=== PATIENT | female | born 1955 | race Caucasian/White ===

== ENCOUNTER → 2017-03-24 | Outpatient (CLI) | payer BC ==
[~2017-03-24] MED LIST: ATOR-24 PO; CHOL100010 PO; DVN80 PO; HYDR25TA4 PO; LEVO125T5 PO; METO50TA16 PO
[2017-03-24 10:33] LABS: BASO % 0.7 %; BASO ABS # 0.04 K/uL (0-0.2); COMPLETE YES; EOS % 3.7 %; HEMATOCRIT 42.3 % (37-47); IG% 0.2 %; LYMPH % 21.2 %; LYMPH ABS # 1.15 K/uL (1.2-3.4); MEAN CELL VOLUME 88.5 fL (80-100); MEAN CORPUSCULAR HEMOGLOBIN 29.1 pg (25-34); MEAN CORPUSCULAR HGB CONC 32.9 g/dl (32-36); MONO % 11.3 %; NEUT % 62.9 %; PLATELET COUNT 251 K/uL (130-400); RED BLOOD COUNT 4.78 M/uL (4.2-5.4); WHITE BLOOD COUNT 5.42 K/uL (4.8-10.8)
[2017-03-24 10:40] LABS: ESTIMATED AVERAGE GLUCOSE 123 mg/dl; HA1C FLAG Normal (Normal)
[2017-03-24 10:58] LABS: ALT/SGPT 35 U/L (12-78); AST/SGOT 21 U/L (15-37); BLOOD UREA NITROGEN 16 mg/dl (7-18); BUN/CREATININE RATIO 16.8 (10-20); CALCIUM 8.8 mg/dl (8.5-10.1); CARBON DIOXIDE 32 mmol/L (21-32); CHLORIDE 105 mmol/L (98-107); CREATININE 0.93 mg/dl (0.60-1.20); GLUCOSE 102 mg/dl (70-99); POTASSIUM 3.7 mmol/L (3.5-5.1); SODIUM 143 mmol/L (136-145)
[2017-03-24 11:09] LABS: CHOLESTEROL 145 mg/dl (0-200); CHOLESTEROL/HDL RATIO 2.7; HDL CHOLESTEROL 54 mg/dl; LDL CHOLESTEROL CALCULATED 64 mg/dl; TRIGLYCERIDES 134 mg/dl (0-150); VERY LOW DENSITY LIPOPROT CALC 27 mg/dl
== END | disposition home or self-care (01) ==
LOC: C.LAB 09:25
PROVIDERS: ATTEND Physician Assistant
DX: E03.9 Hypothyroidism, unspecified (principal); E78.00 Pure hypercholesterolemia, unspecified

== ENCOUNTER → 2017-09-28 | Outpatient (CLI) | payer BC ==
[2017-09-28 09:37] LABS: BASO % 0.6 %; BASO ABS # 0.04 K/uL (0-0.2); COMPLETE YES; EOS % 3.3 %; HEMATOCRIT 41.2 % (37-47); IG% 0.5 %; LYMPH % 22.2 %; LYMPH ABS # 1.41 K/uL (1.2-3.4); MEAN CORPUSCULAR HEMOGLOBIN 29.9 pg (25-34); MEAN CORPUSCULAR HGB CONC 33.3 g/dl (32-36); MEAN PLATELET VOLUME 9.8 fL (7.4-10.4); MONO % 8.8 %; NEUT % 64.6 %; PLATELET COUNT 287 K/uL (130-400); RED BLOOD COUNT 4.58 M/uL (4.2-5.4); WHITE BLOOD COUNT 6.35 K/uL (4.8-10.8)
[2017-09-28 09:56] LABS: ESTIMATED AVERAGE GLUCOSE 123 mg/dl; HA1C FLAG Normal (Normal)
[2017-09-28 10:09] LABS: ALT/SGPT 48 U/L (12-78); AST/SGOT 31 U/L (15-37); BLOOD UREA NITROGEN 13 mg/dl (7-18); BUN/CREATININE RATIO 13.5 (10-20); CALCIUM 8.6 mg/dl (8.5-10.1); CARBON DIOXIDE 30 mmol/L (21-32); CHLORIDE 103 mmol/L (98-107); CREATININE 0.93 mg/dl (0.60-1.20); GLUCOSE 106 mg/dl (70-99); POTASSIUM 3.4 mmol/L (3.5-5.1); SODIUM 136 mmol/L (136-145)
[2017-09-28 10:20] LABS: CHOLESTEROL 135 mg/dl (0-200); CHOLESTEROL/HDL RATIO 2.5; HDL CHOLESTEROL 53 mg/dl; LDL CHOLESTEROL CALCULATED 57 mg/dl; TRIGLYCERIDES 125 mg/dl (0-150); VERY LOW DENSITY LIPOPROT CALC 25 mg/dl
== END | disposition home or self-care (01) ==
LOC: C.LAB1850 08:52
PROVIDERS: ATTEND Physician Assistant
DX: E78.00 Pure hypercholesterolemia, unspecified (principal); I10 Essential (primary) hypertension; R73.9 Hyperglycemia, unspecified

== ENCOUNTER → 2017-12-10 | Day surgery (SDC) | payer BC ==
[2017-11-27 10:46] VITALS: Ht 165.1 cm; Wt 130.4 kg
[~2017-12-10] VITALS: Ht 165.1 cm; Wt 130.4 kg
[~2017-12-10] MED LIST changes: -CHOL100010 PO; +LIDOCAINE HCL 2% 2 ML VIAL (20MG/ML) ONE; +PROPOFOL IV EMULSION 10 MG/ML 20 ML VIAL IV ONE; +SODIUM CHLORIDE 0.9% 500ML 500 ML IV ONE
--- NOTE | 2017-12-10 11:21 | Endo History and Physical ---
History & Physical Date of Service: Dec 10, 2017. Chief Complaint: screening Referring Physician: Dr. Pham History of Present Illness 62 yo CF who presents for screening colonoscopy. Past Surgical History Hx Cardiac Surgery: No Hx Internal Defibrillator: No Hx Pacemaker: No Hx Abdominal Surgery: No Hx of Implantable Prosthesis: No Hx Post-Op Nausea and Vomiting: No Hx Cancer Surgery: No Hx Thoracic Surgery: No Hx Orthopedic: No Hx Urinary Tract Surgery: No Family History IBD Social History Smoking Status: Never Smoker Hx Substance Use: No Hx Alcohol Use: No Allergies Coded Allergies: No Known Allergies (Unverified , 12/10/17) Current Medications Reported Home Medications Medications Dose Route/Sig Max Daily Dose Days Date Category Lopressor (Metoprolol Tartrate) 50 Mg Tab 50 Mg PO BID 04/05/16 Reported Diovan (Valsartan) 80 Mg Tab 80 Mg PO QAM 04/05/16 Reported Hctz (Hydrochlorothiazide) 25 Mg Tab 25 Mg PO QAM 04/05/16 Reported Lipitor (Atorvastatin Calcium) 40 Mg Tab 40 Mg PO HS 04/05/16 Reported Levothyroxine Sodium 125 Mcg Tab 125 Mcg PO QAM 04/05/16 Reported Vital Signs Weight (Kilograms): 130.45 Height (Feet): 5 Height (Inches): 5 Date Time Temp Pulse Resp B/P (MAP) Pulse Ox O2 Delivery O2 Flow Rate FiO2 12/10/17 10:31 36.6 85 20 148/99 (115) 95 Room Air Physical Exam General Appearance: WD/WN, no apparent distress Respiratory/Chest: Auscultation: breath sounds normal Cardiovascular: Heart Auscultation: RRR Abdomen: Bowel Sounds: normal Inspection & Palpation: soft, non-distended, no tenderness, guarding & rebound Assessment and Plan Assessment: 62 yo CF who presents for screening colonoscopy. Plan: Proceed with colonoscopy.
--- NOTE | 2017-12-10 12:12 | Discharge Instructions ---
Endoscopy Patient Instructions Date / Procedure(s) Performed Dec 10, 2017. Colonoscopy Allergy Information Coded Allergies: No Known Allergies (Unverified , 12/10/17) Discharge Date / Findings Dec 10, 2017. Diverticulosis Internal hemorrhoids Medication Instructions OK to resume all medications today as prescribed Reported Home Medications Medications Dose Route/Sig Max Daily Dose Days Date Category Lopressor (Metoprolol Tartrate) 50 Mg Tab 50 Mg PO BID 04/05/16 Reported Diovan (Valsartan) 80 Mg Tab 80 Mg PO QAM 04/05/16 Reported Hctz (Hydrochlorothiazide) 25 Mg Tab 25 Mg PO QAM 04/05/16 Reported Lipitor (Atorvastatin Calcium) 40 Mg Tab 40 Mg PO HS 04/05/16 Reported Levothyroxine Sodium 125 Mcg Tab 125 Mcg PO QAM 04/05/16 Reported Provider Instructions Activity Restrictions - No exercising or heavy lifting for 24 hours. - Do not drink alcohol the day of the procedure. - Do not drive a car or operate machinery until the day after the procedure. - Do not make any important decisions or sign important papers in 24 hours after the procedure. Following Day: - Return to full activity which may include returning to work/school. Diet Start your diet with liquids and light foods (jello, soup, juice, toast). Then eat your usual diet if not nauseated. Treatment For Common After Affects For mild abdominal pain, bloating, or excessive gas: - Rest - Eat lightly - Lie on right side Follow-Up Information Follow-up with Dr. Pham as scheduled Anesthesia Information What You Should Know You have had a procedure that required some medicine to reduce anxiety and discomfort. This treatment is called moderate sedation. After receiving the treatment, you may be sleepy, but you will be able to breathe on your own. The effects of the treatment may last for several hours. Follow these instructions along with Activity/Diet recommendations noted above: * Do NOT do anything where dizziness or clumsiness would be dangerous. * Rest quietly at home today, then you can be up and about tomorrow. * Have a responsible person stay with you the rest of today. * You may have had an I.V. today. If so, you may take the dressing off later today. Recommendations Call your doctor if: * Trouble breathing * Continuous vomiting for more than 24 hours * Temperature above 101 degrees * Severe abdominal pain or bloating * Pain not relieved by pain medicine ordered * There is increased drainage or redness from any incision * A large amount of rectal bleeding greater than 2-3 tablespoons. (If you had a polyp/s removed or have hemorrhoids, a small amount of blood - from the rectum is to be expected.) * You have any unanswered questions or concerns. IN THE EVENT OF A SERIOUS EMERGENCY, GO TO THE NEAREST EMERGENCY ROOM Your discharge instructions were prepared by provider Puma Leon. Patient Instructions Signature Page Pattie Ackerman Patient (or Guardian) Signature/Date: I have read and understand the instructions given to me by my caregivers. Caregiver/RN/Doctor Signature/Date: The above-named patient and/or guardian has received patient instructions on this date. + Original Patient Signature Page (only) stays with chart. Please make copy for patient.
--- NOTE | 2017-12-10 12:17 | GI REPORT ---
Procedure Date: 12/10/2017 11:18 AM Procedure: Colonoscopy Indications: Screening for colorectal malignant neoplasm Medicines: Monitored Anesthesia Care Complications: No immediate complications. Estimated Blood Loss: Estimated blood loss: none. Procedure: Pre-Anesthesia Assessment: - Prior to the procedure, a History and Physical was performed, and patient medications and allergies were reviewed. The patient's tolerance of previous anesthesia was also reviewed. The risks and benefits of the procedure and the sedation options and risks were discussed with the patient. All questions were answered, and informed consent was obtained. Prior Anticoagulants: The patient has taken no previous anticoagulant or antiplatelet agents. ASA Grade Assessment: III - A patient with severe systemic disease. After reviewing the risks and benefits, the patient was deemed in satisfactory condition to undergo the procedure. After I obtained informed consent, the scope was passed under direct vision. Throughout the procedure, the patient's blood pressure, pulse, and oxygen saturations were monitored continuously. The scope was introduced through the anus and advanced to the terminal ileum. The colonoscopy was performed without difficulty. The patient tolerated the procedure well. The quality of the bowel preparation was good. The terminal ileum, ileocecal valve, appendiceal orifice, and rectum were photographed. Findings: The perianal and digital rectal examinations were normal. Multiple small-mouthed diverticula were found in the sigmoid colon. Non-bleeding internal hemorrhoids were found during retroflexion. The hemorrhoids were small. Impression: - Diverticulosis in the sigmoid colon. - Non-bleeding internal hemorrhoids. - No specimens collected. Recommendation: - Resume previous diet. - Continue present medications. - Repeat colonoscopy in 10 years for surveillance. - Return to primary care physician as previously scheduled. Puma Leon, 12/10/2017 12:16:54 PM This report has been signed electronically. Note Initiated On: 12/10/2017 11:18 AM I attest to the content of the Intraoperative Record and orders documented therein, exceptions below
[2017-12-10 12:27] VITALS: BP 137/89; PULSE 76; O2SAT 97
--- NOTE | 2017-12-10 12:33 | Anesthesiology Progress Note ---
Anesthesia Post Op Note Date & Time Dec 10, 2017 at 12:33 Vital Signs Pain Intensity: 0 Vital Signs Past 12 Hours Date Time Temp Pulse Resp B/P (MAP) Pulse Ox O2 Delivery O2 Flow Rate FiO2 12/10/17 12:27 76 18 137/89 (105) 97 Room Air 12/10/17 12:12 73 20 117/82 (94) 98 Room Air 12/10/17 11:57 73 16 114/75 (88) 97 Room Air 12/10/17 10:31 36.6 85 20 148/99 (115) 95 Room Air Notes Mental Status: alert / awake / arousable, participated in evaluation Pt Amnestic to Procedure: Yes Nausea / Vomiting: adequately controlled Pain: adequately controlled Airway Patency, RR, SpO2: stable & adequate BP & HR: stable & adequate Hydration State: stable & adequate Anesthetic Complications: no major complications apparent
== END | disposition home or self-care (01) ==
LOC: C.GI 10:13
PROVIDERS: ATTEND Internal Medicine
DX: Z12.11 Encounter for screening for malignant neoplasm of colon (principal); K57.30 Diverticulosis of large intestine without perforation or abscess without bleeding; K64.8 Other hemorrhoids; Z79.899 Other long term (current) drug therapy

== ENCOUNTER 2023-08-05 11:26 | Inpatient (IN) ==
[2023-08-05 12:39] LABS: Basophils % (auto) 1.4 %; Eosinophils # (auto) 0.03 K/uL (0.00-0.50); Eosinophils % (auto) 0.4 %; Hematocrit (blood only) 35.7 % (37.0-47.0); Hemoglobin 11.9 g/dl (12.0-16.0); Immature Granulocytes # (auto) 0.01 K/uL (0.01-0.20); Immature Granulocytes % (auto) 0.1 %; Lymphocytes # (auto) 0.69 K/uL (1.20-3.40); Lymphocytes % (auto) 9.9 %; Mean Corpuscular Hemoglobin 29.3 pg (25.0-34.0); Mean Corpuscular Hgb Conc 33.3 g/dL (32.0-36.0); Mean Corpuscular Volume 87.9 fL (80.0-100.0); Mean Platelet Volume 8.6 fL (9.4-12.4); Monocytes # (auto) 0.61 K/uL (0.11-0.59); Monocytes % (auto) 8.8 %; Neutrophils % (auto) 79.4 %; Platelet Count 383 K/uL (130-400); RDW Coefficient of Variation 17.6 % (11.5-14.5); RDW Standard Deviation 55.8 fL (36.4-46.3); Red Blood Count 4.06 M/uL (4.20-5.40); White Blood Count 6.94 K/ul (4.8-10.8)
--- NOTE | 2023-08-05 12:40 | XRay Report ---
XR chest 1V not portable CLINICAL HISTORY: Chest pain, nonspecific TECHNIQUE: Single frontal radiograph of the chest was obtained. Comparison: Comparison is made to chest radiograph 08/04/2023 FINDINGS: No lines and tubes are seen. Cardiomegaly is noted. The aortic arch is calcified. Bilateral lower levi g predominant airspace opacities are seen. Moderate left and small right pleural effusions are seen. IMPRESSION: 1. Moderate left and small right pleural effusions are increased from prior exam. 2. Bilateral lower lung predominant airspace opacities likely represent atelectasis with or without superimposed aspiration/pneumonia. ACT 112: Negative or not required by law. Electronically signed by: Hector Castro M.D. 08/05/2023 12:38 PM
[2023-08-05 12:43] LABS: Alanine Aminotransferase 15 U/L (7-52); Albumin Globulin Ratio 1.1 (0.9-2); Albumin Level 4.1 gm/dl (3.4-5.0); Alkaline Phosphatase 100 U/L (34-104); Anion Gap 8 (3-11); Aspartate Aminotransferase 20 U/L (13-39); BUN Creatinine Ratio 13.3 (10-20); Blood Urea Nitrogen 13 mg/dl (6-23); Calcium 9.4 mg/dl (8.6-10.3); Carbon Dioxide 26 mmol/L (21-32); Chloride 104 mmol/L (98-107); Est GFR (African American) 68.7 ml/min; Est GFR (Non-African American) 59.3 ml/min; Globulin 3.6 gm/dl (2.5-4.0); Glucose 109 mg/dl (70-99(Fasting)); Potassium 3.6 mmol/L (3.5-5.1); Sodium 138 mmol/L (136-145); Total Protein 7.7 gm/dl (6.0-8.3)
[2023-08-05 12:50] LABS: Troponin I High Sensitivity 21.3 pg/ml (0-14)
[2023-08-05 12:53] LABS: INR 1.1 (0.9-1.1); Partial Thromboplastin Time 28.3 Seconds (21.0-31.0); Prothrombin Time 11.5 Seconds (9.0-12.0)
[2023-08-05 13:03] LABS: Influenza A virus by PCR Negative (Neg); Influenza B virus by PCR Negative (Neg); RSV by PCR Negative (Neg); SARS CoV2 RNA(COVID-19) Ceph NEGATIVE (Negative)
--- NOTE | 2023-08-05 13:53 | Emergency Department Note ---
Impression & Plan Pleural effusion ED Provider Note NAME: KEISHA DUQUE AGE: 68 SEX: F : 1955 ARRIVES VIA: Ambulance INFORMANT: Patient, ED PROVIDER(S): Sari Monzon MD CHIEF COMPLAINT: Shortness of breath HPI: This is a 68-year-old female history of CML, hypercholesterolemia, hypothyroid, hyperglycemia, hypertension presenting for shortness of breath. Patient notes that over the past few weeks she has noticed increasing exertional dyspnea. She also notes shortness of breath when lying flat and requires sitting up or pillows in order to sleep. She does have a history of CML leukemia and is currently undergoing treatment. She started on amlodipine about 1 month ago for hypertension. At home she does not require home oxygen however while here she was requiring 2 L. She notes that her exertional dyspnea is worsening day by day. She has no chest pain. Only notes chronic leg swelling, no new leg swelling. States has had happened before and she was started on Lasix for this. ROS: See above HPI for pertinent positives & negatives. A total of 10 systems reviewed and were otherwise negative. PAST MEDICAL HISTORY: See Below PAST SURGICAL HISTORY: See Below FAMILY HISTORY: See Below SOCIAL HISTORY: See Below HOME MEDICATIONS: See Below ALLERGIES: See Below VITALS: See Below PHYSICAL EXAMINATION: General: resting comfortably in no acute distress Head: Normocephalic and atraumatic Eyes: Normal inspection, extraocular muscles intact, no conjunctival pallor Ear, nose, throat: Normal external exam Neck: Normal range of motion Respiratory: Mild respiratory distress, audible wheezing, crackles at the bases Cardiovascular: RRR without murmur appreciated GI: soft, nontender, no guarding or rebound Extremities: pulses intact with good cap refills, no LE pitting edema or calf tenderness Neuro: The patient awake and alert, appropriately conversive,no focal decifits Skin: Warm, dry, and intact MEDICAL DECISION MAKING: This is a 68-year-old female presenting for shortness of breath. Patient has exertional dyspnea, orthopnea. Patient had a triage work-up that included x-ray which shows worsening pleural effusion bilaterally. She also has a troponin elevation into the 20s. Consider ACS, PE as well however low likelihood. Likely related to patient's CML and now pleural effusions. Could be related to CHF as well Patient D-dimer was elevated on blood work, necessitating CTA to rule out PE. PE is ruled out based on CTA but does show pleural effusions bilaterally. Patient will be given furosemide 40 mg IV at this time. Patient will be admitted for hypoxia, pleural effusions. Triage Nursing notes reviewed. Prior medical records reviewed Vital Signs: reviewed and remarkable for no significant abnormalities Differential diagnosis: ACS, PE, pleural effusion, CHF, pneumonia ER treatment provided: See below Diagnostics interpreted by me: ECG: ECG reviewed by me with normal sinus rhythm, rate of 69, normal axis, normal TN, normal QRS, normal QTc, no ST segment elevations consistent with STEMI criteria Cardiac Monitoring: An order was placed for continuous cardiac monitoring. The monitor shows a rate of with rhythm. Laboratory studies: As stated above and show below. Imaging studies: See below. Radiographic imaging was reviewed by myself Consultation(s): None Past Med/Surg History Medical History (Updated 08/05/23 @ 16:48 by Sari Monzon MD) CML (chronic myelocytic leukemia) HTN (hypertension) Hypercholesterolemia Hyperglycemia Hypothyroidism in adult Surgical History H/O oral surgery History of hysteroscopy Family History Other Prostate cancer Denies family history of Ovarian cancer Breast cancer Lung cancer Colorectal cancer Social History Smoking Status: Never smoker Second Hand Exposure: No; Do You Dip or Chew Tobacco: No; Hx Alcohol Use: No Hx Substance Use: No Preferred Language: Mongolian marital status: Single Current Living Situation: Alone current occupational status: retired Feels Safe at Home: Yes Childhood Exposure to Second-Hand Smoke: No Diet: regular Dental Care, Regularly: Yes Physical Activity Frequency: Does not Exercise Seatbelt Use: always Sunscreen Use: Yes Allergies Allergies Allergy/AdvReac Type Severity Reaction Status Date / Time imatinib Allergy Intermediate horrible Unverified 08/05/23 16:22 rash and itching all over No Known Drug Allergies Allergy Verified 07/26/23 10:08 Home Meds Home Medications Medication Instructions Recorded Confirmed dasatinib 100 mg tablet 100 mg PO DAILY 07/26/23 08/05/23 furosemide 20 mg tablet 20 mg PO DAILY 07/26/23 08/05/23 Previous Rx's Medication Instructions Recorded metoprolol tartrate 50 mg tablet 50 mg PO BID #180 tabs 01/25/23 levothyroxine 150 mcg capsule 150 mcg PO DAILY #90 caps 04/02/23 atorvastatin 40 mg tablet 40 mg PO HS #90 tabs 05/02/23 amlodipine 5 mg-olmesartan 40 mg 1 tab PO DAILY #30 tabs 07/26/23 tablet Results & Data (ED) Vital Signs Vital Signs - 24 hr 08/05/23 11:45 08/05/23 11:52 08/05/23 13:28 Temperature 36.5 C Temperature Source Temporal Artery Scan Pulse Rate 71 75 Respiratory Rate 18 Respiratory Effort / Characteristics Respiratory Depth Respiratory Pattern Blood Pressure 186/90 H Blood Pressure Mean 122 Pulse Oximetry 90 Oxygen Delivery Method Nasal Cannula Nasal Cannula Oxygen Flow Rate 2 Sepsis Recent Fever Within 48 Hours No Sepsis New/Unexplained Change in Mental Status N/A Sepsis Action Taken by Nursing No Action Required 08/05/23 13:20 08/05/23 13:20 Temperature Temperature Source Pulse Rate Respiratory Rate 19 Respiratory Effort / Characteristics Non-Labored Spontaneous Respiratory Depth Normal Respiratory Pattern Regular Blood Pressure Blood Pressure Mean Pulse Oximetry 94 94 Oxygen Delivery Method Nasal Cannula Nasal Cannula Oxygen Flow Rate 2 2 Sepsis Recent Fever Within 48 Hours Sepsis New/Unexplained Change in Mental Status Sepsis Action Taken by Nursing Laboratory Data 08/05/23 12:10 08/05/23 12:10 Lab Results 08/05/23 08/05/23 08/05/23 Range/Units 12:10 12:10 12:10 WBC 6.94 (4.8-10.8) K/ul RBC 4.06 L (4.20-5.40) M/uL Hgb 11.9 L (12.0-16.0) g/dl Hct 35.7 L (37.0-47.0) % MCV 87.9 (80.0-100.0) fL MCH 29.3 (25.0-34.0) pg MCHC 33.3 (32.0-36.0) g/dL RDW Std Deviation 55.8 H (36.4-46.3) fL RDW Coeff of Xuan 17.6 H (11.5-14.5) % Plt Count 383 (130-400) K/uL MPV 8.6 L (9.4-12.4) fL Immature Gran % (Auto) 0.1 % Neut % (Auto) 79.4 % Lymph % (Auto) 9.9 % Cannon % (Auto) 8.8 % Eos % (Auto) 0.4 % Baso % (Auto) 1.4 % Neut # (Auto) 5.50 (1.40-6.50) K/uL Lymph # (Auto) 0.69 L (1.20-3.40) K/uL Cannon # (Auto) 0.61 H (0.11-0.59) K/uL Eos # (Auto) 0.03 (0.00-0.50) K/uL Baso # (Auto) 0.10 (0.00-0.20) K/uL Immature Gran # (Auto) 0.01 (0.01-0.20) K/uL PT 11.5 (9.0-12.0) Seconds INR 1.1 (0.9-1.1) APTT 28.3 (21.0-31.0) Seconds PTT Ratio 1.0 D-Dimer (0-500) ug/L FEU Sodium 138 (136-145) mmol/L Potassium 3.6 (3.5-5.1) mmol/L Chloride 104 (98-107) mmol/L Carbon Dioxide 26 (21-32) mmol/L Anion Gap 8 (3-11) BUN 13 (6-23) mg/dl Creatinine 0.98 (0.6-1.2) mg/dl Est Cr Clr Drug Dosing Not Reportable Est GFR ( Amer) 68.7 ml/min Est GFR (Non-Af Amer) 59.3 ml/min BUN/Creatinine Ratio 13.3 (10-20) Glucose 109 H (70-99(Fasting)) mg/dl Calcium 9.4 (8.6-10.3) mg/dl Total Bilirubin 1.0 (0.2-1.0) mg/dl AST 20 (13-39) U/L ALT 15 (7-52) U/L Alkaline Phosphatase 100 (34-104) U/L Troponin I High Sens 21.3 H (0-14) pg/ml Total Protein 7.7 (6.0-8.3) gm/dl Albumin 4.1 (3.4-5.0) gm/dl Globulin 3.6 (2.5-4.0) gm/dl Albumin/Globulin Ratio 1.1 (0.9-2) SARS-CoV-2 (PCR) (Negative) Influenza Type A (PCR) (Neg) Influenza Type B (PCR) (Neg) RSV (RT-PCR) (Neg) 08/05/23 08/05/23 08/05/23 Range/Units 12:10 12:11 14:21 WBC (4.8-10.8) K/ul RBC (4.20-5.40) M/uL Hgb (12.0-16.0) g/dl Hct (37.0-47.0) % MCV (80.0-100.0) fL MCH (25.0-34.0) pg MCHC (32.0-36.0) g/dL RDW Std Deviation (36.4-46.3) fL RDW Coeff of Xuan (11.5-14.5) % Plt Count (130-400) K/uL MPV (9.4-12.4) fL Immature Gran % (Auto) % Neut % (Auto) % Lymph % (Auto) % Cannon % (Auto) % Eos % (Auto) % Baso % (Auto) % Neut # (Auto) (1.40-6.50) K/uL Lymph # (Auto) (1.20-3.40) K/uL Cannon # (Auto) (0.11-0.59) K/uL Eos # (Auto) (0.00-0.50) K/uL Baso # (Auto) (0.00-0.20) K/uL Immature Gran # (Auto) (0.01-0.20) K/uL PT (9.0-12.0) Seconds INR (0.9-1.1) APTT (21.0-31.0) Seconds PTT Ratio D-Dimer 1750 H* (0-500) ug/L FEU Sodium (136-145) mmol/L Potassium (3.5-5.1) mmol/L Chloride (98-107) mmol/L Carbon Dioxide (21-32) mmol/L Anion Gap (3-11) BUN (6-23) mg/dl Creatinine (0.6-1.2) mg/dl Est Cr Clr Drug Dosing Est GFR ( Amer) ml/min Est GFR (Non-Af Amer) ml/min BUN/Creatinine Ratio (10-20) Glucose (70-99(Fasting)) mg/dl Calcium (8.6-10.3) mg/dl Total Bilirubin (0.2-1.0) mg/dl AST (13-39) U/L ALT (7-52) U/L Alkaline Phosphatase (34-104) U/L Troponin I High Sens 18.8 H (0-14) pg/ml Total Protein (6.0-8.3) gm/dl Albumin (3.4-5.0) gm/dl Globulin (2.5-4.0) gm/dl Albumin/Globulin Ratio (0.9-2) SARS-CoV-2 (PCR) NEGATIVE (Negative) Influenza Type A (PCR) Negative (Neg) Influenza Type B (PCR) Negative (Neg) RSV (RT-PCR) Negative (Neg) Administered Medications Discontinued Medications Furosemide (Furosemide 40 Mg/4 Ml Vial) 40 mg IV ONE ONE Stop: 08/05/23 15:20 Last Admin: 08/05/23 15:28 Dose: 40 mg Documented By: BRONSON Ioversol (Optiray 320 500ml) 112 ml IV ONCE ONE Stop: 08/05/23 14:31 Last Admin: 08/05/23 14:31 Dose: 112 ml Documented By: MANUELITO Imaging Data Radiologist's Impression: Chest X-Ray 08/05/23 11:52 XR chest 1V not portable CLINICAL HISTORY: Chest pain, nonspecific TECHNIQUE: Single frontal radiograph of the chest was obtained. Comparison: Comparison is made to chest radiograph 08/04/2023 FINDINGS: No lines and tubes are seen. Cardiomegaly is noted. The aortic arch is calcified. Bilateral lower lung predominant airspace opacities are seen. Moderate left and small right pleural effusions are seen. IMPRESSION: 1. Moderate left and small right pleural effusions are increased from prior exam. 2. Bilateral lower lung predominant airspace opacities likely represent atelectasis with or without superimposed aspiration/pneumonia. ACT 112: Negative or not required by law. Electronically signed by: Hector Castro M.D. 08/05/2023 12:38 PM Chest CTA 08/05/23 14:04 CT angio chest PE protocol CLINICAL HISTORY: PE TECHNIQUE: Multidetector row helical CT of the chest was performed with angiographic protocol. Coronal and sagittal reformations were obtained. Coronal and sagittal MIPS were obtained from the axial data set and were submitted for review. Automated dose lowering techniques and/or adjustment according to patient size were utilized for this exam. CT DOSE: 802.08 mGy.cm Comparison: Comparison is made to chest radiograph 08/05/2023 FINDINGS: Lungs and pleura: Moderate bilateral pleural effusions are seen. Underlying atelectasis is noted there is a 7 mm nodule in the right lower lobe ( series 4 image 102). Heart and pericardium: Cardiomegaly is seen with biatrial enlargement. Vessels: No evidence of pulmonary embolism. Mediastinum and dionicio: Unremarkable. Chest wall and lower neck: Unremarkable. Abdomen: Unremarkable. Bones: Degenerative changes in the thoracic spine. IMPRESSION: 1. No evidence of pulmonary embolus. 2. Bilateral pleural effusions with underlying atelectasis. 3. 7 mm nodule in the right lower lobe According to Fleischner criteria, CT chest should be performed at 6-12 months. In high-risk patients, a 18-24 month follow-up is recommended, in low-risk patients, this 18-24 month follow-up CT is optional. ACT 112: Negative or not required by law. Electronically signed by: Hector Castro M.D. 08/05/2023 3:26 PM Discharge Plan Visit Data Chief Complaint: Shortness of Breath/Dyspnea Stated Complaint: SOB ED Provider: Sari Monzon Discharge Problem: Pleural effusion Forms Stand Alone Forms: [employer] Prescriptions Prescriptions: No Action metoprolol tartrate 50 mg tablet 50 mg PO BID Qty: 180 3RF levothyroxine 150 mcg capsule 150 mcg PO DAILY Qty: 90 3RF atorvastatin 40 mg tablet 40 mg PO HS Qty: 90 1RF furosemide 20 mg tablet 20 mg PO DAILY dasatinib 100 mg tablet 100 mg PO DAILY amlodipine-olmesartan 5-40 mg tablet 1 tab PO DAILY Qty: 30 2RF Referrals Referrals: Aristides Narayanan MD [Primary Care Provider] -
[2023-08-05 14:02] LABS: D Dimer 1750 ug/L FEU (0-500)
[2023-08-05] MEDS ORDERED: OPTIRAY 320 500ml IV ONE (14:30)
[2023-08-05] MEDS ORDERED: FUROSEMIDE 40 MG/4 ML VIAL IV ONE (15:19)
--- NOTE | 2023-08-05 15:29 | CT Scan Report ---
CT angio chest PE protocol CLINICAL HISTORY: PE TECHNIQUE: Multidetector row helical CT of the chest was performed with angiographic protocol. Cabrales l and sagittal reformations were obtained. Coronal and sagittal MIPS were obtained from the axial julisa a set and were submitted for review. Automated dose lowering techniques and/or adjustment according to patient size were utilized for this exam. CT DOSE: 802.08 mGy.cm Comparison: Comparison is made to chest radiograph 08/05/2023 FINDINGS: Lungs and pleura: Moderate bilateral pleural effusions are seen. Underlying atelectasis is noted ther e is a 7 mm nodule in the right lower lobe ( series 4 image 102). Heart and pericardium: Cardiomegaly is seen with biatrial enlargement. Vessels: No evidence of pulmonary embolism. Mediastinum and dionicio: Unremarkable. Chest wall and lower neck: Unremarkable. Abdomen: Unremarkable. Bones: Degenerative changes in the thoracic spine. IMPRESSION: 1. No evidence of pulmonary embolus. 2. Bilateral pleural effusions with underlying atelectasis. 3. 7 mm nodule in the right lower lobe According to Fleischner criteria, CT chest should be performe d at 6-12 months. In high-risk patients, a 18-24 month follow-up is recommended, in low-risk patients , this 18-24 month follow-up CT is optional. ACT 112: Negative or not required by law. Electronically signed by: Hector Castro M.D. 08/05/2023 3:26 PM
--- NOTE | 2023-08-05 15:58 | History & Physical Report ---
Date of Service August 05, 2023 Assessment & Plan (1) 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): Plan: Dyspnea With bilateral pleural effusions Received 40 mg Lasix in ER with 3 episodes of brisk urine output since CTA shows moderate bilateral effusions, no evidence of PE Clinically volume overloaded with JVD, bilateral moderate pleural effusions, and lower extremity swelling. Lower extremity swelling is multifactorial having recently started amlodipine BNP pending Recent echo showed preserved EF and no evidence of diastolic dysfunction, patient denies high salt load, Patient is also on Dasatinib, is at risk for TKI induced cardiomyopathy and heart failure. Limited echo pending. If this is normal DDx include malignant effusions w/ known leukemia +and pulmonary nodule Continue Lasix, patient is having brisk output. If echo shows no evidence of cardiomyopathy, consult pulmonary for diagnostic and therapeutic tap. Patient is not on blood thinners. We will admit to telemetry for dyspnea with concern for cardiomyopathy/new CHF (2) CML (chronic myelocytic leukemia): Plan: CML Patient on Dasatinib TKI, white count currently normal and stable Dasatinib temporarily held pending cardiomyopathy evaluation (3) Right leg swelling: (4) Hypothyroidism in adult: Plan: - tsh pending, continue synthroid (5) Hypercholesterolemia: Plan: Hyperlipidemia Continue atorvastatin (6) HTN (hypertension): Plan: Hypertension Continue amlodipine/olmesartan. No EMMETT on admission. Mildly hypertensive on admission, did not take her amlodipine or olmesartan. These were ordered at time of hospitalist evaluation Lasix continued Metoprolol continued Plan DVT PPx: SCDs, if no thoracentesis needed then +lovenox Diet: HH CODE: FUll Dispo PCU History of Present Illness Primary Care Provider: Aristides Narayanan MD Pattie is a 68-year-old female with a past medical history of CML, hyperlipidemia, hypothyroidism, hypertension and no prior history of heart failure who presents with worsening shortness of breath and orthopnea. Symptoms have increased over the last week. She does not have a home oxygen requirement. D-dimer is elevated, CTA on admission shows no evidence of PE, moderate bilateral pleural effusions are noted. 7 mm nodule in the right lower lobe is noted which may be reimaged in 6 to 12 months for stability Troponin is mildly elevated, downtrending and suspicious for demand No leukocytosis No EMMETT or electrolyte abnormalities COVID is negative No evidence of superimposed pneumonia Effusions are bilateral and increased from prior exam. Patient was noted to have a preserved EF of 65-70% June 2023 with no significant diastolic dysfunction. Differential for effusions include malignant exudative effusion, has not yet seen pulmonary for tap Shaheen reports she has had wosened breathign for 1 week. MOre dyspneic on exertion, and now notices her breathign is worse when laying flat. No history of similar symptoms. No history of heart failure. R leg is always mroe swollen than the left, but seems a little more than normal and also started amlodipine on 07/27/23. No fevers or chills. Is cold, but no shaking chills. Has had an intermittent new dry cough in the last week or so. Nonproductive cough. No nausea/vomiting. Loose bowels sometimes, but no diarrhea otherwise. No hematochezia or melena. Diagnosed with CML this past October. She attributes this to the covid booster, notes her WBC rapidly increased 6 months after the booster shot. She is taking dasatinib 100mg daily. Follows with Dr. Acevedo. Was switched from her initial therapy due to itching and sweats. Medical History: Reviewed Medications: Reviewed. Surgical History: Reviewed Family history: Reviewed Allergies: Reviewed Social History: No tobacco, etoh, or marijuana use Code Status: Full Code Allergies Allergy/AdvReac Type Severity Reaction Status Date / Time imatinib Allergy Intermediate horrible Unverified 08/05/23 16:22 rash and itching all over No Known Drug Allergies Allergy Verified 07/26/23 10:08 Home Medications Medication Instructions Recorded Confirmed Type metoprolol tartrate 50 mg tablet 50 mg PO BID #180 tabs 01/25/23 08/05/23 Rx levothyroxine 150 mcg capsule 150 mcg PO DAILY #90 caps 04/02/23 08/05/23 Rx atorvastatin 40 mg tablet 40 mg PO HS #90 tabs 05/02/23 08/05/23 Rx amlodipine 5 mg-olmesartan 40 mg 1 tab PO DAILY #30 tabs 07/26/23 08/05/23 Rx tablet dasatinib 100 mg tablet 100 mg PO DAILY 07/26/23 08/05/23 History furosemide 20 mg tablet 20 mg PO DAILY 07/26/23 08/05/23 History Past Med/Surg History Medical History (Updated 08/05/23 @ 16:14 by Aravind Vilchis MD) CML (chronic myelocytic leukemia) HTN (hypertension) Hypercholesterolemia Hyperglycemia Hypothyroidism in adult Surgical History H/O oral surgery History of hysteroscopy Family History Other Prostate cancer Denies family history of Ovarian cancer Breast cancer Lung cancer Colorectal cancer Social History Smoking Status: Never smoker Second Hand Exposure: No; Do You Dip or Chew Tobacco: No; Hx Alcohol Use: No Hx Substance Use: No Preferred Language: Spanish marital status: Single Current Living Situation: Alone current occupational status: retired Feels Safe at Home: Yes Childhood Exposure to Second-Hand Smoke: No Diet: regular Dental Care, Regularly: Yes Physical Activity Frequency: Does not Exercise Seatbelt Use: always Sunscreen Use: Yes Physical Exam Physical Exam: General: A&Ox3. NAD. Cooperative. HEENT: Atraumatic, normocephalic. Vision/hearing intact Pulm: Lungs diminished in the bases bilaterally with light crackles. No wheeze symmetrical chest rise. No increased work of breathing. No respiratory distress. Cardiac: RRR, -mrg. Radial pulses intact and symmetrical. JVD is present with HJR Abdominal: Nontender, nondistended, soft. BS present. Extremities: 1+ ankle edema bilaterally Results & Data Results & Data Vital Signs (Past 12 Hours) Vital Signs Temp Pulse Resp BP Pulse Ox O2 Del Method O2 Flow Rate 08/05/23 13:20 19 94 Nasal Cannula 2 08/05/23 13:20 94 Nasal Cannula 2 08/05/23 13:28 75 08/05/23 11:52 Nasal Cannula 2 08/05/23 11:45 36.5 C 71 18 186/90 H 90 Nasal Cannula PG Care Time/CCT Total # of Minutes Spent Total Time Spent with Patient: Total time spent is greater than 50% in coordination of care (as documented) at patient's floor/unit and/or counseling patient: Coding Level of Care Code 94038 INT INP/OBS CARE 3/75MIN Diagnoses 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) R06.09 CML (chronic myelocytic leukemia) C92.10 Right leg swelling M79.89 Hypothyroidism in adult E03.9 Hypercholesterolemia E78.00 HTN (hypertension) I10
[2023-08-05] MEDS ORDERED: ACETAMINOPHEN 325 MG TAB PO PRN (16:19)
[2023-08-05] MEDS: amLODIPine BESYLATE 5 MG TAB PO SCH (17:16)
[2023-08-05] MEDS: LOSARTAN POTASSIUM 50 MG TAB PO SCH (17:17)
[2023-08-05] MEDS: METOPROLOL TARTRATE 50 MG TAB PO SCH (20:37)
[2023-08-05] MEDS: ATORVASTATIN 40 MG TAB PO SCH (20:37)
[2023-08-06] MEDS: LEVOTHYROXINE SODIUM 150 MCG TABLET PO SCH (06:09)
--- NOTE | 2023-08-06 07:13 | Hospitalist Progress Note ---
Date of Service August 06, 2023 Assessment & Plan (1) 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): (2) CML (chronic myelocytic leukemia): (3) Right leg swelling: (4) Hypothyroidism in adult: (5) Hypercholesterolemia: (6) HTN (hypertension): Plan Patient is a 68-year-old female with a past medical history of CML, hyperlipidemia, hypothyroidism, hypertension and no prior history of heart failure who presents with worsening shortness of breath and orthopnea. # Hypoxia/Moderate Bilateral Pleural effusion: Possible CHF exacerbation vs malignant effusion vs adverse drug reaction Pt exhibits signs of volume overload such as JVD, bilateral pleural effusions, and LE swelling. BNP 325; Echo done last month - Normal EF, No DD, Severe Pul HTN 60mmhg - Started on Dasatinib for tx of CML last month. - will continue to diurese with Lasix 40mgs IV BID - daily standing weight. I and O - monitor renal function. - pending echo results - if no improvement in pleural effusion in am - consider thoracentesis #CML Patient on Dasatinib, white count stable and WNL Dasatinib temporarily held pending cardiomyopathy evaluation #Right lower lung nodule - Noted on CT. - Needs outpatient follow up # HTN/HLD/Hypothyroid Patient on amlodipine/olmesartan at home, - substitute for formulary equivalent amlodipine and losartan Continue Metoprolol - continue statin - continue levothyroxine DVT PPx: SCDs, if no thoracentesis needed then start Lovenox Diet: Admission and Anticipated Discharge Date Admission Date: August 05, 2023 Supervising Physician Co-Signing Physician Notes Resident Physician Supervision Note: I independently interviewed and examined the patient and verified the rai history and physical, reviewed labs and image studies and agree with resident findings and care plan. Ananya Blankenship is a 68-year-old female with a past medical history of CML, hyperlipidemia, hypothyroidism, hypertension and no prior history of heart failure who presents with worsening shortness of breath and orthopnea. Symptoms have increased over the last week. She does not have a home oxygen requirement. Patient evaluated at bedside this morning, found sitting up in bed, she states that she still has difficulty laying completely flat. Overall notes that she is feeling a bit better but is dependent on supplemental O2 to circumvent shortness of breath. Patient has been taking Lasix while in hospital, is unsure how much it is helping her breathing but notes increased urine output. Patient denies prior diagnosis of heart failure, also mentions that she started Dasatinib some time last month, prior to sx onset. When discussing her home blood pressure, patient notes that she chronically runs in the 180-200 systolic range, was recently started on amlodipine-olmesartan combination. Denies chest pain. Review of Systems Review of Systems: All systems reviewed & are unremarkable except as noted in HPI & below Physical Exam Constitutional: WD/WN, vitals as above Respiratory: Normal respiratory effort, mildly diminished lung sounds in lung bases bilaterally, no wheezes or rhonchi appreciated Cardiovascular: RRR, no murmurs appreciated 1+ pitting edema of RLE>LLE to the level of the calf, non-tender and without discoloration Gastrointestinal (Abdomen): bowel sounds intact, abdomen non-distended Skin: no rashes, warm and dry Psychiatric: A+Ox3, euthymic affect Results & Data Results & Data Vital Signs (Past 12 Hours) Vital Signs Temp Pulse Pulse Resp BP Pulse Ox Pulse Ox 08/06/23 06:12 192/85 H 08/06/23 04:17 76 08/06/23 01:51 08/06/23 01:51 36.6 C 72 18 190/81 H 97 08/06/23 00:00 90 21 163/72 H 93 08/06/23 00:00 93 08/05/23 23:39 90 08/05/23 22:37 94 08/05/23 19:53 87 18 194/74 H 92 O2 Del Method O2 Del Method O2 Flow Rate O2 Flow Rate 08/06/23 06:12 08/06/23 04:17 08/06/23 01:51 Nasal Cannula 4 08/06/23 01:51 Nasal Cannula 4 08/06/23 00:00 Nasal Cannula 4 08/06/23 00:00 Nasal Cannula 4 08/05/23 23:39 08/05/23 22:37 Nasal Cannula 2 08/05/23 19:53 Room Air Laboratory Results Abnormal lab results 08/05/23 08/05/23 08/05/23 Range/Units 12:10 12:10 12:10 RBC 4.06 L (4.20-5.40) M/uL Hgb 11.9 L (12.0-16.0) g/dl Hct 35.7 L (37.0-47.0) % RDW Std Deviation 55.8 H (36.4-46.3) fL RDW Coeff of Xuan 17.6 H (11.5-14.5) % MPV 8.6 L (9.4-12.4) fL Lymph # (Auto) 0.69 L (1.20-3.40) K/uL [place] # (Auto) 0.61 H (0.11-0.59) K/uL D-Dimer 1750 H* (0-500) ug/L FEU Glucose 109 H (70-99(Fasting)) mg/dl Troponin I High Sens 21.3 H (0-14) pg/ml B-Natriuretic Peptide (0-100) pg/ml 08/05/23 08/05/23 Range/Units 14:21 16:05 RBC (4.20-5.40) M/uL Hgb (12.0-16.0) g/dl Hct (37.0-47.0) % RDW Std Deviation (36.4-46.3) fL RDW Coeff of Xuan (11.5-14.5) % MPV (9.4-12.4) fL Lymph # (Auto) (1.20-3.40) K/uL [place] # (Auto) (0.11-0.59) K/uL D-Dimer (0-500) ug/L FEU Glucose (70-99(Fasting)) mg/dl Troponin I High Sens 18.8 H (0-14) pg/ml B-Natriuretic Peptide 325 H (0-100) pg/ml Diagnostic Findings Chest X-Ray 08/05/23 11:52 XR chest 1V not portable CLINICAL HISTORY: Chest pain, nonspecific TECHNIQUE: Single frontal radiograph of the chest was obtained. Comparison: Comparison is made to chest radiograph 08/04/2023 FINDINGS: No lines and tubes are seen. Cardiomegaly is noted. The aortic arch is calcified. Bilateral lower lung predominant airspace opacities are seen. Moderate left and small right pleural effusions are seen. IMPRESSION: 1. Moderate left and small right pleural effusions are increased from prior exam. 2. Bilateral lower lung predominant airspace opacities likely represent atelectasis with or without superimposed aspiration/pneumonia. ACT 112: Negative or not required by law. Electronically signed by: Hector Castro M.D. 08/05/2023 12:38 PM Chest CTA 08/05/23 14:04 CT angio chest PE protocol CLINICAL HISTORY: PE TECHNIQUE: Multidetector row helical CT of the chest was performed with angiographic protocol. Coronal and sagittal reformations were obtained. Coronal and sagittal MIPS were obtained from the axial data set and were submitted for review. Automated dose lowering techniques and/or adjustment according to patient size were utilized for this exam. CT DOSE: 802.08 mGy.cm Comparison: Comparison is made to chest radiograph 08/05/2023 FINDINGS: Lungs and pleura: Moderate bilateral pleural effusions are seen. Underlying atelectasis is noted there is a 7 mm nodule in the right lower lobe ( series 4 image 102). Heart and pericardium: Cardiomegaly is seen with biatrial enlargement. Vessels: No evidence of pulmonary embolism. Mediastinum and dionicio: Unremarkable. Chest wall and lower neck: Unremarkable. Abdomen: Unremarkable. Bones: Degenerative changes in the thoracic spine. IMPRESSION: 1. No evidence of pulmonary embolus. 2. Bilateral pleural effusions with underlying atelectasis. 3. 7 mm nodule in the right lower lobe According to Fleischner criteria, CT chest should be performed at 6-12 months. In high-risk patients, a 18-24 month follow-up is recommended, in low-risk patients, this 18-24 month follow-up CT is optional. ACT 112: Negative or not required by law. Electronically signed by: Hector Castro M.D. 08/05/2023 3:26 PM Resident Activity Tracking Resident Involvement: Resident Care Provided Care Provided: [facility]
[2023-08-06] MEDS: FUROSEMIDE 40 MG/4 ML VIAL IV SCH ×2 (08:24→17:02)
[2023-08-06] MEDS: LOSARTAN POTASSIUM 50 MG TAB PO SCH (10:04)
[2023-08-06] MEDS: METOPROLOL TARTRATE 50 MG TAB PO SCH ×2 (10:04→20:06)
[2023-08-06] MEDS: amLODIPine BESYLATE 5 MG TAB PO SCH (10:04)
--- NOTE | 2023-08-06 18:43 | XCELERA ---
[id number]
[2023-08-06] MEDS: ATORVASTATIN 40 MG TAB PO SCH (20:07)
[2023-08-07] MEDS ORDERED: POTASSIUM CHLORIDE CRTAB 20 MEQ TABCR PO ONE (00:30)
[2023-08-07] MEDS ORDERED: Heparin IV Adult Wt-Based Standard WITH Bolus Protocol IV STA (00:34)
--- NOTE | 2023-08-07 00:48 | Communication Note ---
Date of Service: August 07, 2023 12:27 received notification patient in new onset afib confirmed on EKG, HR 130's BP 179/72 on 2L O2 NC. Patient seen seated in bed states she feels slightly SOB after walking from bathroom which is unchanged from admit, denies any palpitations chest pain. Patient denies hstory heart disease or arrythmias. Ordered Metoprolol 5mg IVx3 doses, potassium repletion, checking mag level. Will start on heparin drip. Consider switching patient's metorpolol tartrate to metoprolol succinate for longer acting rate control.
[2023-08-07] MEDS: METOPROLOL TARTRATE 1 MG/ML VIAL IV PRN ×3 (00:57→08:35)
[2023-08-07] MEDS ORDERED: HEPARIN SOD (PORCINE) 1000 UNIT/ML IV ONE (01:00)
[2023-08-07] MEDS: HEPARIN SODIUM/DEXTROSE 25,000 UNITS/500 ML BAG IV SCH ×2 (01:25→20:10)
[2023-08-07 02:09] LABS: Basophils # (auto) 0.07 K/uL (0.00-0.20); Eosinophils # (auto) 0.04 K/uL (0.00-0.50); Eosinophils % (auto) 0.6 %; Hemoglobin 11.4 g/dl (12.0-16.0); Immature Granulocytes # (auto) 0.02 K/uL (0.01-0.20); Immature Granulocytes % (auto) 0.3 %; Lymphocytes % (auto) 6.9 %; Mean Corpuscular Hemoglobin 28.7 pg (25.0-34.0); Mean Corpuscular Hgb Conc 32.6 g/dL (32.0-36.0); Mean Corpuscular Volume 88.2 fL (80.0-100.0); Mean Platelet Volume 8.9 fL (9.4-12.4); Monocytes # (auto) 0.82 K/uL (0.11-0.59); Monocytes % (auto) 11.4 %; Neutrophils # (auto) 5.76 K/uL (1.40-6.50); Neutrophils % (auto) 79.8 %; Platelet Count 313 K/uL (130-400); RDW Coefficient of Variation 17.5 % (11.5-14.5); RDW Standard Deviation 55.3 fL (36.4-46.3); Red Blood Count 3.97 M/uL (4.20-5.40); White Blood Count 7.21 K/ul (4.8-10.8)
[2023-08-07 02:35] LABS: INR 1.1 (0.9-1.1); Partial Thromboplastin Time 29.1 Seconds (21.0-31.0); Prothrombin Time 11.9 Seconds (9.0-12.0)
[2023-08-07] MEDS: LEVOTHYROXINE SODIUM 150 MCG TABLET PO SCH (05:51)
--- NOTE | 2023-08-07 06:51 | Hospitalist Progress Note ---
Date of Service August 07, 2023 Assessment & Plan (1) 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): (2) CML (chronic myelocytic leukemia): (3) Right leg swelling: (4) Hypothyroidism in adult: (5) Hypercholesterolemia: (6) HTN (hypertension): (7) Atrial fibrillation, new onset: Plan Patient is a 68-year-old female with a past medical history of CML, hyperlipidemia, hypothyroidism, hypertension and no prior history of heart failure who presents with worsening shortness of breath and orthopnea. # Hypoxia/Moderate Bilateral Pleural effusion: Possible acute diastolic CHF exacerbation vs malignant effusion vs adverse drug reaction Pt exhibits signs of volume overload such as JVD, bilateral pleural effusions, and LE swelling. BNP 325; Echo shows normal EF with moderate TR - Repeat chest x-ray done today showing minimal change in bilateral pleural effusion, Started on Dasatinib for tx of CML last month - likely etiology since effusion out of proportion - Pulmonology consulted regarding thoracentesis, appreciated recs - will continue to diurese with Lasix 40mgs IV BID - daily standing weight. I and O - monitor renal function. #Atrial Fibrillation, new onset: - Patient went into A-fib overnight per review of telemetry monitoring with HR up to 160 - Continue Metoprolol Tartrate 50mg BID - Cardiology consulted, appreciate recs #CML Patient on Dasatinib, white count stable and WNL Dasatinib temporarily held pending cardiomyopathy evaluation #Right lower lung nodule - Noted on CT. - Needs outpatient follow up # HTN/HLD/Hypothyroid Patient on amlodipine/olmesartan at home, - substitute for formulary equivalent amlodipine and losartan Continue Metoprolol - continue statin - continue levothyroxine DVT PPx: SCDs, if no thoracentesis needed then start Lovenox Diet: Admission and Anticipated Discharge Date Admission Date: August 05, 2023 Supervising Physician Co-Signing Physician Notes Resident Physician Supervision Note: I independently interviewed and examined the patient and verified the rai history and physical, reviewed labs and image studies and agree with resident findings and care plan. Subjective Pattie is a 68-year-old female with a past medical history of CML, hyperlipidemia, hypothyroidism, hypertension and no prior history of heart failure who presents with worsening shortness of breath and orthopnea. Symptoms have increased over the last week. She does not have a home oxygen requirement. Patient evaluated at bedside this morning, found sitting up in bed, she states that she is feeling a bit less short of breath today and was able to sleep mostly flat last night. Pt flipped in A-fib overnight, denies prior diagnosis of A-fib. Denies chest pain, palpitations, or lightheadedness. Review of Systems Review of Systems: All systems reviewed & are unremarkable except as noted in HPI & below Physical Exam Constitutional: WD/WN, vitals as above comfortable Respiratory: good respiratory effort, mildly diminished lung sounds in lung bases bilaterally Cardiovascular: Irregular rhythm, no murmurs appreciated. LE edema R>L Gastrointestinal (Abdomen): bowel sounds intact, abdomen non-distended Skin: no rashes, warm and dry Psychiatric: A+Ox3, euthymic affect Results & Data Results & Data Vital Signs (Past 12 Hours) Vital Signs Temp Pulse Pulse Resp BP BP BP 08/07/23 03:00 37 C 110 H 18 151/88 H 08/07/23 01:43 126 H 153/105 H 08/07/23 01:22 141 H 151/97 H 08/07/23 01:12 130 H 151/97 H 08/07/23 00:57 135 H 08/06/23 22:00 77 08/06/23 22:35 37.0 C 100 H 18 179/72 H 08/06/23 21:57 08/06/23 19:56 37 C 95 H 18 197/82 H Pulse Ox O2 Del Method O2 Flow Rate 08/07/23 03:00 93 Nasal Cannula 2 08/07/23 01:43 08/07/23 01:22 08/07/23 01:12 08/07/23 00:57 08/06/23 22:00 08/06/23 22:35 96 Nasal Cannula 2 08/06/23 21:57 Nasal Cannula 2 08/06/23 19:56 93 Nasal Cannula Laboratory Results Abnormal lab results 08/07/23 08/07/23 08/07/23 Range/Units 01:16 07:37 07:37 RBC 3.97 L 4.17 L (4.20-5.40) M/uL Hgb 11.4 L (12.0-16.0) g/dl Hct 35.0 L 36.7 L (37.0-47.0) % RDW Std Deviation 55.3 H 56.5 H (36.4-46.3) fL RDW Coeff of Xuan 17.5 H 17.5 H (11.5-14.5) % MPV 8.9 L 9.1 L (9.4-12.4) fL Lymph # (Auto) 0.50 L (1.20-3.40) K/uL [place] # (Auto) 0.82 H (0.11-0.59) K/uL APTT (21.0-31.0) Seconds Glucose 101 H (70-99(Fasting)) mg/dl 08/07/23 Range/Units 08:46 RBC (4.20-5.40) M/uL Hgb (12.0-16.0) g/dl Hct (37.0-47.0) % RDW Std Deviation (36.4-46.3) fL RDW Coeff of Xuan (11.5-14.5) % MPV (9.4-12.4) fL Lymph # (Auto) (1.20-3.40) K/uL [place] # (Auto) (0.11-0.59) K/uL APTT 49.3 H* (21.0-31.0) Seconds Glucose (70-99(Fasting)) mg/dl Diagnostic Findings Chest CTA 08/05/23 14:04 CT angio chest PE protocol CLINICAL HISTORY: PE TECHNIQUE: Multidetector row helical CT of the chest was performed with angiographic protocol. Coronal and sagittal reformations were obtained. Coronal and sagittal MIPS were obtained from the axial data set and were submitted for review. Automated dose lowering techniques and/or adjustment according to patient size were utilized for this exam. CT DOSE: 802.08 mGy.cm Comparison: Comparison is made to chest radiograph 08/05/2023 FINDINGS: Lungs and pleura: Moderate bilateral pleural effusions are seen. Underlying atelectasis is noted there is a 7 mm nodule in the right lower lobe ( series 4 image 102). Heart and pericardium: Cardiomegaly is seen with biatrial enlargement. Vessels: No evidence of pulmonary embolism. Mediastinum and dionicio: Unremarkable. Chest wall and lower neck: Unremarkable. Abdomen: Unremarkable. Bones: Degenerative changes in the thoracic spine. IMPRESSION: 1. No evidence of pulmonary embolus. 2. Bilateral pleural effusions with underlying atelectasis. 3. 7 mm nodule in the right lower lobe According to Fleischner criteria, CT chest should be performed at 6-12 months. In high-risk patients, a 18-24 month follow-up is recommended, in low-risk patients, this 18-24 month follow-up CT is optional. ACT 112: Negative or not required by law. Electronically signed by: Hector Castro M.D. 08/05/2023 3:26 PM Chest X-Ray 08/07/23 06:54 XR chest 1V portable HISTORY: 68 years-old Female pleural effusion progression follow-up study in a patient with pleural effusions COMPARISON: CTA chest of same day TECHNIQUE: AP view of the chest FINDINGS: Cardiac silhouette is enlarged.. Pulmonary vascular congestion with interstitial coarsening. Moderate left and [id number] right pleural effusions are again noted and appear generally stable. Persistent bibasilar consolidation with pulmonary vascular congestion. Atherosclerosis of the aorta. No pneumothorax. Degenerative changes of the shoulders and spine. IMPRESSION: 1. Cardiomegaly with pulmonary edema. 2. Unchanged left greater than right pleural effusions with bibasilar consolidation. ACT 112: Negative or not required by law. The above report was generated using voice recognition software. It may contain grammatical, syntax or spelling errors. Electronically signed by: Zeus Walton M.D. 08/07/2023 7:24 AM Resident Activity Tracking Resident Involvement: Resident Care Provided Care Provided: Adult Hospital Medicine
--- NOTE | 2023-08-07 06:54 | Electrocardiogram Report ---
Test Reason : Blood Pressure : / mmHG Vent. Rate : 069 BPM Atrial Rate : 069 BPM P-R Int : 188 ms QRS Dur : 064 ms QT Int : 422 ms P-R-T Axes : 032 027 092 degrees QTc Int : 452 ms Normal sinus rhythm Low voltage QRS Septal infarct , age undetermined Abnormal ECG When compared with ECG of 18-JUL-2023 09:04, Septal infarct is now Present Confirmed by Franklin Velazquez ([id number]) on 08/07/2023 6:54:44 AM Referred By: REFERRED SELF Confirmed By:Franklin Velazquez
--- NOTE | 2023-08-07 07:25 | XRay Report ---
XR chest 1V portable HISTORY: 68 years-old Female pleural effusion progression follow-up study in a patient with pleural effusions COMPARISON: CTA chest of same day TECHNIQUE: AP view of the chest FINDINGS: Cardiac silhouette is enlarged.. Pulmonary vascular congestion with interstitial coarsening. Moderate left and hoyli-[id number] right pleural effusions are again noted and appear generally stable. Pers istent bibasilar consolidation with pulmonary vascular congestion. Atherosclerosis of the aorta. No p neumothorax. Degenerative changes of the shoulders and spine. IMPRESSION: 1. Cardiomegaly with pulmonary edema. 2. Unchanged left greater than right pleural effusions with bibasilar consolidation. ACT 112: Negative or not required by law. The above report was generated using voice recognition software. It may contain grammatical, syntax o r spelling errors. Electronically signed by: Zeus Walton M.D. 08/07/2023 7:24 AM
--- NOTE | 2023-08-07 08:09 | Electrocardiogram Report ---
Test Reason : Blood Pressure : / mmHG Vent. Rate : 133 BPM Atrial Rate : 127 BPM P-R Int : 000 ms QRS Dur : 080 ms QT Int : 322 ms P-R-T Axes : 000 024 168 degrees QTc Int : 479 ms Atrial fibrillation with rapid ventricular response Abnormal ECG When compared with ECG of 05-AUG-2023 12:01, Atrial fibrillation has replaced Sinus rhythm Vent. rate has increased BY 64 BPM T wave inversion now evident in Lateral leads Confirmed by Wesley Kurtz ([id number]) on 08/07/2023 8:09:16 AM Referred By: REFERRED SELF Confirmed By:Wesley Kurtz
[2023-08-07 08:11] LABS: Hematocrit (blood only) 36.7 % (37.0-47.0); Hemoglobin 12.2 g/dl (12.0-16.0); Mean Corpuscular Hemoglobin 29.3 pg (25.0-34.0); Mean Corpuscular Hgb Conc 33.2 g/dL (32.0-36.0); Mean Platelet Volume 9.1 fL (9.4-12.4); Platelet Count 331 K/uL (130-400); RDW Coefficient of Variation 17.5 % (11.5-14.5); RDW Standard Deviation 56.5 fL (36.4-46.3); Red Blood Count 4.17 M/uL (4.20-5.40); White Blood Count 6.31 K/ul (4.8-10.8)
[2023-08-07] MEDS: LOSARTAN POTASSIUM 50 MG TAB PO SCH (08:11)
[2023-08-07] MEDS: amLODIPine BESYLATE 5 MG TAB PO SCH (08:11)
[2023-08-07] MEDS: METOPROLOL TARTRATE 50 MG TAB PO SCH ×2 (08:11→20:10)
[2023-08-07 08:33] LABS: BUN Creatinine Ratio 13.5 (10-20); Creatinine Clr Calc Pharmacy 69.5 ml/min; Est GFR (African American) 77.2 ml/min; Est GFR (Non-African American) 66.6 ml/min; Magnesium 2.1 mg/dl (1.7-2.4); Potassium 3.7 mmol/L (3.5-5.1)
[2023-08-07] MEDS: FUROSEMIDE 40 MG/4 ML VIAL IV SCH ×2 (08:35→17:00)
[2023-08-07 10:04] LABS: Partial Thromboplastin Ratio 1.7
[2023-08-07 10:06] LABS: Partial Thromboplastin Time 49.3 Seconds (21.0-31.0)
[2023-08-07] MEDS ORDERED: POTASSIUM CHLORIDE CRTAB 20 MEQ TABCR PO STA (10:26)
[2023-08-07] MEDS ORDERED: BENZONATATE 100 MG CAPSULE PO PRN (12:23)
--- NOTE | 2023-08-07 13:40 | Pulmonary Consultation ---
Date of Consultation August 07, 2023 Assessment & Plan (1) Pleural effusion on left: (2) Pleural effusion on right: (3) Atrial fibrillation, new onset: (4) CML (chronic myelocytic leukemia): Plan 68-year-old female with a recently diagnosed history of CML who was placed on Dasatinib therapy and shortly after developed shortness of breath with pleural effusions. Pleural ultrasound reveals a small right pleural effusion and a moderate to large left pleural effusion. She notes that her symptoms have improved with Lasix, but she is still requiring oxygen and has not ambulated much today. We discussed a diagnostic and therapeutic thoracentesis. She understands the risk and benefits and is willing to proceed with a left thoracentesis. We will hold her heparin infusion starting at 4 AM and aim to do a diagnostic/therapeutic thoracentesis tomorrow. Atrial fibrillation management per primary team and cardiology. History of Present Illness Reason for Consultation: Pleural effusions Attending Physician: Josie Whitfield MD History of Present Illness 68-year-old female who presented to the hospital 08/05/2023 due to shortness of breath with a past medical history of CML, hyperlipidemia, hypothyroidism and hypertension. Her shortness of breath and orthopnea have worsened over the past 1 to 2 weeks. She underwent a CTA on admission due to concerns of a pulmonary embolism and was found to have bilateral effusions, left greater than right. I personally reviewed the imaging. I agree with the interpretation. She was diagnosed with CML earlier this year and has been on Dasatinib. She notes that she started Dasatinib a few weeks ago prior to when her shortness of breath started. She denies any fevers, chills or night sweats. No chest pain. Echo completed 08/06/2023 revealed a normal EF with moderate TR. Patient was found to have new onset atrial fibrillation overnight and was given metoprolol and started on a heparin infusion. CBC completed today reveals no significant anemia. No leukocytosis. Platelet count of 331,000. PTT at 8:46 AM was 49.3. Allergies Allergy/AdvReac Type Severity Reaction Status Date / Time imatinib Allergy Intermediate horrible Unverified 08/05/23 16:22 rash and itching all over No Known Drug Allergies Allergy Verified 07/26/23 10:08 Home Medications Medication Instructions Recorded Confirmed Type metoprolol tartrate 50 mg tablet 50 mg PO BID #180 tabs 01/25/23 08/05/23 Rx levothyroxine 150 mcg capsule 150 mcg PO DAILY #90 caps 04/02/23 08/05/23 Rx atorvastatin 40 mg tablet 40 mg PO HS #90 tabs 05/02/23 08/05/23 Rx amlodipine 5 mg-olmesartan 40 mg 1 tab PO DAILY #30 tabs 07/26/23 08/05/23 Rx tablet dasatinib 100 mg tablet 100 mg PO DAILY 07/26/23 08/05/23 History furosemide 20 mg tablet 20 mg PO DAILY 07/26/23 08/05/23 History Patient History Medical History (Updated 08/07/23 @ 13:38 by Ken Gutierrez MD) CML (chronic myelocytic leukemia) HTN (hypertension) Hypercholesterolemia Hyperglycemia Hypothyroidism in adult Pleural effusion on left Pleural effusion on right Surgical History H/O oral surgery History of hysteroscopy Family History Other Prostate cancer Denies family history of Ovarian cancer Breast cancer Lung cancer Colorectal cancer Social History Smoking Status: Never smoker Second Hand Exposure: No; Do You Dip or Chew Tobacco: No; Hx Alcohol Use: No Hx Substance Use: No Preferred Language: Albanian Communication Ability: Effective Business Project 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: No Beliefs That Will Affect Care: None marital status: Single Current Living Situation: Alone current occupational status: retired Other Information That Helps Us Care for You: No Feels Safe at Home: Yes Safety Concerns: Feels Safe At This Time Childhood Exposure to Second-Hand Smoke: No Diet: regular Dental Care, Regularly: Yes Physical Activity Frequency: Does not Exercise Seatbelt Use: always Sunscreen Use: Yes Assistive Devices: Glasses Review of Systems Review of Systems: All systems reviewed & are unremarkable except as noted in HPI & below Physical Exam Physical Exam: Constitutional: Patient appears to be of their stated age. Patient is in no apparent distress. Patient is well-developed. Eyes: Pupils are equal round and reactive to light. Conjunctivae are normal. Anicteric sclera. Ears nose, mouth and throat: Mallampati class 2. Normal posterior oropharynx. Uvula is midline. Neck: Trachea is midline. Visual inspection is normal. Respiratory: Bilateral crackles. No wheezes. No increased work of breathing. Cardiovascular: Tachycardic. Irregularly irregular. No murmurs. Gastrointestinal: Normal bowel sounds, soft, nontender and nondistended. No hepatosplenomegaly noted. Musculoskeletal: No cyanosis. Patient is able to move all extremities. Strength is 5 out of 5 in the upper and lower extremities. Skin: No rashes, warm dry and intact. Neurologic: No obvious focal neurological deficits seen. Psychiatric: Alert and oriented x3 with a euthymic affect. Results & Data Results & Data Vital Signs (Past 12 Hours) Vital Signs Temp Pulse Pulse Resp BP BP Pulse Ox 08/07/23 12:16 36.9 C 124 H 18 148/97 H 94 08/07/23 08:00 08/07/23 08:00 114 H 08/07/23 09:01 140 H 08/07/23 08:35 152 H 08/07/23 07:39 36.7 C 134 H 20 142/111 H 97 08/07/23 03:00 37 C 110 H 18 151/88 H 93 08/07/23 01:43 126 H 153/105 H O2 Del Method O2 Flow Rate 08/07/23 12:16 Nasal Cannula 2.0 08/07/23 08:00 Nasal Cannula 2 08/07/23 08:00 08/07/23 09:01 08/07/23 08:35 08/07/23 07:39 Nasal Cannula 2.0 08/07/23 03:00 Nasal Cannula 2 08/07/23 01:43 PG Care Time/CCT Total # of Minutes Spent Total Time Spent with Patient: Total time spent is greater than 50% in coordination of care (as documented) at patient's floor/unit and/or counseling patient: Coding Level of Care Code 22399 INT INP/OBS CARE 3/75MIN Diagnoses Pleural effusion on left J90 Pleural effusion on right J90 Atrial fibrillation, new onset I48.91 CML (chronic myelocytic leukemia) C92.10
--- NOTE | 2023-08-07 16:27 | Cardiology Consultation ---
Date of Consultation August 07, 2023 Assessment & Plan (1) Atrial fibrillation, new onset: (2) Pleural effusion, bilateral: (3) Hypervolemia: (4) CML (chronic myelocytic leukemia): (5) HTN (hypertension): Plan 68-year-old woman with CML treated with Dasatinib subsequently developed pleural effusions and new onset atrial fibrillation. She does appear mildly hypervolemic and will benefit from continued diuresis with IV furosemide, however pleural effusions are out of proportion to the degree of volume overload (neck veins minimally elevated, no peripheral edema, no pulmonary edema on chest CT), suggesting that her pleural effusions are more of a serositis than sequelae to congestive heart failure. As such, need to consider the possibly Dasatinib could be a contributing factor and close monitoring/dose adjustment/alternative agent may need to be considered. Echocardiogram shows normal systolic function and no major valvular disease, unlikely that she suddenly developed severe diastolic dysfunction, again suggesting her volume retention is not predominantly heart failure. No obvious precipitants for her atrial fibrillation other than hyperadrenergic state of volume overload. Recommend increasing metoprolol to tartrate to 50 mg every 8 hours while inpatient, could consolidate to metoprolol succinate upon discharge. She was on heparin but this is being held for thoracentesis planned for tomorrow, no urgency to anticoagulation since she is back in sinus rhythm, but upon discharge would recommend apixaban [address] Elam will be rounding tomorrow and could check on the patient then, I could see her as an outpatient for follow-up. History of Present Illness Reason for Consultation: New onset atrial fibrillation Requesting Physician: Josie Whitfield MD Attending Physician: Josie Whitfield MD History of Present Illness 68-year-old woman with history of chronic myelogenous leukemia, hypertension, no prior history of congestive heart failure who presented with dyspnea on exertion and orthopnea and was found to have bilateral pleural effusions on admission 08/05/2023, subsequently she developed atrial fibrillation with rapid ventricular response. Of note, there is a temporal relationship between beginning Dasatinib and onset of dyspnea over the past month. She was on chronic hydrochlorothiazide for hypertension, this was changed to furosemide when she developed dyspnea and her orthopnea improved. Chest CT on admission showed no pulmonary embolism but did show bilateral pleural effusions with underlying atelectasis but no pulmonary edema. Echocardiogram this admission showed normal LV systolic function with mild LVH and no wall motion abnormalities. Moderate tricuspid regurgitation with no mention of pulmonary artery systolic pressure. She denies chest pain, subjective palpitations, presyncope, or syncope. ECG on admission showed sinus rhythm with poor R wave progression and low voltage, otherwise unremarkable. Rate was 69 bpm. She developed atrial fibrillation overnight with a rate of [address]-T wave abnormalities, shortly before I saw her in consultation this afternoon she converted back to sinus rhythm at 80 bpm. At the time of my evaluation, she was comfortable and had no symptoms at rest. Allergies Allergy/AdvReac Type Severity Reaction Status Date / Time imatinib Allergy Intermediate horrible Unverified 08/05/23 16:22 rash and itching all over No Known Drug Allergies Allergy Verified 07/26/23 10:08 Home Medications Medication Instructions Recorded Confirmed Type metoprolol tartrate 50 mg tablet 50 mg PO BID #180 tabs 01/25/23 08/05/23 Rx levothyroxine 150 mcg capsule 150 mcg PO DAILY #90 caps 04/02/23 08/05/23 Rx atorvastatin 40 mg tablet 40 mg PO HS #90 tabs 05/02/23 08/05/23 Rx amlodipine 5 mg-olmesartan 40 mg 1 tab PO DAILY #30 tabs 07/26/23 08/05/23 Rx tablet dasatinib 100 mg tablet 100 mg PO DAILY 07/26/23 08/05/23 History furosemide 20 mg tablet 20 mg PO DAILY 07/26/23 08/05/23 History Patient History Medical History Carpal tunnel syndrome CML (chronic myelocytic leukemia) Diverticulosis Herpes zoster HTN (hypertension) Hypercholesterolemia Hyperglycemia Hyperprolactinemia Hypothyroidism in adult Pleural effusion on left Pleural effusion on right Superficial thrombophlebitis Surgical History H/O oral surgery History of hysteroscopy Family History Other Prostate cancer Denies family history of Ovarian cancer Breast cancer Lung cancer Colorectal cancer Social History Smoking Status: Never smoker Second Hand Exposure: No; Do You Dip or Chew Tobacco: No; Hx Alcohol Use: No Hx Substance Use: No Preferred Language: Sami Communication Ability: Effective Tape Controlled Machine Stitcher Required: No Beliefs That Will Affect Care: None marital status: Single Current Living Situation: Alone current occupational status: retired Other Information That Helps Us Care for You: No Feels Safe at Home: Yes Safety Concerns: Feels Safe At This Time Childhood Exposure to Second-Hand Smoke: No Diet: regular Dental Care, Regularly: Yes Physical Activity Frequency: Does not Exercise Seatbelt Use: always Sunscreen Use: Yes Assistive Devices: Glasses Physical Exam Physical Exam: No distress. BP mildly hypertensive (148/97 mmHg). Pulse 80 bpm and regular. Skin: no ecchymoses or generalized lesions. HEENT: unremarkable. Neck: JVP one third of the way to the angle of the jaw at 90 degrees, transmitted murmur to carotids. Lungs: Moderately decreased breath sounds, dullness at both bases, few basilar crackles, no wheezing or secondary muscle use. Cardiac: regular rhythm, normal S1-2, 2/6 systolic ejection murmur right upper sternal border rating to the carotids, 3/6 apical holosystolic murmur, no diastolic murmur. Abdomen: benign. Extremities: no edema, pulses intact. Neurologic: normal affect and conversation, nonfocal. Results & Data Laboratory Results Troponin 21.3 and 18.8. BNP 325 (no baseline). Normal CBC. Normal electrolytes, BUN 12, creatinine 0.89. Diagnostic Findings ECGs as noted in HPI. Chest x-ray today showed cardiomegaly with pulmonary edema and left greater than right pleural effusions with bibasilar consolidation. Chest CT and echocardiogram as noted in HPI. PG Care Time/CCT Total # of Minutes Spent Total Time Spent with Patient: Total time spent is greater than 50% in coordination of care (as documented) at patient's floor/unit and/or counseling patient: Coding Level of Care Code 99654 INT INP/OBS CARE 375MIN Diagnoses Atrial fibrillation, new onset I48.91 Pleural effusion, bilateral J90 Hypervolemia E87.70 CML (chronic myelocytic leukemia) C92.10 HTN (hypertension) I10
[2023-08-07] MEDS: ATORVASTATIN 40 MG TAB PO SCH (20:10)
[2023-08-08] MEDS: LEVOTHYROXINE SODIUM 150 MCG TABLET PO SCH (05:51)
[2023-08-08 07:12] LABS: BUN Creatinine Ratio 16.5 (10-20); Calcium 8.5 mg/dl (8.6-10.3); Creatinine Clr Calc Pharmacy 67.6 ml/min; Est GFR (African American) 75.1 ml/min; Est GFR (Non-African American) 64.8 ml/min; Potassium 3.6 mmol/L (3.5-5.1)
--- NOTE | 2023-08-08 07:20 | Hospitalist Progress Note ---
Date of Service August 08, 2023 Assessment & Plan (1) 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): (2) CML (chronic myelocytic leukemia): (3) Right leg swelling: (4) Hypothyroidism in adult: (5) Hypercholesterolemia: (6) HTN (hypertension): (7) Atrial fibrillation, new onset: Plan Patient is a 68-year-old female with a past medical history of CML, hyperlipidemia, hypothyroidism, hypertension and no prior history of heart failure who presents with worsening shortness of breath and orthopnea. # Hypoxia/Moderate Bilateral Pleural effusion: Possible acute diastolic CHF exacerbation vs malignant effusion vs adverse drug reaction Pt with signs of volume overload such as JVD, bilateral pleural effusions, and LE swelling, improved apart from pleural effusions. BNP 325; Echo shows normal EF with moderate TR - Repeat chest x-ray showing minimal change in bilateral pleural effusion, Started on Dasatinib for tx of CML last month - likely etiology since effusion out of proportion - Pulmonology consulted regarding thoracentesis, patient to have thoracentesis done today - will continue to diurese with Lasix 40mgs IV BID - daily standing weight. I and O - monitor renal function. - Begin weaning off of supplemental oxygen #Atrial Fibrillation, new onset: - Patient in NSR overnight with heart rates WNL - Continue Metoprolol Tartrate 50mg BID - Cardiology consulted, appreciate recs #CML Patient on Dasatinib, white count stable and WNL Dasatinib temporarily held pending cardiomyopathy evaluation #Right lower lung nodule - Noted on CT. - Needs outpatient follow up # HTN/HLD/Hypothyroid Patient on amlodipine/olmesartan at home, - substitute for formulary equivalent amlodipine and losartan Continue Metoprolol - continue statin - continue levothyroxine DVT PPx: SCDs, Heparin held in advance of thoracentesis Diet: Admission and Anticipated Discharge Date Admission Date: August 05, 2023 Supervising Physician Co-Signing Physician Notes Resident Physician Supervision Note: I independently interviewed and examined the patient and verified the rai history and physical, reviewed labs and image studies and agree with resident findings and care plan. Subjective Pattie is a 68-year-old female with a past medical history of CML, hyperlipidemia, hypothyroidism, hypertension and no prior history of heart failure who presents with worsening shortness of breath and orthopnea. Symptoms have increased over the last week. She does not have a home oxygen requirement. Patient evaluated at bedside this morning, found sitting up in bed, she states that she is not feeling short of breath at this time, is still using supplemental oxygen but is unsure if she still needs it. Patient in normal sinus rhythm overnight per telemetry. Denies chest pain, palpitations, or lightheadedness. Review of Systems Review of Systems: All systems reviewed & are unremarkable except as noted in HPI & below Physical Exam Constitutional: WD/WN, vitals as above comfortable Respiratory: Good respiratory effort, mildly diminished breath sounds in lung bases bilaterally Cardiovascular: RRR, no murmurs appreciated. LE mild non-pitting edema bilaterally. Skin: no rashes, warm and dry Psychiatric: A+Ox3, euthymic affect Results & Data Results & Data Vital Signs (Past 12 Hours) Vital Signs Temp Pulse Pulse Resp BP Pulse Ox O2 Del Method 08/08/23 02:40 36.9 C 73 20 152/68 H 91 Nasal Cannula 08/07/23 21:58 73 08/07/23 23:10 36.8 C 69 20 147/80 H 96 Nasal Cannula 08/07/23 22:26 Nasal Cannula 08/07/23 19:41 36.7 C 93 H 18 140/64 93 Nasal Cannula O2 Flow Rate 08/08/23 02:40 08/07/23 21:58 08/07/23 23:10 08/07/23 22:26 2 08/07/23 19:41 Laboratory Results Abnormal lab results 08/08/23 Range/Units 06:36 Calcium 8.5 L (8.6-10.3) mg/dl Resident Activity Tracking Resident Involvement: Resident Care Provided Care Provided: Adult Hospital Medicine
[2023-08-08] MEDS: FUROSEMIDE 40 MG/4 ML VIAL IV SCH ×2 (08:56→18:10)
[2023-08-08] MEDS: amLODIPine BESYLATE 5 MG TAB PO SCH (08:56)
[2023-08-08] MEDS: METOPROLOL TARTRATE 50 MG TAB PO SCH ×2 (08:58→19:47)
[2023-08-08] MEDS: LOSARTAN POTASSIUM 50 MG TAB PO SCH (08:58)
--- NOTE | 2023-08-08 14:48 | Procedure Note ---
Procedure Note Date of Service August 08, 2023 Note Procedure: diagnostic and therapeutic ultrasound-guided catheter left thoracentesis Recycling Specialist: Dr. Ken Gutierrez Indication: Pleural effusion Consent: Signed by patient and verified with timeout prior to procedure Anesthesia: 8 mL's of 1% lidocaine without epinephrine given locally Procedure: Consent was verified and timeout performed. Appropriate imaging studies were reviewed prior to the procedure. Patient was placed in a seated and limited thoracic ultrasound was performed of the left chest. See separate imaging. The site appropriate for thoracentesis was selected. The skin was prepped and draped in normal sterile fashion. Lidocaine was used for local analgesia. Fluid was aspirated via the finder needle. A small skin marisela was made with the scalpel and the catheter over the needle apparatus was advanced over the rib into the pleural space. Using the syringe one-way valve system, a total of 800 mL's of serous fluid was removed. Procedure was terminated due to lack of flow. The catheter was removed and observed to be intact. A sterile dressing was applied. Post procedure chest x-ray was ordered. Fluid was sent for LDH, total protein, cell count, glucose, pH, cytology, AFB cultures, gram stain and culture and fungal cultures. The patient tolerated the procedure well without obvious complication. Images were saved to PACS. Coding CPT Codes Pulmonary/Thoracic - Pulmonary and Thoracic: 69161 Thoracentesis w imaging ([id number]) [facility] [place] Procedure Codes (Charges) Pulmonary/Thoracic Procedure 1: Pulmonary and Thoracic: 22269 Thoracentesis w imaging
--- NOTE | 2023-08-08 14:53 | Pulmonology Progress Note ---
Date of Service August 08, 2023 Assessment & Plan (1) Pleural effusion on left: (2) Pleural effusion on right: (3) Atrial fibrillation, new onset: (4) CML (chronic myelocytic leukemia): Plan 68-year-old female with a recently diagnosed history of CML who was placed on Dasatinib therapy and shortly after developed shortness of breath with pleural effusions. Thoracentesis performed by me today. I was able to evacuate 800 mL of serous appearing fluid in the left pleural space. The pleural ultrasound compared to yesterday did demonstrate decreased pleural effusions compared to yesterday suggesting that there is certainly a CHF component to this. The right pleural effusion was minimal. However, Dasatinib related pleural effusion remains very high in the differential and is ultimately a diagnosis of exclusion. A lymphocytic predominant exudate would suggest the possibility that this is more likely Dasatinib related. Cytology from the pleural fluid was also sent to rule out malignancy related effusion. Atrial fibrillation management per primary team and cardiology. Heparin can be restarted in the next 2 to 3 hours as long as there is no clear evidence of bleeding from the incision site and her hemodynamics remained stable. Thank you for allowing me to participate in care of the patient. I will continue to follow along with you. Admission and Anticipated Discharge Date Admission Date: August 05, 2023 Subjective Patient seen and examined. Sister at bedside. Patient denies any significant shortness of breath, but continues to require supplemental oxygen to maintain saturations in the mid 90s. Denies chest pain. No cough. Review of Systems Review of Systems: All systems reviewed & are unremarkable except as noted in HPI & below Physical Exam Physical Exam: Constitutional: Patient appears to be of their stated age. Patient is in no apparent distress. Patient is well-developed. Eyes: Pupils are equal round and reactive to light. Conjunctivae are normal. Anicteric sclera. Ears nose, mouth and throat: Mallampati class 2. Normal posterior oropharynx. Uvula is midline. Neck: Trachea is midline. Visual inspection is normal. Respiratory: Bilateral crackles. No wheezes. No increased work of breathing. Cardiovascular: Tachycardic. Irregularly irregular. No murmurs. Gastrointestinal: Normal bowel sounds, soft, nontender and nondistended. No hepatosplenomegaly noted. Musculoskeletal: No cyanosis. Patient is able to move all extremities. Strength is 5 out of 5 in the upper and lower extremities. Skin: No rashes, warm dry and intact. Neurologic: No obvious focal neurological deficits seen. Psychiatric: Alert and oriented x3 with a euthymic affect. Results & Data Results & Data Vital Signs (Past 12 Hours) Vital Signs Temp Pulse Resp BP BP Pulse Ox O2 Del Method 08/08/23 12:19 37.0 C 76 18 136/59 L 96 Nasal Cannula 08/08/23 09:20 Nasal Cannula 08/08/23 07:33 36.9 C 82 18 165/77 H 93 Nasal Cannula O2 Flow Rate 08/08/23 12:19 2.0 08/08/23 09:20 2 08/08/23 07:33 2.0 PG Care Time/CCT Total # of Minutes Spent Total Time Spent with Patient: Total time spent is greater than 50% in coordination of care (as documented) at patient's floor/unit and/or counseling patient: Coding Level of Care Code 34961 SUB INP/OBS CARE 3/50MIN Diagnoses Pleural effusion on left J90 Pleural effusion on right J90 Atrial fibrillation, new onset I48.91 CML (chronic myelocytic leukemia) C92.10
--- NOTE | 2023-08-08 15:21 | Cardiology Progress Note ---
Date of Service August 08, 2023 Assessment & Plan (1) Atrial fibrillation, new onset: (2) Pleural effusion, bilateral: (3) Hypervolemia: (4) CML (chronic myelocytic leukemia): (5) HTN (hypertension): Plan 1. Paroxysmal atrial fibrillation: Although her arrhythmia could be due to her current presentation it is just is possible that she has paroxysmal atrial fibrillation at other times since it is a common arrhythmia in her age group. She was in it for 14 hours and I think should be on long-term anticoagulation. She was on heparin which was held for her thoracentesis, when safe I would institute Eliquis 5 mg twice a day for long-term therapy. I would continue with beta-blockade which has not caused significant bradycardia either during atrial fibrillation or sinus rhythm. 2. Pleural effusions, status post thoracentesis, awaiting results. 3. Hypervolemia: Clinically she does not seem to be significantly fluid overloaded. 5. Hypertension: Her blood pressure has run somewhat high in general, now on metoprolol 50 mg twice a day which I believe was her outpatient dose. I would recommend increasing this as noted in Dr. Kurtz's consult, this would help blood pressure and heart rate during atrial fibrillation. Admission and Anticipated Discharge Date Admission Date: August 05, 2023 Subjective Chart reviewed, telemetry reviewed. Patient examined with the family in the room. The rhythm remained atrial fibrillation until around 2:00 on the afternoon of August 07, 2023 and she has been in sinus rhythm since. The heart rate is in the 80s but was faster during atrial fibrillation. She was unaware of the rhythm and was unaware of the conversion back to normal rhythm. Currently she feels well and had her thoracentesis today and is awaiting the results. Physical Exam Physical Exam: Constitutional: Alert, cooperative and in no distress. Pulmonary: Clear to auscultation bilaterally with slight basilar crackles. Cardiac: Regular rhythm with no murmur, gallop or rub. Abdomen: Soft, nontender with normal bowel sounds. Extremities: No edema. Skin: No rash, ecchymoses or petechiae. Results & Data Vital Signs (Past 12 Hours) Vital Signs Temp Pulse Pulse Resp BP BP Pulse Ox 08/08/23 15:00 81 18 126/82 93 08/08/23 08:00 78 08/08/23 12:19 37.0 C 76 18 136/59 L 96 08/08/23 09:20 08/08/23 07:33 36.9 C 82 18 165/77 H 93 O2 Del Method O2 Flow Rate 08/08/23 15:00 Nasal Cannula 1 08/08/23 08:00 08/08/23 12:19 Nasal Cannula 2.0 08/08/23 09:20 Nasal Cannula 2 08/08/23 07:33 Nasal Cannula 2.0 Laboratory Results Comprehensive Metabolic Panel 08/08/23 Range/Units 06:36 Sodium 137 (136-145) mmol/L Potassium 3.6 (3.5-5.1) mmol/L Chloride 101 (98-107) mmol/L Carbon Dioxide 29 (21-32) mmol/L BUN 15 (6-23) mg/dl Creatinine 0.91 (0.6-1.2) mg/dl Glucose 88 (70-99(Fasting)) mg/dl Calcium 8.5 L (8.6-10.3) mg/dl Intake and Output 08/08/23 08/08/23 08/08/23 06:59 14:59 22:59 Intake Total 800 / 1967.500 640 / 640 Output Total 250 / 1450 1400 / 1400 Balance 550 / 517.500 -760 / -760 Intake: IV 500 / 987.500 Heparin Sodium/Dextrose 25,000 500 / 987.500 units In 500 ml @ 1,300 UNITS/ HR 26 mls/hr IV .[id number] PENDING SALE TO [facility] Rx #:[id number] Oral 300 / 980 640 / 640 Output: Urine 250 / 1450 1400 / 1400 Other: Weight 95.4 kg Weight Measurement Method Standing Scale Diagnostic Findings Telemetry: Atrial fibrillation until around 1400 on August 07, 2023 then sponta neous conversion to sinus rhythm with a heart rate in the 80s. PG Care Time/CCT Total # of Minutes Spent Total Time Spent with Patient: Total time spent is greater than 50% in coordination of care (as documented) at patient's floor/unit and/or counseling patient: Coding Level of Care Code 45795 SUB INP/OBS CARE 2/35MIN Diagnoses Atrial fibrillation, new onset I48.91 Pleural effusion, bilateral J90 Hypervolemia E87.70 CML (chronic myelocytic leukemia) C92.10 HTN (hypertension) I10
--- NOTE | 2023-08-08 15:29 | XRay Report ---
SINGLE VIEW CHEST CLINICAL HISTORY: Status post left thoracentesis. FINDINGS: An AP, portable, upright chest radiograph is compared to study dated 08/07/2023 and correla katie with chest CT dated 08/05/2023. The heart is enlarged noting atherosclerotic calcification of the thoracic aorta. There is mild pulmonary vascular congestion. There are small right and trace left pl eural effusions. The left pleural effusion is decreased in size from previous. Dependent airspace opa cities likely represent atelectasis. No pneumothorax is seen. The skeletal structures are osteopenic. The bony thorax is grossly intact. IMPRESSION: 1. No pneumothorax is seen post thoracentesis. 2. Small right and trace left pleural effusions with dependent opacities. The left pleural effusion h as decreased from previous. 3. Cardiomegaly with mild pulmonary vascular congestion. ACT 112: Negative or not required by law. Electronically signed by: Markie Maldonado M.D. 08/08/2023 3:26 PM
[2023-08-08 17:51] LABS: Appearance Pleural Fluid Slightly Hazy; Color Pleural Fluid Yellow; Lymphocytes, Fluid 24 %; Mono,Macrophage,Mesothelial 73 %; Neutrophils, Fluid 3 %; RBC Pleural Fluid Auto 11000 /uL; Source Pleural Fluid Left Lung; WBC Pleural Fluid Auto 2173 /uL
[2023-08-08] MEDS ORDERED: Heparin IV Adult Wt-Based Standard *NO* Bolus Protocol IV SCH (17:59)
[2023-08-08] MEDS: HEPARIN SODIUM/DEXTROSE 25,000 UNITS/500 ML BAG IV SCH (18:28)
[2023-08-08 18:47] LABS: Basophils # (auto) 0.03 K/uL (0.00-0.20); Basophils % (auto) 0.3 %; Eosinophils # (auto) 0.06 K/uL (0.00-0.50); Eosinophils % (auto) 0.7 %; Hematocrit (blood only) 37.6 % (37.0-47.0); Hemoglobin 12.2 g/dl (12.0-16.0); Immature Granulocytes # (auto) 0.02 K/uL (0.01-0.20); Immature Granulocytes % (auto) 0.2 %; Lymphocytes # (auto) 0.44 K/uL (1.20-3.40); Mean Corpuscular Hemoglobin 28.6 pg (25.0-34.0); Mean Corpuscular Hgb Conc 32.4 g/dL (32.0-36.0); Mean Corpuscular Volume 88.1 fL (80.0-100.0); Mean Platelet Volume 9.2 fL (9.4-12.4); Monocytes # (auto) 0.66 K/uL (0.11-0.59); Monocytes % (auto) 7.4 %; Neutrophils # (auto) 7.65 K/uL (1.40-6.50); Neutrophils % (auto) 86.4 %; Platelet Count 302 K/uL (130-400); RDW Coefficient of Variation 17.3 % (11.5-14.5); RDW Standard Deviation 55.3 fL (36.4-46.3); Red Blood Count 4.27 M/uL (4.20-5.40); White Blood Count 8.86 K/ul (4.8-10.8)
[2023-08-08 19:34] LABS: INR 1.1 (0.9-1.1); Partial Thromboplastin Time 29.3 Seconds (21.0-31.0); Prothrombin Time 11.7 Seconds (9.0-12.0)
[2023-08-08] MEDS: ATORVASTATIN 40 MG TAB PO SCH (19:47)
[2023-08-09 01:24] LABS: Partial Thromboplastin Ratio 1.8
[2023-08-09 01:27] LABS: Partial Thromboplastin Time 50.3 Seconds (21.0-31.0)
[2023-08-09] MEDS: LEVOTHYROXINE SODIUM 150 MCG TABLET PO SCH (06:02)
--- NOTE | 2023-08-09 06:44 | Hospitalist Progress Note ---
Date of Service August 09, 2023 Assessment & Plan (1) 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): (2) CML (chronic myelocytic leukemia): (3) Right leg swelling: (4) Hypothyroidism in adult: (5) Hypercholesterolemia: (6) HTN (hypertension): (7) Atrial fibrillation, new onset: Plan Patient is a 68-year-old female with a past medical history of CML, hyperlipidemia, hypothyroidism, hypertension and no prior history of heart failure who presents with worsening shortness of breath and orthopnea. # Hypoxia/Moderate Bilateral Pleural effusion: - Started on Dasatinib for tx of CML last month - likely etiology since effusion out of proportion - Pulmonology consulted, patient s/p thoracentesis - pleural fluid LDH 191, pleural fluid protein 4.0 - serum LDH 231, serum total protein 6.9 - Pleural: serum LDH ratio > .6, protein ratio >.5, suggestive of exudative effusion and consistent with documented findings of pleural effusion secondary to dasatinib - Continue weaning off of supplemental oxygen #Acute diastolic heart failure Pt with signs of volume overload such as JVD, bilateral pleural effusions, and LE swelling, significantly improved apart from pleural effusions. BNP 325; Echo shows normal EF with moderate TR - Given improvement in LE edema and minimal JVD, will reduce Lasix 40mg IV daily - daily standing weight. I and O - monitor renal function. #Atrial Fibrillation, new onset: - Patient mostly NSR overnight, several overnight brief episodes of Afib, extended period of A-fib during day - Increase Metoprolol Tartrate to 50mg TID, plan to discharge on Metoprolol Succinate 75mg BID as recommended by cardiology - Cardiology consulted, appreciate recs - On Heparin for anticoagulation, plan to switch to Eliquis at discharge #CML Patient on Dasatinib, white count stable and WNL Dasatinib temporarily held pending cardiomyopathy evaluation #Right lower lung nodule - Noted on CT. - Needs outpatient follow up # HTN/HLD/Hypothyroid Patient on amlodipine/olmesartan at home, - substitute for formulary equivalent amlodipine and losartan Continue Metoprolol - continue statin - continue levothyroxine DVT PPx: Heparin Diet: Admission and Anticipated Discharge Date Admission Date: August 05, 2023 Supervising Physician Co-Signing Physician Notes Resident Physician Supervision Note: I independently interviewed and examined the patient and verified the rai history and physical, reviewed labs and image studies and agree with resident findings and care plan. Subjective Pattie is a 68-year-old female with a past medical history of CML, hyperlipidemia, hypothyroidism, hypertension and no prior history of heart failure who presents with worsening shortness of breath and orthopnea. Symptoms have increased over the last week. She does not have a home oxygen requirement. Patient evaluated at bedside this morning, found sitting up in bed in notable distress. Patient subsequently vomited repeatedly, notes that she began feeling ill shortly after IV potassium administration was started. Review of telemetry shows patient went into A-fib with RVR around the same time. Patient quickly felt better after vomiting and with discontinuation of IV potassium. Denies chest pain, palpitations, or lightheadedness. Review of Systems Review of Systems: All systems reviewed & are unremarkable except as noted in HPI & below Physical Exam Constitutional: WD/WN, vitals as above comfortable Respiratory: Good respiratory effort, mildly diminished breath sounds in lung bases bilate rally Cardiovascular: Irregular rhythm, tachycardic. LE edema largely resolved. Skin: no rashes, warm and dry Psychiatric: A+Ox3, euthymic affect Results & Data Results & Data Vital Signs (Past 12 Hours) Vital Signs Temp Pulse Pulse Resp BP BP Pulse Ox 08/08/23 22:00 72 08/09/23 02:52 36.8 C 71 20 128/61 98 08/08/23 21:00 08/08/23 22:47 36.9 C 71 24 121/58 L 94 08/08/23 19:51 37.7 C H 102 H 24 144/64 H 94 O2 Del Method O2 Flow Rate 08/08/23 22:00 08/09/23 02:52 Nasal Cannula 08/08/23 21:00 Nasal Cannula 1 08/08/23 22:47 Nasal Cannula 08/08/23 19:51 Nasal Cannula Laboratory Results Abnormal lab results 08/08/23 08/08/23 08/09/23 Range/Units 14:41 18:28 00:13 RDW Std Deviation 55.3 H (36.4-46.3) fL RDW Coeff of Xuan 17.3 H (11.5-14.5) % MPV 9.2 L (9.4-12.4) fL Neut # (Auto) 7.65 H (1.40-6.50) K/uL Lymph # (Auto) 0.44 L (1.20-3.40) K/uL [place] # (Auto) 0.66 H (0.11-0.59) K/uL APTT 50.3 H* (21.0-31.0) Seconds Potassium (3.5-5.1) mmol/L Pleural pH 7.56 H (7.3-7.4) 08/09/23 08/09/23 Range/Units 07:08 07:08 RDW Std Deviation (36.4-46.3) fL RDW Coeff of Xuan (11.5-14.5) % MPV (9.4-12.4) fL Neut # (Auto) (1.40-6.50) K/uL Lymph # (Auto) (1.20-3.40) K/uL [place] # (Auto) (0.11-0.59) K/uL APTT 60.5 H* (21.0-31.0) Seconds Potassium 3.2 L (3.5-5.1) mmol/L Pleural pH (7.3-7.4) Resident Activity Tracking Resident Involvement: Resident Care Provided Care Provided: Adult [facility] Medicine
[2023-08-09 08:06] LABS: BUN Creatinine Ratio 19.1 (10-20); Calcium 8.6 mg/dl (8.6-10.3); Creatinine Clr Calc Pharmacy 68.1 ml/min; Est GFR (African American) 77.2 ml/min; Est GFR (Non-African American) 66.6 ml/min; Magnesium 1.9 mg/dl (1.7-2.4); Potassium 3.2 mmol/L (3.5-5.1)
[2023-08-09 08:42] LABS: Partial Thromboplastin Ratio 2.1
[2023-08-09 08:46] LABS: Partial Thromboplastin Time 60.5 Seconds (21.0-31.0)
[2023-08-09] MEDS: LOSARTAN POTASSIUM 50 MG TAB PO SCH (08:46)
[2023-08-09] MEDS: amLODIPine BESYLATE 5 MG TAB PO SCH (08:46)
[2023-08-09] MEDS: METOPROLOL TARTRATE 50 MG TAB PO SCH ×2 (08:46→21:04)
[2023-08-09] MEDS: FUROSEMIDE 40 MG/4 ML VIAL IV SCH (08:52)
[2023-08-09] MEDS: POTASSIUM CHLORIDE / WTR 10 MEQ/100 ML PLCT IV SCH ×2 (09:28→10:51)
[2023-08-09] MEDS: POTASSIUM CHLORIDE CRTAB 20 MEQ TABCR PO SCH ×4 (11:02→17:04)
--- NOTE | 2023-08-09 11:19 | Cardiology Progress Note ---
Date of Service August 09, 2023 Assessment & Plan (1) Atrial fibrillation, new onset: (2) Pleural effusion, bilateral: (3) Hypervolemia: (4) CML (chronic myelocytic leukemia): (5) HTN (hypertension): Plan Increase metoprolol as tolerated/necessary to achieve ventricular rate in the 100 bpm or less range. Even if she returns to sinus, recommend higher beta- mike dose than she was taking at home (metoprolol tartrate 50 mg twice daily) to prevent recurrent/manage tachycardia if recurs. Switch to oral potassium supplementation given her adverse reaction to IV infusion. She is only mildly hypervolemic, decrease rate of diuresis to furosemide 40 mg IV once daily to decrease rate of potassium loss. Pleural effusions most likely secondary to Dasatinib, need to factor this in to decisions regarding future CML management. Could switch from heparin to apixaban 5 mg twice daily. Admission and Anticipated Discharge Date Admission Date: August 05, 2023 Subjective Uneventful night, she was feeling well until just a few minutes ago when she noted burning in the arm she was receiving IV potassium chloride followed by an episode of nausea with vomiting. After vomiting she felt better and had no somatic complaints. She denies any chest pain, dyspnea, or subjective palpitations. Telemetry showed sinus rhythm in the 70-90 bpm range with very infrequent/transient atrial fibrillation (one 5-second episode). However, at the time of my exam this morning (after vomiting) she did again develop atrial fibrillation with rapid ventricular rate (130 bpm). Physical Exam Physical Exam: No distress. BP normotensive. Pulse 130 bpm and irregular. Skin: no ecchymoses or generalized lesions. HEENT: unremarkable. Neck: JVP one quarter of the way to the angle of the jaw at 90 degrees, transmitted murmur to carotids. Lungs: Moderately decreased breath sounds, dullness at both bases, few basilar crackles, no wheezing or secondary muscle use. Cardiac: irregular/tachycardic rhythm, normal S1-2, 2/6 systolic ejection murmur right upper sternal border rating to the carotids, 3/6 apical holosystolic murmur, no diastolic murmur. Abdomen: Nontender, nondistended. Extremities: no edema, pulses intact. Neurologic: normal affect and conversation, nonfocal. Results & Data Vital Signs (Past 12 Hours) Vital Signs Temp Pulse Pulse Resp BP BP Pulse Ox 08/09/23 09:41 08/09/23 08:37 98.6 F 84 18 138/62 96 08/09/23 07:00 75 08/09/23 02:52 98.2 F 71 20 128/61 98 O2 Del Method 08/09/23 09:41 Room Air 08/09/23 08:37 Room Air 08/09/23 07:00 08/09/23 02:52 Nasal Cannula Laboratory Results Sodium 138, potassium 3.2, BUN 17, creatinine 0.89. Diagnostic Findings Chest x-ray yesterday showed small right and trace left pleural effusions, the left pleural effusion decreased postthoracentesis. Mild pulmonary vascular congestion also noted. PG Care Time/CCT Total # of Minutes Spent Total Time Spent with Patient: Total time spent is greater than 50% in coordination of care (as documented) at patient's floor/unit and/or counseling patient: Coding Level of Care Code 51433 SUB INP/OBS CARE 2/35MIN Diagnoses Atrial fibrillation, new onset I48.91 Pleural effusion, bilateral J90 Hypervolemia E87.70 CML (chronic myelocytic leukemia) C92.10 HTN (hypertension) I10
[2023-08-09 11:48] LABS: Total Protein 6.9 gm/dl (6.0-8.3)
[2023-08-09] MEDS ORDERED: METOPROLOL TARTRATE 50 MG TAB PO STA (12:21)
--- NOTE | 2023-08-09 13:33 | Pulmonology Progress Note ---
Date of Service August 09, 2023 Assessment & Plan (1) Pleural effusion on left: (2) Pleural effusion on right: (3) Atrial fibrillation, new onset: (4) CML (chronic myelocytic leukemia): Plan 68-year-old female with a recently diagnosed history of CML who was placed on Dasatinib therapy and shortly after developed shortness of breath with pleural effusions. Thoracentesis performed on the left on 08/08/2023 with approximately 800 mL of serous fluid removed. Lights criteria suggest an exudative pleural effusion. I suspect the effusion is multifactorial related to Dasatinib and CHF. Await cytology from the pleural fluid to evaluate for malignancy. Patient is feeling well and her chest x-ray shows near resolution of the left pleural effusion. Please follow-up on the cytology results from the pleural effusion. Should she have recurrence of pleural fluid, can consider repeat thoracentesis. Recommend discussion with her oncologist regarding the use of Dasatinib for the treatment of CML moving forward given the presence of pleural effusions. No further recommendations at this time. Thank you for allowing me to participate in the care of this pleasant patient. Please call with questions. Admission and Anticipated Discharge Date Admission Date: August 05, 2023 Subjective Patient seen and examined. She is doing well off of supplemental oxygen. She feels her breathing has improved. She still has a mild lingering cough. She denies any chest pain, fevers, chills or night sweats. Review of Systems Review of Systems: All systems reviewed & are unremarkable except as noted in HPI & below Physical Exam Physical Exam: Constitutional: Patient appears to be of their stated age. Patient is in no apparent distress. Patient is well-developed. Eyes: Pupils are equal round and reactive to light. Conjunctivae are normal. Anicteric sclera. Ears nose, mouth and throat: Mallampati class 2. Normal posterior oropharynx. Uvula is midline. Neck: Trachea is midline. Visual inspection is normal. Respiratory: Bilateral crackles. No wheezes. No increased work of breathing. Cardiovascular: Tachycardic. Irregularly irregular. No murmurs. Gastrointestinal: Normal bowel sounds, soft, nontender and nondistended. No hepatosplenomegaly noted. Musculoskeletal: No cyanosis. Patient is able to move all extremities. Strength is 5 out of 5 in the upper and lower extremities. Skin: No rashes, warm dry and intact. Neurologic: No obvious focal neurological deficits seen. Psychiatric: Alert and oriented x3 with a euthymic affect. Results & Data Results & Data Vital Signs (Past 12 Hours) Vital Signs Temp Pulse Pulse Resp BP BP Pulse Ox 08/09/23 12:09 36.9 C 120 H 19 115/81 95 08/09/23 09:41 08/09/23 08:37 37.0 C 84 18 138/62 96 08/09/23 07:00 75 08/09/23 02:52 36.8 C 71 20 128/61 98 O2 Del Method 08/09/23 12:09 Room Air 08/09/23 09:41 Room Air 08/09/23 08:37 Room Air 08/09/23 07:00 08/09/23 02:52 Nasal Cannula PG Care Time/CCT Total # of Minutes Spent Total Time Spent with Patient: Total time spent is greater than 50% in coordination of care (as documented) at patient's floor/unit and/or counseling patient: Coding Level of Care Code 00700 SUB INP/OBS CARE 2/35MIN Diagnoses Pleural effusion on left J90 Pleural effusion on right J90 Atrial fibrillation, new onset I48.91 CML (chronic myelocytic leukemia) C92.10
[2023-08-09] MEDS: HEPARIN SODIUM/DEXTROSE 25,000 UNITS/500 ML BAG IV SCH (13:54)
[2023-08-09] MEDS: ATORVASTATIN 40 MG TAB PO SCH (21:05)
[2023-08-10] MEDS: LEVOTHYROXINE SODIUM 150 MCG TABLET PO SCH (05:50)
--- NOTE | 2023-08-10 06:47 | Hospitalist Progress Note ---
Date of Service August 10, 2023 Assessment & Plan (1) WAKLER (dyspnea on exertion): (2) CML (chronic myelocytic leukemia): (3) Right leg swelling: (4) Hypothyroidism in adult: (5) Hypercholesterolemia: (6) HTN (hypertension): (7) Atrial fibrillation, new onset: Plan Patient is a 68-year-old female with a past medical history of CML, hyperlipidemia, hypothyroidism, hypertension and no prior history of heart failure who presents with worsening shortness of breath and orthopnea. # Hypoxia/Moderate Bilateral Pleural effusion: - Started on Dasatinib for tx of CML last month - likely etiology since effusion out of proportion - Pulmonology consulted, patient s/p thoracentesis - pleural fluid LDH 191, pleural fluid protein 4.0 - serum LDH 231, serum total protein 6.9 - Pleural: serum LDH ratio > .6, protein ratio >.5, suggestive of exudative effusion and consistent with documented findings of pleural effusion secondary to dasatinib - Continue weaning off of supplemental oxygen #Acute diastolic heart failure Pt with signs of volume overload such as JVD, bilateral pleural effusions, and LE swelling, significantly improved apart from pleural effusions. BNP 325; Echo shows normal EF with moderate TR - Given improvement in LE edema and minimal JVD, will reduce Lasix 40mg IV daily - daily standing weight. I and O - monitor renal function. #Atrial Fibrillation, new onset: - Patient mostly NSR overnight, several overnight brief episodes of Afib, extended period of A-fib during day - Increase Metoprolol Tartrate to 50mg TID, plan to discharge on Metoprolol Succinate 75mg BID as recommended by cardiology - Cardiology consulted, appreciate recs - On Heparin for anticoagulation, plan to switch to Eliquis at discharge #CML Patient on Dasatinib, white count stable and WNL Dasatinib temporarily held pending cardiomyopathy evaluation #Right lower lung nodule - Noted on CT. - Needs outpatient follow up # HTN/HLD/Hypothyroid Patient on amlodipine/olmesartan at home, - substitute for formulary equivalent amlodipine and losartan Continue Metoprolol - continue statin - continue levothyroxine DVT PPx: Heparin Diet: Admission and Anticipated Discharge Date Admission Date: August 05, 2023 Ananya Blankenship is a 68-year-old female with a past medical history of CML, hyperlipidemia, hypothyroidism, hypertension and no prior history of heart failure who presents with worsening shortness of breath and orthopnea. Symptoms have increased over the last week. She does not have a home oxygen requirement. Patient evaluated at bedside this morning, found sitting up in bed in notable distress. Patient subsequently vomited repeatedly, notes that she began feeling ill shortly after IV potassium administration was started. Review of telemetry shows patient went into A-fib with RVR around the same time. Patient quickly felt better after vomiting and with discontinuation of IV potassium. Denies chest pain, palpitations, or lightheadedness. Physical Exam Constitutional: WD/WN, vitals as above comfortable Skin: no rashes, warm and dry Psychiatric: A+Ox3, euthymic affect Results & Data Results & Data Vital Signs (Past 12 Hours) Vital Signs Temp Pulse Resp BP Pulse Ox O2 Del Method 08/10/23 03:27 36.7 C 71 20 135/73 93 Room Air 08/09/23 23:24 36.7 C 70 20 130/74 93 Room Air 08/09/23 20:00 36.7 C 78 20 128/60 93 Room Air
[2023-08-10 07:04] LABS: BUN Creatinine Ratio 21.7 (10-20); Calcium 8.7 mg/dl (8.6-10.3); Creatinine Clr Calc Pharmacy 67.8 ml/min; Est GFR (African American) 74.2 ml/min; Magnesium 1.9 mg/dl (1.7-2.4); Potassium 3.7 mmol/L (3.5-5.1)
[2023-08-10 07:21] LABS: Partial Thromboplastin Ratio 2.7
[2023-08-10 07:38] LABS: Partial Thromboplastin Time 77.5 Seconds (21.0-31.0)
[2023-08-10] MEDS ORDERED: FUROSEMIDE 40 MG/4 ML VIAL IV SCH (09:00)
[2023-08-10] MEDS ORDERED: POTASSIUM CHLORIDE CRTAB 20 MEQ TABCR PO SCH (09:00)
[2023-08-10] MEDS ORDERED: APIXABAN 5 MG TABLET PO SCH (09:00)
[2023-08-10] MEDS ORDERED: METOPROLOL SUCC 25MG EXT REL TAB PO SCH (09:15)
[2023-08-10] MEDS: amLODIPine BESYLATE 5 MG TAB PO SCH (09:28)
[2023-08-10] MEDS: LOSARTAN POTASSIUM 50 MG TAB PO SCH (09:29)
[2023-08-10] MEDS: METOPROLOL TARTRATE 50 MG TAB PO SCH (10:47)
[2023-08-10 12:05] VITALS: PULSE 97; RESP 16; TEMP 98.4; O2SAT 96
[2023-08-10 14:20] VITALS: BP 128/61
--- NOTE | 2023-08-10 15:31 | Discharge Summary ---
Date of Service August 10, 2023 Admission HPI Per Admitting Provider Pattie is a 68-year-old female with a past medical history of CML, hyperlipidemia, hypothyroidism, hypertension and no prior history of heart failure who presents with worsening shortness of breath and orthopnea. Symptoms have increased over the last week. She does not have a home oxygen requirement. D-dimer is elevated, CTA on admission shows no evidence of PE, moderate bilateral pleural effusions are noted. 7 mm nodule in the right lower lobe is noted which may be reimaged in 6 to 12 months for stability Troponin is mildly elevated, downtrending and suspicious for demand No leukocytosis No EMMETT or electrolyte abnormalities COVID is negative No evidence of superimposed pneumonia Effusions are bilateral and increased from prior exam. Patient was noted to have a preserved EF of 65-70% June 2023 with no significant diastolic dysfunction. Differential for effusions include malignant exudative effusion, has not yet seen pulmonary for tap Shaheen reports she has had wosened breathign for 1 week. MOre dyspneic on exertion, and now notices her breathign is worse when laying flat. No history of similar symptoms. No history of heart failure. R leg is always mroe swollen than the left, but seems a little more than normal and also started amlodipine on 07/27/23. No fevers or chills. Is cold, but no shaking chills. Has had an intermittent new dry cough in the last week or so. Nonproductive c ough. No nausea/vomiting. Loose bowels sometimes, but no diarrhea otherwise. No hematochezia or melena. Diagnosed with CML this past October. She attributes this to the covid booster, notes her WBC rapidly increased 6 months after the booster shot. She is taking dasatinib 100mg daily. Follows with Dr. Acevedo. Was switched from her initial therapy due to itching and sweats. Medical History: Reviewed Medications: Reviewed. Surgical History: Reviewed Family history: Reviewed Allergies: Reviewed Social History: No tobacco, etoh, or marijuana use Code Status: Full Code Admission Exam Per Admitting Provider General: A&Ox3. NAD. Cooperative. HEENT: Atraumatic, normocephalic. Vision/hearing intact Pulm: Lungs diminished in the bases bilaterally with light crackles. No wheeze symmetrical chest rise. No increased work of breathing. No respiratory distress. Cardiac: RRR, -mrg. Radial pulses intact and symmetrical. JVD is present with HJR Abdominal: Nontender, nondistended, soft. BS present. Extremities: 1+ ankle edema bilaterally Principal Diagnosis Pleural effusion, SOB Discharge Exam Constitutional WD/WN, vitals as above Respiratory normal respiratory effort, lungs clear to auscultation Cardiovascular RRR, no murmur, no edema Skin no rashes, warm and dry Psychiatric A+Ox3, euthymic affect Discharge Data Allergies Allergy/AdvReac Type Severity Reaction Status Date / Time imatinib Allergy Intermediate horrible Unverified 08/05/23 16:22 rash and itching all over No Known Drug Allergies Allergy Verified 07/26/23 10:08 Consultations 08/05/23 15:07 ED Decision to Admit Stat 08/07/23 09:15 Consult Pulmonology Routine 08/07/23 10:58 Consult Cardiology Routine Ordered Studies 08/05/23 14:04 CT for pulmonary embolism PE [CT angio chest PE protocol] Stat 08/07/23 13:34 US point of care ultrasound Urgent 08/08/23 14:03 US point of care ultrasound Urgent Hospital Course (1) 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): (2) CML (chronic myelocytic leukemia): (3) Right leg swelling: (4) Hypothyroidism in adult: (5) Hypercholesterolemia: (6) HTN (hypertension): (7) Atrial fibrillation, new onset: Plan Patient is a 68-year-old female with a past medical history of CML, hyperlipidemia, hypothyroidism, hypertension and no prior history of heart failure who presented with worsening shortness of breath and orthopnea. # Hypoxia/Moderate Bilateral Pleural effusion: - Started on Dasatinib for tx of CML last month - likely etiology since effusion out of proportion - Pulmonology consulted, patient underwent thoracentesis, pleural fluid pathology pending at time of discharge - pleural fluid LDH 191, pleural fluid protein 4.0 - serum LDH 231, serum total protein 6.9 - Pleural: serum LDH ratio > .6, protein ratio >.5, results were suggestive of exudative effusion and consistent with documented findings of pleural effusion secondary to dasatinib -Oncology to address medication treatment for CML. -Weaned off of oxygen at the time of discharge #Acute diastolic heart failure Pt with signs of volume overload such as JVD, bilateral pleural effusions, and LE swelling, significantly improved apart from pleural effusions with increased diuresis during hospital stay. BNP 325; Echo showed normal EF with moderate TR - Given improvement in LE edema and minimal JVD, likely that heart failure was at least a contributing factor in patient presentation - Diuresed well and Discharged with increased Lasix dose of 40 mg PO dialy #Atrial Fibrillation, new onset: - Patient went into A-fib during hospital stay, went in and out of Afib and sometimes had rapid ventricular response - Patient mostly NSR overnight prior to discharge, had a few brief episodes of Afib - Metoprolol Tartrate changed to Metoprolol Succinate 75mg BID as recommended by cardiology - Patient discharged on Eliquis for chronic anticoagulation #CML Patient on Dasatinib, white countwas stable and WNL Dasatinib held during hospital stay due to concern that it may have led to pleural effusion and assoicated SOB - Reevaluate whether to restart in the outpatient setting #Right lower lung nodule - Noted on CT. - Recommend further work up in the outpatient setting # HTN/HLD/Hypothyroid Patient on amlodipine/olmesartan and metoprolol. - consider alternative antihypertensive other than amlodipine if LE swelling remains an issue following discharge. - continue metoprolol at 75mgs bid - continued statin - continued levothyroxine Total Time Total Time Spent Total Time Spent (In Minutes): see attending attestation Discharge Plan Discharge Items Patient Disposition: Home - Self-Care Reason For Visit: DYSPNEA, SUSPECT NEW CHF VS MALIGNANT EFFUSION Discharge Diagnosis: SOB, Pleural effusion Activity: Resume your previous activity Non-emergency contact: Primary Care Provider Call non-emergency contact if: you have any medication questions and your symptoms worsen Follow-up/Referrals: Pro,Aristides Kaplan MD [Primary Care Provider] - 08/15/23 10:45 am (Your appointment is with Tigist Aviles. ) Diet: Heart Healthy Addtl Attending Provider Instructions: You were admitted to the hospital for shortness of breath. You were treated with medication management to help remove excess fluid from your body. You also had a collection of fluid in your lungs. You had a procedure called a thoracentesis, where you had some of this fluid removed. A sample will be analyzed. During your hospital stay, you were also diagnosed with atrial fibrillation, a condition where you sometimes have an abnormal heart rhythm. Because of this, some of your medications were changed, as listed below. A discharge summary will be sent to your primary care physician to ensure continuity of care. Please bring this discharge summary with you to your next office appointment so that your provider can review it at that time. Medications: Your medication list has been reviewed and reconciled upon discharge to ensure accuracy and continuity of care. An updated list of all your medications is included with your hospital discharge paperwork. Please review this list closely and make note of any changes to your medications. New medications have been sent to your pharmacy. - Please STOP your metoprolol tartrate. Instead, please START metoprolol succinate, this is a longer acting formulation. Please take 75mg twice daily. - You were also started on an anticoagulant called Eliquis, this is to reduce the risk of clot formation due to your atrial fibrillation. Please take 1 5mg tablet twice daily. - We are keeping you on Lasix, but increasing your dose to 40mg once daily. - Please DO NOT take Dasatinib until you follow up with your outpatient doctor, who will help decide if/when to resume this medication. Follow up appointments: - Make a follow up appointment with your PCP within the next week. It is very important that you follow up with them shortly after discharge from the hospital. - Keep all of your follow up appointments as already scheduled. If you cannot make an appointment, notify your provider. CONTACT YOUR PRIMARY CARE PROVIDER if you experience any of the following: - Difficulty following your treatment plan - Difficulty taking any of your medications CALL 911 OR GO TO THE EMERGENCY DEPARTMENT if you experience any of the following: - Sudden, severe abdominal pain or nausea/vomiting - Severe chest pain or chest pain that radiates to your jaw or arm - Sudden, severe shortness of breath or difficulty breathing Pending Studies at Discharge: No Stand-Alone Forms: My [facility], Smoking Cessation Medications and DC Order Prescriptions: New Eliquis 5 mg Tablet 5 mg PO BID 30 Days Qty: 60 0RF metoprolol succinate 25 mg Tablet Extended Release 24 Hr 75 mg PO BID 30 Days Qty: 180 0RF furosemide 40 mg tablet 40 mg PO DAILY Qty: 30 0RF Continued levothyroxine 150 mcg capsule 150 mcg PO DAILY Qty: 90 3RF atorvastatin 40 mg tablet 40 mg PO HS Qty: 90 1RF amlodipine-olmesartan 5-40 mg tablet 1 tab PO DAILY Qty: 30 2RF Held dasatinib 100 mg tablet 100 mg PO DAILY Hold Instructions: Resume on 08/31/23. Please hold until you discuss whether to restart with your outpatient doctor. Discontinued metoprolol tartrate 50 mg tablet 50 mg PO BID Qty: 180 3RF furosemide 20 mg tablet 20 mg PO DAILY Discharge Orders: Discharge Order (Routine); Ordered 08/10/23 Ordered By: Pavel Jenkins/Other Patient Handouts: Apixaban Oral Tablet, Function Heart, AFib Admission Data Admit Date/Time: 08/05/23 16:21 Attending Provider: Josie Whitfield Admit Provider: Aravind Vilchis Primary Care Provider: Aristides Narayanan Other Providers: Aravind Vilchis ; Ken Gutierrez ; Wesley Kurtz Other Interventions: Discharge Summary Assessment (RN) Last Done: 08/10/23 14:18 Supervising Physician Co-Signing Physician Notes Resident Physician Supervision Note: I independently interviewed and examined the patient and verified the rai history and physical, reviewed labs and image studies and agree with resident findings and care plan. Resident Activity Tracking Resident Involvement: Resident Care Provided Care Provided: Adult Hospital Medicine
== END 2023-08-10 15:15 | disposition home or self-care (01) | DRG 291 ==
LOC: ED 11:26 → SUATTDRO 16:21 → EDINP 16:21 → 2E 08-06 01:12
DX: C92.10 Chronic myeloid leukemia, BCR/ABL-positive, not having achieved remission; E03.9 Hypothyroidism, unspecified; Z88.8 Allergy status to other drugs, medicaments and biological substances; Z79.890 Hormone replacement therapy; E78.00 Pure hypercholesterolemia, unspecified; Z79.899 Other long term (current) drug therapy; M79.89 Other specified soft tissue disorders; R91.1 Solitary pulmonary nodule; J91.8 Pleural effusion in other conditions classified elsewhere; I50.31 Acute diastolic (congestive) heart failure; I48.0 Paroxysmal atrial fibrillation; I11.0 Hypertensive heart disease with heart failure; Z11.52 Encounter for screening for COVID-19; R09.02 Hypoxemia

== ENCOUNTER 2024-12-28 13:02 | Inpatient (IN) ==
[2024-12-28] MEDS ORDERED: NITROGLYCERIN SL 0.4 MG/TAB TAB SL PRN (13:28)
[2024-12-28] MEDS: ASPIRIN CHEW 324 MG PO STA (13:34)
[2024-12-28 14:00] LABS: Base Excess VBG 0 mEq/L; HCO3 VBG 25 mmol/L; Oxygen Saturation VBG 71.3 %; PCO2 VBG 43 mmHg (38-50); PO2 VBG 39 mmHg; pH VBG 7.38 (7.36-7.41)
--- OUTSIDE RECORDS SUMMARY | 2024-12-28 14:00 | External Medical Summary | Continuity of Care Document ---
Author Name Unknown Organization [facility] Address [address] [place] [address] POLLO WELCH [phone] Care Team Providers Care Administrative Aide Name Role Phone Aristides Narayanan Primary Care Physician [phone] Encounter [facility] [id number] Date(s): 11/24/24 - 11/24/24 [facility] [id number], [place] [id number]- [phone] Encounter Diagnosis CML (chronic myeloid leukemia)(Discharge Diagnosis) - 11/24/24 Hypothyroidism(Discharge Diagnosis) - 11/24/24 Discharge Disposition: Home or Self Care Attending Physician: MD Junior Myles Stanley Referring Physician: MD Narayanan Jeffrey W Allergies, Adverse Reactions, Alerts Substance Criticality Severity Reaction Reaction Severity Status imatinib rash Active dasatinib fluid retention Acti ve Assessment and Plan Extracted from: Title:Oncology Office Visit Note Author:Nelli rios MD, Gelacio Ramirez Date:11/24/24 1.CML (chronic myeloid karon kemia) 2.Hypothyroidism KEISHA DUQUE Kis a69 YearsFemalepresenting forfurther management of CMLin the setting of atrial fibrillation, HTN, HLD, and peripheral edema. # CML, p210 breakpoint Rachelle was first diagnosed with CML in October 2022, She was asymptomatic at the time and she was having blood work [id number] and had an abnormal lab with leukocytosis. She had a leukocytosis around 1 year prior. She was on imatinib for roughly 2 months after developing a rash which was moderately responsive to steroids. Imatinib was started December 21, 2022 but was stopped March 14, 2023. It was restarted on April 30 at 100 mg and the rash and the pruritus returned. She subsequently went to use dasatinib which caused pruritus as well as pleural effusions. She started this on June 27, 2023 at 100 mg and she developed shortness of breath shortly thereafter and then went onto stop this in mid/late June. It was restarted on Jul 25 but she developed dyspnea and was noted to have fluid overload andpleural effusionswith L pleural effusion drained 800ml. In 08/2023 she started bosutinib in an attempt to gain better control over her CML without the side effect profile that she experienced with dasatinib or imatinib. She continues to tolerate thiswell. - Repeat labs in3 months - Will f/u today's BCR-ABL p210 to ensure progress toward remission - F/U in 3 months. sooner PRN TSH is high but FT4 is at goal. We'll maintain the Synthroid atcurrent dosing. Medications amlodipine-olmesartan 5 mg-40 mg oral tablet Start: 08/22/23 2:28:00 PM EDT, 1 tab, PO, Daily Start Date: 08/22/23 Status: Ordered atorvastatin 40 mg oral tablet Start: 09/02/15 2:44:00 PM EST, 1 tab, PO, Daily Start Date: 09/02/15 Status: Ordered bosutinib 400 mg oral tablet Start: 11/10/24 4:27:00 PM EST, 1 tab, PO, Daily, Disp# 30 tab, Refills: 11, Pharmacy: [facility] Start Date: 11/10/24 Stop Date: 11/05/25 Status: Ordered Eliquis 5 mg oral tablet Start: 08/22/23 2:28:00 PM EDT, 1 tab, PO, bid Start Date: 08/22/23 Status: Ordered furosemide 80 mg oral tablet Start: 08/22/23 3:16:00 PM EDT, 1 tab, PO, Daily, Disp# 60 tab, Refills: 6, Pharmacy: [id number] Start Date: 08/22/23 Stop Date: 03/19/24 Status: Ordered levothyroxine Start: 08/22/23 2:27:00 PM EDT, 150 mcg =, PO, Daily Start Date: 08/22/23 Status: Ordered Toprol-XL Start: 08/22/23 2:28:00 PM EDT, 75 mg =, PO, bid Start Date: 08/22/23 Status: Ordered Mental Status 11/24/24 Barriers to Learning one year None evide nt Mandatory Health Literacy Documentation Yes Health Literacy Communication Barriers N ever Primary Language Croatian Problem List Condition Confirmation Course Effective Dates Status H ealth Status Informant CML (chronic myeloid leukemia) Confirmed Active Hypothyroidism Confirmed Active Pes planus Confirmed Active Posterior tibial strain Confirmed Active Diagnosis Diagnosis Type Effective Dates Health Status Clinical Service Informant CML (chronic myeloid leukemia) Discharge Diagnosis 11/24/24 Non-Specified Hypothyroidism Discharge Diagnosis 11/24/24 Non-Specified Procedures Procedure Date Related Diagnosis Body Site Status Carpal tunnel 03/2019 Completed Uterine polyp 04/2016 Completed Results Laboratory List Name Date BCR/ABL p210 Quantitative PCR (BCR/ABL p 210 QUANT) 11/24/24 Complete Blood Count w Differential (CBC ,DIFFH) 11/24/24 Comprehensive Metabolic Panel (COMP META B PANEL) 11/24/24 T4, Free (T4, FREE) 11/24/24 Thyroid Stimulating Hormone (TSH) 11/24/24 Most recent to oldest [Reference Range]: 1 eGFR CKD-EPI [>60 mL/min/1.73 m2] 48 mL/ min/1.73 m2 *LOW* (11/24/24 12:29 PM) Estimated CrCl 50.49 mL/min (11/24/24 1:22 PM) BCR/ABL p210 [NDET] NONE DETECTED 1 (11/24/24 12: PM) MPV [9.0-12.2 fL] 9.2 fL (11/24/24 12:29 PM) Immature Gran% 0.4 % (11/24/24 12:29 PM) Neut% 75.4 % (11/24/24 12:29 PM) Lymph% 7.1 % (11/24/24 12:29 PM) [place]% 12.9 % (11/24/24 12:29 PM) Baso% 0.6 % (11/24/24 12:29 PM) Eos% 3.6 % (11/24/24 12:29 PM) Immat Gran, Abs [0-0.4 K/uL] 0.03 K/uL (11/24/24 12:29 PM) Neut, Abs [2.0-7.7 K/uL] 6.09 K/uL (11/24/24 12:29 PM) Lymph, Abs [1.0-3.4 K/uL] 0.57 K/uL *LOW* (2/3/25 12:29 PM) [place], Abs [0-1.0 K/uL] 1.04 K/uL *HI* (11/24/24 PM) Baso, Abs [0-0.1 K/uL] 0.05 K/uL (11/24/24 PM) Eos, Abs [0-0.5 K/uL] 0.29 K/uL (11/24/24 PM) Type of Diff: AUTO *Unknown* (11/24/24) RDW [11.5-14.2 %] 15.9 % *HI* (11/24/24 PM) Anion Gap [5-14 mmol/L] 11 mmol/L (11/24/24 PM) Alb [3.5-5.2 g/dL] 3.9 g/dL (11/24/24 PM) Alk Phos [35-115 unit/L] 116 unit/L 2 *HI* (11/24/24 PM) ALT [0-33 unit/L] 23 unit/L (11/24/24 PM) AST [0-32 unit/L] 22 unit/L (11/24/24 PM) BUN [6-23 mg/dL] 22 mg/dL (11/24/24 PM) Ca [8.4-10.2 mg/dL] 9.0 mg/dL (11/24/24 PM) Cl- [98-107 mmol/L] 103 mmol/L (11/24/24 PM) HCO3 [22-29 mmol/L] 24 mmol/L (11/24/24 PM) Cret [0.60-1.00 mg/dL] 1.21 mg/dL *HI* (11/24/24 PM) Glu [74-109 mg/dL] 103 mg/dL 3 (11/24/24 PM) Hct [35-44 %] 37.2 % (11/24/24 PM) Hgb [11.7-15.0 g/dL] 11.9 g/dL (11/24/24 PM) K [3.5-5.1 mmol/L] 4.3 mmol/L (11/24/24: PM) MCH [28-33 pg] 26.9 pg *LOW* (11/24/24 PM) MCHC [32-36 g/dL] 32.0 g/dL (11/24/24 PM) MCV [81-96 fL] 84.0 fL (11/24/24 PM) Na [136-145 mmol/L] 138 mmol/L (11/24/24 PM) Plts [150-350 K/uL] 335 K/uL (11/24/24 PM) RBC [3.90-5.00 M/uL] 4.43 M/uL (11/24/24 PM) Free T4 [0.9-1.7 ng/dL] 1.41 ng/dL (11/24/24 PM) T Bili [0.0-1.2 mg/dL] 0.4 mg/dL (11/24/24 PM) Prot [6.4-8.3 g/dL] 6.9 g/dL (11/24/24: PM) TSH [0.30-4.20 uIU/mL] 22.96 uIU/mL *HI* (11/24/24: PM) WBC [4.0-10.4 K/uL] 8.07 K/uL (11/24/24: PM) 1Result Comment: BCR-ABL1 fusion gene products (p210 RNA transcripts) were not detected. This result does not exclude the presence of p210 transcripts below the LOQ or the presence of other BCR-ABL1 fusion gene products that are not detected by this assay (p190 or p230 transcripts). This result has been reviewed and confirmed by Torin Odell M.D. Interpretive Comments: This assay quantifies both the b2/a2 (e13a2) and b3/a2 (e14a2) BCR-ABL1 RNA transcripts arising from the t(9:22) major breakpoint translocations that result in the production of a p210 fusion protein. BCR-ABL-1 translocations are seen in virtually all cases of chronic myelogenous leukemia (CML) and in some cases of acute lymphoblastic leukemia (ALL) and quantification of BCR-ABL1 transcripts have established value in leukemia diagnosis and monitoring response to TKI therapy. To improve test standardization, minimize between-laboratory variability to permit direct comparison of results between institutions and facilitate adoption of universal guidelines for assessment of major molecular response, our BCR-ABL1 assay results are reported using the International Scale (IS, see Leukemia 23:3937-6863, 2009). Methods: Total RNA is isolated, reverse transcribed to cDNA and non-rearranged ABL and rearranged BCR-ABL1 fusion transcripts are quantified by real-time nested PCR amplification using separate combined dual quencher/florescent labeled selective oligonucleotide probes for BCR-ABL1 and ABL amplicons. Fluorescence intensity is converted to normalized copy number (NCN) and the NCN ratio for BCR-ABL1/ABL is converted to a value on the %IS scale, using [employer] BCR-ABL IS Panel C130 calibrators. These calibrators consist of a set of reference materials which contain synthetic RNA transcripts of BCR-ABL1 b3/a2 (e14a2) at six concentrations (0,0.0032,0.01,0.1,1 and 10%IS) each mixed with synthetic ABL1 RNA transcripts at one fixed concentration. Limitations: The assay limit of quantitation (LOQ) is 0.0032% which corresponds to less than 1 positive cell in 100,000 total cells based on cellular mRNA titration studies in mutant and wild-type cells. This assay does not detect transcripts resulting from other BCR-ABL1 gene type cells. This assay does not detect transcripts resulting from other BCR-ABL1 gene rearrangements that give rise to the production of the p230 fusion or p190 fusion proteins. The results from this test must always be interpreted in the context of other relevant diagnostic and clinical data and should not be used as the sole diagnostic criterion for malignancy. Interpretation: <0.0032 %IS but with detectable BCR-ABL1 p210 mRNA = indeterminate value. For a previously treated patient, this corresponds to a Complete Molecular Remission (CMR with >4.5 log reduction in mutant BCR-ABL1 p210 mRNA). Indeterminate values may be seen in ostensibly healthy individuals without clinical or laboratory features of disease. >0.0032 %IS and <0.1 %IS = For a previously treated patient, this corresponds to a Major Molecular Response (MMR with >3 log reduction in mutant BCR-ABL1 p210 mRNA). >0.1 %IS = active disease present for a patient with accompanying clinical and laboratory features of disease (previously treated or untreated). Evaluation of test performance characteristics and assay validation as a lab-developed test were performed in the Molecular Diagnostic Laboratory at [facility]. This BCR-ABL p210 RT-qPCR test is not FDA-approved. The FDA has determined that such clearance or approval is not necessary for clinical use. The results from this test must always be interpreted in the context of other relevant diagnostic and clinical data and should not be used as the sole diagnostic criterion for malignancy. 2Result Comment: Low levels of ALKP may indicate a deficiency in zinc, magnesium, or malnutritionbutcan also be an indicator of a rare genetic disease hypophosphatasia (HPP). 3Result Comment: ADA recommendation for FASTING Serum/Plasma Glucose: Normal: 70-100 mg/dL Prediabetes: 100-125 mg/dL Diabetes: 126 mg/dL or higher Vital Signs Most recent to oldest [Reference Range]: 1 Height 163.5 cm (11/24/24 1:18 PM) Patient Weight 98.9 kg (11/24/24 1:18 PM) Body Mass Index 37 kg/m2 (11/24/24 1:18 PM) Temperature [36.5-37.9 DegC] 36.4 DegC *LOW* (11/24/24 1:18 PM) Heart Rate 66 bpm (11/24/24 1:18 PM) Respiratory Rate 16 br/min (11/24/24 1:18 PM) Blood Pressure 183/55mmHg (11/24/24 1:18 PM) Mean Blood Pressure 91 mmHg (11/24/24 1:18 PM) Cuff Pulse Pressure 128 mmHg (11/24/24 1:18 PM) BP Location # 1 Left Arm (11/24/24 1:18 PM) Social History Social History Type Response Smoking Status Never smoked cigaret raven Sex Female Sex Representation Female (finding) Hematology/Oncology Outpt Note * MD Sandi, Gelacio Ramirez: PERFORM Event Display: Hematology/Oncology Outpt Note Authored Date: [id number] Chief Complaint f/u visit History of Present Illness Preferred patient name: Rachelle Reason for Consult: further management of CML Referring provider: MD MAUREEN, WILVER MCNALLY History of Present Illness: KEISHA DUQUE a69 YearsFemalepresenting forfurther management of CMLin the setting of atrial fibrillation, HTN, HLD, and peripheral edema. Rachelle was first diagnosed with CML in October 2022, She was asymptomatic at the time and she was having blood work [id number] and had an abnormal lab with leukocytosis. She had a leukocytosis around 1 year prior. She was on imatinib for roughly 2 months after developing a rash which was moderately responsive to steroids. Imatinib was started 12/21/22 but was stopped 03/14/23. It was restarted on 04/30 at 100 mg and the rash and the mild intermittent loose stools andpruritus returned. She subsequently went to use dasatinib which caused pruritus as well as pleural effusions. She started this on 06/27/23 at 100 mg and she developed shortness of breath shortly thereafter and then went on to stop this in mid/late June. It was restarted on Jul 25 but she developed dyspnea and was noted to have fluid overload and pleural effusions requiring drained, L effusion drained 800ml. Interval history: She has had dry cracked skin. No changes there. Review of Systems Patient describes dry skin on handsand denies fevers, chills, sweats, or shakes. All other systems are negative. Physical Exam Vital Signs and Measurements This Visit - Last 24 Hours T:36.4C HR:66(Monitored) RR:16 BP:183/55 HT:163.5cm WT:98.9kg WT:98.900kg(Dosing) BMI:37 Karnofsky Performance Status: 100 Normal, no complaints, no evidence of disease. 90 x Able to carry on normal activity, minor signs or symptoms of disease. 80 Normal activity with effort, some signs or symptoms of disease. 70 Cares for self, unable to carry on normal activity or do active work. 60 Requires occasional assistance, but is able to care for most of his/her needs. 50 Requires considerable assistance and frequent medical care. 40 Disabled, requires special care and assistance. 30 Severely disabled, hospitalization indicated. not imminent. 20 Very sick, hospitalization indicated. not imminent. 10 Moribund, fatal processes progressing rapidly. 0 General: Pleasant and conversant, well groomed. Eyes: anicteric. Cardiovascular: Extremities well perfused Resp:talking without difficulty. No increased respiratory effort. MSK/extremities: Regular gait. No swelling, edema. Skin: No rashes. Neuro: No gross focal deficits. Moving all extremities without difficulty. Psych: Appropriate and interactive. Performance Scales and Status No documentation within the last 12 months Pain Score:0 Distress Scores/Interview Data Documented on:11/24/2024 13:16 Distress Practical Problems:1 Distress Family Problems:0 Distress Emotional Problems:1 Distress Spiritual/Hindu Concerns:1 Distress Physical Problems:1 Assessment/Plan 1.CML (chronic myeloid leukemia) 2.Hypothyroidism KEISHA DUQUE a69 YearsFemalepresenting forfurther management of CMLin the setting of atrial fibrillation, HTN, HLD, and peripheral edema. # CML, p210 breakpoint Rachelle was first diagnosed with CML in October 2022, She was asymptomatic at the time and she was having blood work [id number] and had an abnormal lab with leukocytosis. She had a leukocytosis around1 year prior. She was on imatinib for roughly 2 months after developing a rash which was moderately responsive to steroids. Imatinib was started December 21, 2022 but was stopped March 14, 2023. It wasrestarted on April 30 at 100 mg and the rash and the pruritus returned. She subsequently went to use dasatinib which caused pruritus as well as pleural effusions. She started this on June 27, 2023 at 100 mg and she developed shortness of breath shortly thereafter and then went onto stop thisin mid/late June. It was restarted on Jul 25 but she developed dyspnea and was noted to have fluid overload andpleural effusionswith L pleural effusion drained 800ml. In 08/2023 she started bosutinib in an attempt to gain better control over her CML without the sideeffect profile that she experienced with dasatinib or imatinib. She continues to tolerate thiswell. - Repeat labs in3 months - Will f/u today's BCR-ABL p210 to ensure progress toward remission - F/U in 3 months. sooner PRN TSH is high but FT4 is at goal. We'll maintain the Synthroid atcurrent dosing. Staging Information No information available Problem List/Past Medical History Ongoing CML (chronic myeloid leukemia) Hypothyroidism Pes planus Posterior tibial strain Procedure/Surgical History Carpal tunnel| Service Date: 03/2019Uterine polyp| Service Date: 04/2016 Medications amlodipine-olmesartan(amlodipine-olmesartan 5 mg-40 mg oral tablet), 1 tab, PO, Daily apixaban(Eliquis 5 mg oral tablet), 5 mg= 1 tab, PO, bid atorvastatin(atorvastatin 40 mg oral tablet), 40 mg= 1 tab, PO, Daily bosutinib(bosutinib 400 mg oral tablet), 400 mg= 1 tab, PO, Daily, 11 refills furosemide(furosemide 80 mg oral tablet), 80 mg= 1 tab, PO, Daily, 6 refills levothyroxine, 150 mcg, PO, Daily metoprolol(Toprol-XL), 75 mg, PO, bid Allergies dasatinibfluid retention imatinibrash Social History Smoking Status Never smoked cigarettes Labs Na: 138 mmol/L (11/24/24 12:29:00) K: 4.3 mmol/L (11/24/24:29:00) Cl-: 103 mmol/L (11/24/24:29:00) BUN: 22 mg/dL (11/24/24 12:29:00) Cret:1.21 mg/dLHigh (11/24/24:29:00) Glu: 103 mg/dL (11/24/24 12:29:00) Ca: 9 mg/dL (11/24/24 12:29:00) WBC: 8.07 K/uL (11/24/24 12:29:00) Hgb: 11.9 g/dL (11/24/24 12:29:00) Hct: 37.2 % (11/24/24 12:29:00) MCV: 84 fL (11/24/24 12:29:00) Plts: 335 K/uL (11/24/24 12:29:00) Neut%: 75.4 % (11/24/24 12:29:00) Baso%: 0.6 % (11/24/24:29:00) Neut, Abs: 6.09 K/uL (11/24/24:29:00) Lymph, Abs:0.57 K/uLLow (11/24/24 12:29:00) ALT: 23 unit/L (11/24/24 12:29:00) T Bili: 0.4 mg/dL (11/24/24 12:29:00) Alk Phos:116 unit/LHigh (11/24/24 12:29:00) AST: 22 unit/L (11/24/24 12:29:00) Electronic Signature on File CC: Aristides Narayanan MD [facility] [address] [place] [id number] * Electronically Reviewed/Signed by: Gelacio Junior MD Author Signature Dt/Tm:11/24/2024 01:34 PM Division of Hematology Oncology MSN Patient Care team information Care Team Personnel Name: Machelle Ravi RPh, William Position: Pharmacist Member Role: Pharmacy - Lifetime Name: MD Oracio, Aristides Hoang Position: Referring DIRECT Member Role: Primary Care Provider Address: [facility] [address] [place] [address] Name: Ammy Robert Annette Position: Pharmacist Member Role: Pharmacy - Lifetime Care Team Related Persons Name: JAYY SR"
[2024-12-28 14:08] LABS: Basophils # (auto) 0.06 K/uL (0.00-0.20); Basophils % (auto) 0.7 %; Eosinophils # (auto) 0.23 K/uL (0.00-0.50); Eosinophils % (auto) 2.6 %; Hematocrit (blood only) 38.7 % (37.0-47.0); Hemoglobin 12.4 g/dl (12.0-16.0); Immature Granulocytes # (auto) 0.04 K/uL (0.01-0.20); Immature Granulocytes % (auto) 0.5 %; Lymphocytes % (auto) 4.6 %; Mean Corpuscular Hemoglobin 26.6 pg (25.0-34.0); Mean Platelet Volume 9.6 fL (9.4-12.4); Monocytes # (auto) 0.75 K/uL (0.11-0.59); Monocytes % (auto) 8.6 %; Neutrophils # (auto) 7.21 K/uL (1.40-6.50); Platelet Count 334 K/uL (130-400); RDW Coefficient of Variation 16.2 % (11.5-14.5); RDW Standard Deviation 49.4 fL (36.4-46.3); Red Blood Count 4.66 M/uL (4.20-5.40); White Blood Count 8.69 K/ul (4.8-10.8)
--- NOTE | 2024-12-28 14:09 | XRay Report ---
EXAM: Radiograph of the Chest 1 View INDICATION: Chest pain TECHNIQUE: Frontal view of the chest. COMPARISON: 08/07/2023 FINDINGS: Lungs and pleural spaces: There is bilateral basilar airspace consolidation, small pleural effusions and pulmonary vascular congestion. Appearance similar to the prior study. No pneumothorax. Heart: Stable enlarged cardiac shadow. Mediastinum: Normal contour. Bones/joints: No fracture, erosion or dislocation. Soft tissues: No abnormality noted. No radiopaque foreign body noted. Upper abdomen: No abnormality noted. IMPRESSION: CHF. Basilar pneumonia not excluded. ACT 112: N/A Electronically signed by Rowan Reno 12-28-2024 2:08 PM
[2024-12-28 14:21] LABS: BUN Creatinine Ratio 15.5 (10-20); Calcium 9.1 mg/dl (8.6-10.3); Creatinine Clr Calc Pharmacy 46.9 ml/min; Potassium 4.1 mmol/L (3.5-5.1)
[2024-12-28 14:30] LABS: Troponin I High Sensitivity 11.3 pg/ml (0-14)
[2024-12-28 14:32] LABS: INR 1.1 (0.9-1.1); Partial Thromboplastin Ratio 1.2; Partial Thromboplastin Time 31 Seconds (21-31); Prothrombin Time 11.6 Seconds (9.0-12.0)
--- NOTE | 2024-12-28 15:34 | History & Physical Report ---
Date of Service December 28, 2024 Assessment & Plan (1) Acute diastolic CHF (congestive heart failure): Plan: Parenteral Lasix. Monitor intake and output. Serial chest x-ray. Obtain cardiac echo (2) Acute respiratory failure with hypoxia: Plan: Supplemental oxygen per nasal cannula to maintain saturation greater than 90%. Wean off as tolerated (3) Paroxysmal atrial fibrillation: Plan: Currently in normal sinus rhythm. Telemetry. Continue metoprolol and Eliquis (4) CML (chronic myelocytic leukemia): Plan: bosutinib is currently on hold (5) HTN (hypertension): Plan: She currently takes amlodipine, olmesartan, metoprolol. Metoprolol dosage has been down titrated however due to mild bradycardia (6) Hypothyroidism in adult: Plan: Check free T3 and free T4 levels. Continue current thyroid replacement for now Plan Hopeful discharge to home within the next 2 to 3 days History of Present Illness Chief Complaint: Shortness of breath Primary Care Provider: Aristides Narayanan MD 69-year-old female with a history of diastolic congestive heart failure. For the past several days she has noticed dyspnea on exertion and orthopnea. She presents to the ED for evaluation with evidence of congestive heart failure. She has mild acute hypoxic respiratory failure and is currently requiring 2 L oxygen per nasal cannula. She refuses placement of Champagne catheter or pure wick. Intake and output needs to be followed closely nevertheless. She will be given intravenous Lasix. Cardiac echo will be obtained. Previous cardiac echo was done in July 2023. She denies palpitations, chest pain, syncope Allergies Allergy/AdvReac Type Severity Reaction Status Date / Time imatinib Allergy Intermediate horrible Unverified 12/28/24 15:03 rash and itching all over Home Medications Medication Instructions Recorded Confirmed Type bosutinib 400 mg tablet (Bosulif) 400 mg PO QPM 11/05/23 12/28/24 History apixaban 5 mg tablet (Eliquis) 5 mg PO BID #60 tabs 05/06/24 12/28/24 Rx levothyroxine 150 mcg tablet 150 mcg PO DAILY 08/04/24 12/28/24 History amlodipine 5 mg-olmesartan 40 mg 1 tab PO DAILY #30 tabs 10/14/24 12/28/24 Rx tablet furosemide 40 mg tablet 40 mg PO DAILY #30 tabs 10/20/24 12/28/24 Rx atorvastatin 40 mg tablet 40 mg PO HS #90 tabs 10/27/24 12/28/24 Rx metoprolol succinate 25 mg 75 mg (3 x 25 mg) PO BID 30 days 11/03/24 12/28/24 Rx tablet,extended release 24 hr #180 tabs Past Med/Surg History Problem List (Updated 12/28/24 @ 15:33 by Dimitris Cates MD) Acute respiratory failure with hypoxia Acute diastolic CHF (congestive heart failure) Venous insufficiency Hypothyroidism Chronic anticoagulation Tricuspid regurgitation Paroxysmal atrial fibrillation Edema Right lower lobe pulmonary nodule Pleural effusion, bilateral Pleural effusion on right Pleural effusion on left Pleural effusion (Acute) CML (chronic myelocytic leukemia) 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) Elevated WBC count Bilateral foot pain (Chronic) Right leg swelling (Acute) Right leg pain Right foot pain (Acute) Ankle pain, right (Acute) Hypothyroidism in adult (Chronic) Hypercholesterolemia (Chronic) Hyperglycemia (Chronic) HTN (hypertension) (Chronic) Medical History Elevated TSH Atrial fibrillation with controlled ventricular rate Atrial fibrillation, new onset Superficial thrombophlebitis Hyperprolactinemia Herpes zoster Diverticulosis Carpal tunnel syndrome Surgical History History of hysteroscopy H/O oral surgery Family History Other Prostate cancer Denies family history of Ovarian cancer Breast cancer Lung cancer Colorectal cancer Social History Smoking Status: Never smoker Second Hand Exposure: No; Do You Dip or Chew Tobacco: No; Hx Alcohol Use: No Hx Substance Use: No Preferred Language: Kiswahili Communication Ability: Effective Customer Consultant Required: No Beliefs That Will Affect Care: None marital status: Single Current Living Situation: Alone current occupational status: retired Feels Safe at Home: Yes Childhood Exposure to Second-Hand Smoke: No Diet: regular Dental Care, Regularly: Yes Physical Activity Frequency: Does not Exercise Seatbelt Use: always Sunscreen Use: Yes Assistive Devices: Glasses Review of Systems 2 Review of Systems: Constitutionalno fever or chills ENTno blurred vision, no double vision, no epistaxis, no sore throat Respiratoryno cough, no wheezing. She does have dyspnea on exertion and orthopnea Cardiacno palpitations, no chest pain, no syncope Deidra nausea, vomiting, diarrhea, melena, hematochezia GUno urinary retention, no urinary incontinence, no dysuria, no hematuria Musculoskeletalno joint pain, no muscle tenderness. Chronic 2+ peripheral edema below the knees which is unchanged according to the patient Skinno bruising, no rashes, no pruritus Neurono isolated weakness, no paresthesia Psychno depression, no anxiety Physical Exam 2 Physical Exam: General-alert and oriented x3, no fever, no chills HEENT-head atraumatic and normocephalic, pupils equal and reactive to light, extraocular muscles intact Neck-no lymphadenopathy or thyromegaly, trachea midline Chest-bibasilar inspiratory rales. No rhonchi. No wheezing Cardiac-regular rate and rhythm, normal S1 and S2, grade 2/6 pansystolic blowing murmur Abdomen-normal bowel sounds, no hepatosplenomegaly Extremities-no cyanosis, clubbing. Chronic 2+ pitting edema below the knees bilaterally Neuro-cranial nerves II through XII intact, motor and sensory function within normal limits, strength symmetrical, no focal deficits Psych-normal affect, normal mood Results & Data Results & Data Vital Signs (Past 12 Hours) Vital Signs Temp Pulse Pulse Resp BP BP Pulse Ox 12/28/24 14:02 57 L 12/28/24 13:42 94 12/28/24 13:42 60 21 179/85 H 94 12/28/24 13:42 89 L 12/28/24 13:15 36.4 C L 60 24 213/84 H 93 O2 Del Method O2 Flow Rate 12/28/24 14:02 12/28/24 13:42 Nasal Cannula 2 12/28/24 13:42 Nasal Cannula 2 12/28/24 13:42 Room Air, Nasal Cannula 12/28/24 13:15 Room Air Laboratory Results 12/28/24 13:47 12/28/24 13:47 Code Status & VTE Plan Code Status Full code PG Care Time/CCT Total # of Minutes Spent Total Time Spent with Patient: Total time spent is greater than 50% in coordination of care (as documented) at patient's floor/unit and/or counseling patient: Coding Level of Care Code 68420 INT INP/OBS CARE 3/75MIN Diagnoses Acute diastolic CHF (congestive heart failure) I50.31 Acute respiratory failure with hypoxia J96.01 Paroxysmal atrial fibrillation I48.0 CML (chronic myelocytic leukemia) C92.10 HTN (hypertension) I10 Hypothyroidism in adult E03.9
[2024-12-28] MEDS ORDERED: ONDANSETRON INJ 2 MG/ML 2 ML VIAL IV PRN (18:41)
[2024-12-28 19:38] LABS: T4 Free Thyroxine 1.31 ng/dl (0.61-1.60)
--- NOTE | 2024-12-28 20:26 | Emergency Department Note ---
History of Present Illness General Chief Complaint: Shortness of Breath/Dyspnea Stated Complaint: SOB Time Seen by Provider: 12/28/24 13:28 History of Present Illness Provider Complaint: shortness of breath Onset (ago): week(s) (1) Consistency/Duration: + progressively worsening Relieved By: + upright position Exacerbated By: + lying flat Known history of: COPD and congestive heart failure Associated symptoms: + chest congestion; no pain with inspiration, no cough, no wheezing or no hemoptysis Related Data Home oxygen amount: none Home Medications Medication Instructions Recorded Confirmed Type bosutinib 400 mg tablet (Bosulif) 400 mg PO QPM 11/05/23 12/28/24 History apixaban 5 mg tablet (Eliquis) 5 mg PO BID #60 tabs 05/06/24 12/28/24 Rx levothyroxine 150 mcg tablet 150 mcg PO DAILY 08/04/24 12/28/24 History amlodipine 5 mg-olmesartan 40 mg 1 tab PO DAILY #30 tabs 10/14/24 12/28/24 Rx tablet furosemide 40 mg tablet 40 mg PO DAILY #30 tabs 10/20/24 12/28/24 Rx atorvastatin 40 mg tablet 40 mg PO HS #90 tabs 10/27/24 12/28/24 Rx metoprolol succinate 25 mg 75 mg (3 x 25 mg) PO BID 30 days 11/03/24 12/28/24 Rx tablet,extended release 24 hr #180 tabs Allergies Allergy/AdvReac Type Severity Reaction Status Date / Time imatinib Allergy Intermediate horrible Unverified 12/28/24 15:03 rash and itching all over Past Med/Surg History Problem List (Updated 12/28/24 @ 20:26 by Pavel Irby MD) CHF exacerbation (Acute) Acute respiratory failure with hypoxia Acute diastolic CHF (congestive heart failure) Venous insufficiency Hypothyroidism Chronic anticoagulation Tricuspid regurgitation Paroxysmal atrial fibrillation Edema Right lower lobe pulmonary nodule Pleural effusion, bilateral Pleural effusion on right Pleural effusion on left Pleural effusion (Acute) CML (chronic myelocytic leukemia) 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) Elevated WBC count Bilateral foot pain (Chronic) Right leg swelling (Acute) Right leg pain Right foot pain (Acute) Ankle pain, right (Acute) Hypothyroidism in adult (Chronic) Hypercholesterolemia (Chronic) Hyperglycemia (Chronic) HTN (hypertension) (Chronic) Medical History Elevated TSH Atrial fibrillation with controlled ventricular rate Atrial fibrillation, new onset Superficial thrombophlebitis Hyperprolactinemia Herpes zoster Diverticulosis Carpal tunnel syndrome Surgical History History of hysteroscopy H/O oral surgery Family History Other Prostate cancer Denies family history of Ovarian cancer Breast cancer Lung cancer Colorectal cancer Social History Smoking Status: Never smoker Second Hand Exposure: No; Do You Dip or Chew Tobacco: No; Hx Alcohol Use: No Hx Substance Use: No Preferred Language: Northern Irish Communication Ability: Effective 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 Beliefs That Will Affect Care: None marital status: Single Current Living Situation: Alone current occupational status: retired Feels Safe at Home: Yes Childhood Exposure to Second-Hand Smoke: No Diet: regular Dental Care, Regularly: Yes Physical Activity Frequency: Does not Exercise Seatbelt Use: always Sunscreen Use: Yes Assistive Devices: Glasses Physical Exam 2 Vital Signs: Vital Signs - 24 hr 12/28/24 13:15 12/28/24 13:42 12/28/24 13:42 Temperature 36.4 C L Temperature Source Temporal Artery Sc an Pulse Rate 60 Pulse Rate [Apical ] 60 Pulse Rate from Sp O2 Sensor Respiratory Rate 24 21 Respiratory Effort / Characteristics SOB on Exertion Non-Labored Sponta neous Respiratory Depth Normal Blood Pressure 213/84 H Blood Pressure [Ri ght Arm] 179/85 H Blood Pressure Abbie n 127 Blood Pressure Abbie n [Right Arm] 116 Pulse Oximetry 93 89 L 94 Oxygen Delivery Me thod Room Air Room Air Nasal Can nula Nasal Cannula Oxygen Flow Rate 2 Sepsis Recent Feve r Within 48 Hours No Sepsis New/Unexpla ined Change in Men keanu Status No Sepsis Action Take n by Nursing No Action Required Oxygen Flow Rate - Titration 2 Pulse Oximetry Pos t Tiitration 94 12/28/24 13:42 12/28/24 14:02 12/28/24 14:12 Temperature Temperature Source Pulse Rate 57 L 57 L Pulse Rate [Apical ] Pulse Rate from Sp O2 Sensor 57 L Respiratory Rate 26 H Respiratory Effort / Characteristics Respiratory Depth Blood Pressure 161/74 H Blood Pressure [Ri ght Arm] Blood Pressure Abbie n 103 Blood Pressure Abbie n [Right Arm] Pulse Oximetry 94 94 Oxygen Delivery Me thod Nasal Cannula Room Air Oxygen Flow Rate 2 Sepsis Recent Feve r Within 48 Hours Sepsis New/Unexpla ined Change in Men keanu Status Sepsis Action Take n by Nursing Oxygen Flow Rate - Titration Pulse Oximetry Pos t Tiitration 12/28/24 14:12 12/28/24 14:30 12/28/24 15:00 Temperature Temperature Source Pulse Rate 56 L 57 L Pulse Rate [Apical ] Pulse Rate from Sp O2 Sensor 56 L 57 L Respiratory Rate 20 23 Respiratory Effort / Characteristics Respiratory Depth Blood Pressure 161/74 H 163/74 H 177/83 H Blood Pressure [Ri ght Arm] Blood Pressure Abbie n 122 131 114 Blood Pressure Abbie n [Right Arm] Pulse Oximetry 94 95 Oxygen Delivery Me thod Room Air Nasal Cannula Oxygen Flow Rate 2 Sepsis Recent Feve r Within 48 Hours Sepsis New/Unexpla ined Change in Men keanu Status Sepsis Action Take n by Nursing Oxygen Flow Rate - Titration Pulse Oximetry Pos t Tiitration 12/28/24 15:03 12/28/24 15:21 Temperature Temperature Source Pulse Rate 62 56 L Pulse Rate [Apical ] Pulse Rate from Sp O2 Sensor 61 56 L Respiratory Rate 25 H 20 Respiratory Effort / Characteristics Respiratory Depth Blood Pressure 169/73 H 170/75 H Blood Pressure [Ri ght Arm] Blood Pressure Abbie n 105 106 Blood Pressure Abbie n [Right Arm] Pulse Oximetry 94 94 Oxygen Delivery Me thod Nasal Cannula Nasal Cannula Oxygen Flow Rate 2 2 Sepsis Recent Feve r Within 48 Hours Sepsis New/Unexpla ined Change in Men keanu Status Sepsis Action Take n by Nursing Oxygen Flow Rate - Titration Pulse Oximetry Pos t Tiitration Physical Exam: Physical Exam GENERAL: oriented to person, place, and time. appears well-developed and well- nourished. HENT: Exam performed. - Head: Normocephalic and atraumatic. EYES: Conjunctivae and EOM are normal. Right eye exhibits no discharge. Left eye exhibits no discharge. No scleral icterus. NECK: Normal range of motion. Neck supple. No JVD present. CV: Normal rate, regular rhythm, normal heart sounds and intact distal pulses. 3+ pitting edema of the bilateral lower extremity. Palpable radial pulses bue. PULM/CHEST: Inspiratory rales bilaterally ABD: The abdomen is soft. There is no tenderness. NEURO: Motor and sensation grossly intact. SKIN: Skin is warm and dry. He is not diaphoretic. PSYCH: normal mood and affect. Behavior is normal. Judgment and thought content normal. Course Course 1328: The patient was evaluated in room B4. A complete history and physical exam was performed Cardiac monitoring: An order was placed for continuous cardiac monitoring. The monitor shows a rate of 60 with sinus rhythm interpreted by me 1340: Patient became hypoxic on room air. Supplemental oxygen was applied via nasal cannula which improved the patient's oxygen saturation. 1440: Vital signs stable on supplemental oxygen via nasal cannula. Labs are unremarkable with the exception of a elevated proBNP of 329 high-sensitivity troponin is within normal limits. Chest x-ray shows cardiomegaly with cephalization. [facility] be [facility] with IV Las[facility]. Administered Medications Discontinued Medications Aspirin (Aspirin Chew 324 Mg) 324 mg PO NOW STA Stop: 12/28/24 13:29 Last Admin: 12/28/24 13:34 Dose: 324 mg Documented By: SANDRINE Medical Decision Making Laboratory Data Attestation: I reviewed the patient's lab results. 12/28/24 13:47 12/28/24 13:47 Lab Results 12/28/24 Range/Units 13:47 WBC 8.69 (4.8-10.8) K/ul RBC 4.66 (4.20-5.40) M/uL Hgb 12.4 (12.0-16.0) g/dl Hct 38.7 (37.0-47.0) % MCV 83.0 (80.0-100.0) fL MCH 26.6 (25.0-34.0) pg MCHC 32.0 (32.0-36.0) g/dL RDW Std Deviation 49.4 H (36.4-46.3) fL RDW Coeff of Xuan 16.2 H (11.5-14.5) % Plt Count 334 (130-400) K/uL MPV 9.6 (9.4-12.4) fL Immature Gran % (Auto) 0.5 % Neut % (Auto) 83.0 % Lymph % (Auto) 4.6 % [place] % (Auto) 8.6 % Eos % (Auto) 2.6 % Baso % (Auto) 0.7 % Neut # (Auto) 7.21 H (1.40-6.50) K/uL Lymph # (Auto) 0.40 L (1.20-3.40) K/uL [place] # (Auto) 0.75 H (0.11-0.59) K/uL Eos # (Auto) 0.23 (0.00-0.50) K/uL Baso # (Auto) 0.06 (0.00-0.20) K/uL Immature Gran # (Auto) 0.04 (0.01-0.20) K/uL PT 11.6 (9.0-12.0) Seconds INR 1.1 (0.9-1.1) APTT 31 (21-31) Seconds PTT Ratio 1.2 VBG pH 7.38 (7.36-7.41) VBG pCO2 43 (38-50) mmHg VBG pO2 39 mmHg VBG HCO3 25 mmol/L VBG O2 Saturation 71.3 % VBG Base Excess 0 mEq/L Sodium 140 (136-145) mmol/L Potassium 4.1 (3.5-5.1) mmol/L Chloride 106 (98-107) mmol/L Carbon Dioxide 27 (21-32) mmol/L Anion Gap 7 (3-11) BUN 20 (6-23) mg/dl Creatinine 1.29 H (0.6-1.2) mg/dl Est Cr Clr Drug Dosing 46.9 ml/min eGFR 44.93 BUN/Creatinine Ratio 15.5 (10-20) Glucose 115 H (70-99(Fasting)) mg/dl Calcium 9.1 (8.6-10.3) mg/dl Troponin I High Sens 11.3 (0-14) pg/ml B-Natriuretic Peptide 329 H (0-100) pg/ml Lipase 26 (11-82) U/L Free T4 1.31 (0.61-1.60) ng/dl Free T3 2.54 (2.3-4.2) pg/ml Imaging Data Attestation: I personally reviewed and interpreted this imaging study as follows: My Impression: Chest x-ray: Cardiomegaly with cephalization Radiologist's Impression: Chest X-Ray 12/28/24 13:28 EXAM: Radiograph of the Chest 1 View INDICATION: Chest pain TECHNIQUE: Frontal view of the chest. COMPARISON: 08/07/2023 FINDINGS: Lungs and pleural spaces: There is bilateral basilar airspace consolidation, small pleural effusions and pulmonary vascular congestion. Appearance similar to the prior study. No pneumothorax. Heart: Stable enlarged cardiac shadow. Mediastinum: Normal contour. Bones/joints: No fracture, erosion or dislocation. Soft tissues: No abnormality noted. No radiopaque foreign body noted. Upper abdomen: No abnormality noted. IMPRESSION: CHF. Basilar pneumonia not excluded. ACT 112: N/A Electronically signed by Rowan Reno 12-28-2024 2:08 PM ECG Data Attestation: I personally reviewed and interpreted this ECG as follows: Interpretation: Sinus rhythm with a rate of 59. SC QRS and QTc intervals within normal limits. No ST elevation or ST depression. [facility] Narrative 1328: The patient was evaluated in room B4. A complete history and physical exam was performed Cardiac monitoring: An order was placed for continuous cardiac monitoring. The monitor shows a rate of 60 with sinus rhythm interpreted by ut 1340: Patient became hypoxic on room air. Supplemental oxygen was applied via nasal cannula which improved the patient's oxygen saturation. 1440: Vital signs stable on supplemental oxygen via nasal cannula. Labs are unremarkable with the exception of a elevated proBNP of 329 high-sensitivity troponin is within normal limits. Chest x-ray shows cardiomegaly with cephalization. Patient be treated with IV Lasix [facility]. Impression & Plan CHF exacerbation Critical Care Time Critical Care Time: Yes Total Critical Care Time: 36 I have personally spent greater than 36 minutes of critical care time in the direct management of this patient. This includes bedside care, interpretation of diagnostic studies, and testing, discussion with consultants, patient, and family members, and other required patient management activities. This 36 minutes is in excess of all separately billable procedures. Discharge Plan Visit Data Chief Complaint: Shortness of Breath/Dyspnea Stated Complaint: SOB ED Provider: Pavel Irby Discharge Problem: CHF exacerbation Patient Disposition: Admitted As Inpatient Discharge Instructions Interventions: ED Discharge Assessment Last Done: 12/28/24 18:04
[2024-12-28] MEDS: FUROSEMIDE 40 MG/4 ML VIAL IV SCH (20:42)
[2024-12-28] MEDS: ATORVASTATIN 40 MG TAB PO SCH (20:43)
[2024-12-28] MEDS: APIXABAN 5 MG TABLET PO SCH (20:43)
[2024-12-28] MEDS: METOPROLOL TARTRATE 50 MG TAB PO SCH (20:43)
--- NOTE | 2024-12-29 05:41 | Electrocardiogram Report ---
Test Reason : Blood Pressure : */* mmHG Vent. Rate : 59 BPM Atrial Rate : 59 BPM P-R Int : 188 ms QRS Dur : 90 ms QT Int : 432 ms P-R-T Axes : 22 21 44 degrees QTcB Int : 427 ms Sinus bradycardia Otherwise normal ECG When compared with ECG of 26-Jul-2024 15:35, No significant change was found Confirmed by Mainor Olivares ([id number]) on 12/29/2024 5:41:33 AM Referred By: Aristides Narayanan Confirmed By: Mainor Olivares
[2024-12-29] MEDS: LEVOTHYROXINE SODIUM 150 MCG TABLET PO SCH (06:15)
[2024-12-29 06:42] LABS: BUN Creatinine Ratio 16.8 (10-20); Calcium 8.3 mg/dl (8.6-10.3); Creatinine Clr Calc Pharmacy 42.2 ml/min; Potassium 3.9 mmol/L (3.5-5.1)
[2024-12-29] MEDS: LOSARTAN POTASSIUM 50 MG TAB PO SCH (08:18)
[2024-12-29] MEDS: amLODIPine BESYLATE 5 MG TAB PO SCH (08:18)
--- NOTE | 2024-12-29 08:20 | Hospitalist Progress Note ---
Date of Service December 29, 2024 Assessment & Plan (1) Acute diastolic CHF (congestive heart failure): (2) Acute respiratory failure with hypoxia: (3) Paroxysmal atrial fibrillation: (4) CML (chronic myelocytic leukemia): (5) HTN (hypertension): (6) Hypothyroidism in adult: Plan Progression of WALKER to SOB at rest. Continued stay for acute CHF. #Acute diastolic heart failure BNP elevated at 329 on arrival Last echocardiogram on 08/06/2023 revealed LVEF at 60 to 65% Repeat echocardiogram is currently ordered and pending Lasix 40 mg IV BID17 Daily weights #Acute respiratory failure with hypoxia Requiring supplemental oxygen on admission SpO2 92% on 2L NC on 12/29 Titrate supplemental oxygen as needed to maintain SpO2 >94% Continuous pulse oximetry #Paroxysmal atrial fibrillation Rate controlled; NSR Continue metoprolol, Eliquis #CML Continue to hold Bosutinib in the setting of acute CHF exacerbation Plan to restart 01/01 #HTN Continue amlodipine, olmesartan, metoprolol Note: Metoprolol down titrated from 75->50mg BID due to bradycardia #Hypothyroidism Continue thyroid supplement Disposition: Continued stay on [facility] with telemetry; hopeful discharge in 2 to 3 days Heart healthy, low-sodium diet VTE PPx: Eliquis Admission and Anticipated Discharge Date Admission Date: December 28, 2024 Ananya Blankenship reports her breathing is much improved from yesterday. Initially, she presented for progression of WALKER to SOB at rest, however she does not have trouble breathing at rest on the morning of 12/29. She is still requiring 2L NC. She does not use supplemental oxygen at home or CPAP at night. However, she has no new complaints at this time. She denies any recent weight change before coming into the hospital. She denies any change in diet, but does report that she does not watch her salt intake. Additionally, she reports her legs feel less swollen than yesterday. She reports she is still producing urine regularly. She reports good compliance with taking her Lasix 40 mg tablet daily, and reports no missed doses over the past several weeks. ROS: Patient endorses dry cough, LE edema, WALKER, and orthopnea. Patient denies fever, NS, chills, dizziness, lightheadedness when walking, headache, chest pain, chest palpitations, pleuritic CP, SOB at rest, abdominal pain, N/V/D, or changes in urinary bowel habits. Additionally, patient reports that her sister is coming in today to bring her in her chemotherapy medication for her leukemia. She missed her regular dose yesterday, and it is currently non-formulary. Review of Systems Review of Systems: See HPI above Physical Exam Physical Exam: General: no acute distress; pleasant affect; non-toxic appearing; well- nourished; cooperative; SpO2 92% on 2L NC HEENT: normocephalic, atraumatic; no scleral icterus; PERRLA w/ EOMs intact; vision and hearing grossly intact Neck: supple; no lymphadenopathy; trachea midline Skin: warm, dry without signs of tenting; no cyanosis; no rashes, bruising, lesions, or erythema noted CV: chest wall NTP; RRR; S1/S2 normal; no murmurs/rubs/gallops; pulses intact and symmetric at radial, DP, and PT Lungs: no acute respiratory distress; symmetrical chest wall expansion; clear breath sounds across all lung valderrama w/o adventitious sounds; no wheezing ABD: Soft, NTP; BS present; no rebound/guarding; no distention MSK: no tics or fasciculations; +1 pitting edema in the lower extremities bilaterally, nonerythematous Neuro: A&Ox3; normal mood and affect; fluent speech; no focal deficits; sensation grossly intact in the LEs b/l Results & Data Results & Data Vital Signs (Past 12 Hours) Vital Signs Temp Pulse Pulse Pulse Pulse Resp BP 12/29/24 07:32 36.7 C 68 18 197/70 H 12/29/24 06:29 192/79 H 12/29/24 01:59 36.5 C 72 18 187/68 H 12/28/24 23:29 36.5 C 55 L 18 12/28/24 22:00 55 L BP Pulse Ox O2 Del Method O2 Flow Rate 12/29/24 07:32 92 Nasal Cannula 2 12/29/24 06:29 12/29/24 01:59 93 Nasal Cannula 2 12/28/24 23:29 172/68 H 93 Nasal Cannula 2 12/28/24 22:00 Laboratory Results Abnormal lab results 12/28/24 12/29/24 Range/Units 13:47 05:59 RDW Std Deviation 49.4 H (36.4-46.3) fL RDW Coeff of Xuan 16.2 H (11.5-14.5) % Neut # (Auto) 7.21 H (1.40-6.50) K/uL Lymph # (Auto) 0.40 L (1.20-3.40) K/uL Cannon # (Auto) 0.75 H (0.11-0.59) K/uL Chloride 109 H (98-107) mmol/L BUN 24 H (6-23) mg/dl Creatinine 1.29 H 1.43 H (0.6-1.2) mg/dl Glucose 115 H (70-99(Fasting)) mg/dl Calcium 8.3 L (8.6-10.3) mg/dl B-Natriuretic Peptide 329 H (0-100) pg/ml Diagnostic Findings Chest X-Ray 12/28/24 13:28 EXAM: Radiograph of the Chest 1 View INDICATION: Chest pain TECHNIQUE: Frontal view of the chest. COMPARISON: 08/07/2023 FINDINGS: Lungs and pleural spaces: There is bilateral basilar airspace consolidation, small pleural effusions and pulmonary vascular congestion. Appearance similar to the prior study. No pneumothorax. Heart: Stable enlarged cardiac shadow. Mediastinum: Normal contour. Bones/joints: No fracture, erosion or dislocation. Soft tissues: No abnormality noted. No radiopaque foreign body noted. Upper abdomen: No abnormality noted. IMPRESSION: CHF. Basilar pneumonia not excluded. ACT 112: N/A Electronically signed by Rowan Reno 12-28-2024 2:08 PM PG Care Time/CCT Total # of Minutes Spent Total Time Spent with Patient: Total time spent is greater than 50% in coordination of care (as documented) at patient's floor/unit and/or counseling patient: Coding [place] [address] SUB INP/OBS CARE 3/50MIN Patient Type Established History Comprehensive Exam Comprehensive Medical Decision Making High Complexity Diagnoses Acute diastolic CHF (congestive heart failure) I50.31 Acute respiratory failure with hypoxia J96.01 Paroxysmal atrial fibrillation I48.0 CML (chronic myelocytic leukemia) C92.10 HTN (hypertension) I10 Hypothyroidism in adult E03.9
[2024-12-29] MEDS: FUROSEMIDE 40 MG/4 ML VIAL IV SCH (16:33)
--- NOTE | 2024-12-29 18:46 | XCELERA ---
[id number]
[2024-12-30 08:05] LABS: BUN Creatinine Ratio 18.1 (10-20); Calcium 8.4 mg/dl (8.6-10.3); Creatinine Clr Calc Pharmacy 45.9 ml/min; Potassium 3.8 mmol/L (3.5-5.1)
--- NOTE | 2024-12-30 16:52 | Hospitalist Progress Note ---
Date of Service December 30, 2024 Assessment & Plan (1) Acute diastolic CHF (congestive heart failure): (2) Acute respiratory failure with hypoxia: (3) Paroxysmal atrial fibrillation: (4) CML (chronic myelocytic leukemia): (5) HTN (hypertension): (6) Hypothyroidism in adult: Plan Progression of WALKER to SOB at rest. Continued stay for acute CHF. #Acute diastolic heart failure BNP elevated at 329 on arrival Echocardiogram on 12/29/2024 revealed LVEF at 66% and no wall motion abnormalities; however did reveal moderate to severe pulmonary hypertension with estimated RVSP 59 mmHg These findings were reviewed with patient at bedside Continue Lasix 40 mg IV BID17 Daily weights Strict I&O monitoring ARELY stockings #Acute respiratory failure with hypoxia Patient is still requiring supplemental oxygen Titrate supplemental oxygen as needed to maintain SpO2 >94% Continuous pulse oximetry #Paroxysmal atrial fibrillation Rate controlled; NSR Continue metoprolol, Eliquis #CML Continue to hold Bosutinib in the setting of acute CHF exacerbation Plan to restart 01/01 #HTN Continue amlodipine, olmesartan, metoprolol Note: Metoprolol down titrated from 75->50mg BID due to bradycardia #Hypothyroidism Continue thyroid supplement Disposition: Continued stay on [facility] with telemetry; gradual improvement in breathing and lower extremity edema since admission; hopeful discharge in the next couple days Heart healthy, low-sodium diet VTE PPx: Eliquis Admission and Anticipated Discharge Date Admission Date: December 28, 2024 Subjective Pattie reports she is doing much better today. She did not have any trouble breathing last night while she was lying flat on her back. Additionally she has had no recurrence of SOB at rest. She does report she still has mild dyspnea on exertion when she gets up to move to the bathroom. She reports she is still having frequent urine production whenever she takes Lasix. She denies feeling lightheaded when she is up moving around. However, patient is still requiring supplemental oxygen. Echocardiogram results from yesterday were discussed with patient at bedside. ROS: Patient endorses dyspnea on exertion and dry cough. Patient denies orthopnea, fever, NS, chills, dizziness, lightheadedness when walking to the bathroom, headache, chest pain, chest palpitations, pleuritic CP, SOB at rest, abdominal pain, N/V/D, or changes in urinary bowel habits. Review of Systems Review of Systems: See HPI above Physical Exam Physical Exam: General: no acute distress; pleasant affect; non-toxic appearing; well- nourished; cooperative; SpO2 93% on 2L NC HEENT: normocephalic, atraumatic; no scleral icterus; PERRLA w/ EOMs intact; vision and hearing grossly intact Neck: supple; no lymphadenopathy; trachea midline Skin: warm, dry without signs of tenting; no cyanosis; no rashes, bruising, lesions, or erythema noted CV: chest wall NTP; RRR; S1/S2 normal; no murmurs/rubs/gallops; pulses intact and symmetric at radial, DP, and PT Lungs: no acute respiratory distress; symmetrical chest wall expansion; diminished breath sounds across all lung valderrama w/o adventitious sounds; no wheezing ABD: Soft, NTP; BS present; no rebound/guarding; no distention MSK: no tics or fasciculations; +1 pitting edema in the lower extremities bilaterally, nonerythematous Neuro: A&Ox3; normal mood and affect; fluent speech; no focal deficits; sensation grossly intact in the LEs b/l Trialed patient off of supplemental oxygen and her SpO2 dropped to 89% on RA Results & Data Results & Data Vital Signs (Past 12 Hours) Vital Signs Temp Pulse Pulse Resp BP Pulse Ox O2 Del Method 12/30/24 15:28 36.5 C 63 20 191/70 H 93 Nasal Cannula 12/30/24 13:24 60 12/30/24 11:40 36.5 C 55 L 18 191/76 H 94 Nasal Cannula 12/30/24 08:00 Nasal Cannula 12/30/24 07:46 36.3 C L 68 18 194/83 H 90 Nasal Cannula 12/30/24 07:00 62 O2 Flow Rate 12/30/24 15:28 2 12/30/24 13:24 12/30/24 11:40 2 12/30/24 08:00 2 12/30/24 07:46 2 12/30/24 07:00 Laboratory Results Abnormal lab results 12/30/24 Range/Units 07:25 Creatinine 1.27 H (0.6-1.2) mg/dl Calcium 8.4 L (8.6-10.3) mg/dl PG Care Time/CCT Total # of Minutes Spent Total Time Spent with Patient: Total time spent is greater than 50% in coordination of care (as documented) at patient's floor/unit and/or counseling patient: Coding [place] [address] SUB INP/OBS CARE 2/35MIN Patient Type Established History Comprehensive Exam Comprehensive Medical Decision Making Moderate Complexity Diagnoses Acute diastolic CHF (congestive heart failure) I50.31 Acute respiratory failure with hypoxia J96.01 Paroxysmal atrial fibrillation I48.0 CML (chronic myelocytic leukemia) C92.10 HTN (hypertension) I10 Hypothyroidism in adult E03.9
[2024-12-31 07:11] LABS: BUN Creatinine Ratio 19.8 (10-20); Calcium 8.4 mg/dl (8.6-10.3); Creatinine Clr Calc Pharmacy 50.3 ml/min; Potassium 3.4 mmol/L (3.5-5.1)
[2024-12-31] MEDS: POTASSIUM CHLORIDE CRTAB 20 MEQ TABCR PO STA (12:04)
--- NOTE | 2024-12-31 19:02 | Hospitalist Progress Note ---
Date of Service December 31, 2024 Assessment & Plan (1) Acute diastolic CHF (congestive heart failure): (2) Acute respiratory failure with hypoxia: (3) Paroxysmal atrial fibrillation: (4) CML (chronic myelocytic leukemia): (5) HTN (hypertension): (6) Hypothyroidism in adult: Plan Progression of WALKER to SOB at rest. Continued stay for acute CHF. #Acute diastolic heart failure BNP elevated at 329 on arrival Echocardiogram on 12/29/2024 revealed LVEF at 66% and no wall motion abnormalities; however did reveal moderate to severe pulmonary hypertension with estimated RVSP 59 mmHg These findings were reviewed with patient at bedside Continue Lasix 40 mg IV BID17; tolerating tolerating diuretics: holding discharge until weaned off oxygen creatinine stable. Daily weights Strict I&O monitoring ARELY stockings #Acute respiratory failure with hypoxia Patient is still requiring supplemental oxygen Titrate supplemental oxygen as needed to maintain SpO2 >94% Continuous pulse oximetry #Paroxysmal atrial fibrillation Rate controlled; NSR Continue metoprolol, Eliquis #CML Continue to hold Bosutinib in the setting of acute CHF exacerbation Plan to restart 01/01 #HTN Continue amlodipine, olmesartan, metoprolol Note: Metoprolol down titrated from 75->50mg BID due to bradycardia #Hypothyroidism Continue thyroid supplement Disposition: Continued stay on [facility] with telemetry; gradual improvement in breathing and lower extremity edema since admission; hopeful discharge in the next couple days Heart healthy, low-sodium diet VTE PPx: Eliquis Admission and Anticipated Discharge Date Admission Date: December 28, 2024 Subjective Patient reports slight improvement with breathing, Physical Exam Physical Exam: General: no acute distress; pleasant affect; HEENT: normocephalic, atraumatic; Neck: supple; no lymphadenopathy; trachea midline Skin: warm, dry CV: RRR; S1/S2 normal; Lungs: no acute respiratory distress; symmetrical chest wall expansion; clear breath sounds across all lung valderrama w/o adventitious sounds; no wheezing ABD: Soft, NTP; BS present; no rebound/guarding; no distention Neuro: A&Ox3; normal mood and affect; Results & Data Results & Data Vital Signs (Past 12 Hours) Vital Signs Temp Pulse Pulse Pulse Resp BP BP 12/31/24 15:40 36.5 C 79 20 178/69 H 12/31/24 13:02 68 12/31/24 12:00 36.6 C 68 16 167/71 H 12/31/24 09:43 12/31/24 07:30 36.6 C 60 15 173/61 H Pulse Ox O2 Del Method O2 Flow Rate 12/31/24 15:40 94 Nasal Cannula 2 12/31/24 13:02 12/31/24 12:00 97 Nasal Cannula 4 12/31/24 09:43 Nasal Cannula 3 12/31/24 07:30 95 Nasal Cannula 4 PG Care Time/CCT Total # of Minutes Spent Total Time Spent with Patient: Total time spent is greater than 50% in coordination of care (as documented) at patient's floor/unit and/or counseling patient: Coding Level of Care Code 15904 SUB INP/OBS CARE 3/50MIN Diagnoses Acute diastolic CHF (congestive heart failure) I50.31 Acute respiratory failure with hypoxia J96.01 Paroxysmal atrial fibrillation I48.0 CML (chronic myelocytic leukemia) C92.10 HTN (hypertension) I10 Hypothyroidism in adult E03.9
--- NOTE | 2025-01-01 06:47 | Hospitalist Progress Note ---
Date of Service December 31, 2024 Assessment & Plan (1) Acute diastolic CHF (congestive heart failure): (2) Acute respiratory failure with hypoxia: (3) Paroxysmal atrial fibrillation: (4) CML (chronic myelocytic leukemia): (5) HTN (hypertension): (6) Hypothyroidism in adult: Plan Progression of WALKER to SOB at rest. Continued stay for acute CHF. #Acute diastolic heart failure BNP elevated at 329 on arrival Echocardiogram on 12/29/2024 revealed LVEF at 66% and no wall motion abnormalities; however did reveal moderate to severe pulmonary hypertension with estimated RVSP 59 mmHg These findings were reviewed with patient at bedside Continue Lasix 40 mg IV BID17; tolerating tolerating diuretics: holding discharge until weaned off oxygen creatinine stable. Daily weights Strict I&O monitoring ARELY stockings #Acute respiratory failure with hypoxia Patient is still requiring supplemental oxygen Titrate supplemental oxygen as needed to maintain SpO2 >94% Continuous pulse oximetry #Paroxysmal atrial fibrillation Rate controlled; NSR Continue metoprolol, Eliquis *Acute kidney failure Creatinine increased from baseline of 1.20 to 1.49; improved Risk Factor(s): Acute diastolic CHF/Lasix IV Treatment: Serial CMP, I&O #CML Continue to hold Bosutinib in the setting of acute CHF exacerbation Plan to restart 01/01 #HTN Continue amlodipine, olmesartan, metoprolol Note: Metoprolol down titrated from 75->50mg BID due to bradycardia #Hypothyroidism Continue thyroid supplement Disposition: Continued stay on [facility] with telemetry; gradual improvement in breathing and lower extremity edema since admission; hopeful discharge in the next couple days Heart healthy, low-sodium diet VTE PPx: Eliquis Admission and Anticipated Discharge Date Admission Date: December 28, 2024 Results & Data Results & Data Vital Signs (Past 12 Hours) Vital Signs Temp Pulse Pulse Resp BP BP Pulse Ox 01/01/25 04:00 36.7 C 67 20 170/65 H 93 12/31/24 22:23 71 12/31/24 22:09 36.7 C 66 18 167/78 H 93 12/31/24 20:45 12/31/24 19:55 36.6 C 89 20 197/74 H 91 O2 Del Method O2 Flow Rate 01/01/25 04:00 Nasal Cannula 3 12/31/24 22:23 12/31/24 22:09 Nasal Cannula 2 12/31/24 20:45 Nasal Cannula 2 12/31/24 19:55 Nasal Cannula 2 PG Care Time/CCT Total # of Minutes Spent Total Time Spent with Patient: Total time spent is greater than 50% in coordination of care (as documented) at patient's floor/unit and/or counseling patient: Coding Level of Care Code None Diagnoses Acute diastolic CHF (congestive heart failure) I50.31 Acute respiratory failure with hypoxia J96.01 Paroxysmal atrial fibrillation I48.0 CML (chronic myelocytic leukemia) C92.10 HTN (hypertension) I10 Hypothyroidism in adult E03.9
[2025-01-01 08:17] LABS: Hematocrit (blood only) 34.4 % (37.0-47.0); Mean Corpuscular Hemoglobin 26.5 pg (25.0-34.0); Mean Corpuscular Volume 82.9 fL (80.0-100.0); Mean Platelet Volume 9.8 fL (9.4-12.4); Platelet Count 273 K/uL (130-400); RDW Coefficient of Variation 15.5 % (11.5-14.5); Red Blood Count 4.15 M/uL (4.20-5.40)
[2025-01-01 08:34] LABS: BUN Creatinine Ratio 18.6 (10-20); C Reactive Protein 1.2 mg/dl (0-0.5); Calcium 8.3 mg/dl (8.6-10.3); Creatinine Clr Calc Pharmacy 50.3 ml/min; Potassium 3.8 mmol/L (3.5-5.1)
--- NOTE | 2025-01-01 10:30 | XRay Report ---
XR chest 1V portable CLINICAL HISTORY: CHF COMPARISON STUDY: 12/28/2024 FINDINGS: No significant interval change has occurred. Cardiomegaly and pulmonary vascular congestion are present. There are bilateral pleural effusions with adjacent airspace opacities that could be co mpressive atelectasis or pneumonia. IMPRESSION: Stable exam with bilateral pleural effusions and bibasilar airspace opacities. ACT 112: Negative or not required by law. Electronically signed by: Shruthi Rivera M.D. 01/01/2025 10:29 AM
[2025-01-01] MEDS: ACETAMINOPHEN 325 MG TAB PO PRN (12:48)
--- NOTE | 2025-01-01 14:49 | Hospitalist Progress Note ---
Date of Service January 01, 2025 Assessment & Plan (1) Acute diastolic CHF (congestive heart failure): Plan: Continue parenteral Lasix. Monitor intake and output. Serial chest x-ray. Cardiac echo reveals mild LVH with normal ejection fraction, moderate left atrial enlargement, moderately severe elevations of right ventricular systolic pressures, and mild mitral regurgitation (2) Acute respiratory failure with hypoxia: Plan: Supplemental oxygen per nasal cannula to maintain saturation greater than 90%. Wean off as tolerated. Incentive spirometry ordered to offset suspected basilar pulmonary atelectasis associated with the effusions (3) Paroxysmal atrial fibrillation: Plan: Currently in normal sinus rhythm. Telemetry. Continue metoprolol and Eliquis (4) CML (chronic myelocytic leukemia): Plan: bosutinib is currently on hold (5) HTN (hypertension): Plan: She currently takes amlodipine, olmesartan, metoprolol. Metoprolol dosage was down titrated however due to mild bradycardia (6) Hypothyroidism in adult: Plan: Stable. Continue current thyroid replacement for now Plan Hopeful discharge to home within the next 2 to 3 days Admission and Anticipated Discharge Date Admission Date: December 28, 2024 Subjective Alert and oriented. No distress. Continued good diuretic effect from IV Lasix. Repeat chest x-ray done today, January 01, continues to show CHF and bilateral effusions. Oxygen requirement is at 3 L. Incentive spirometry ordered to offset suspected basilar pulmonary atelectasis associated with the pleural effusions. Review of Systems 2 Review of Systems: Constitutionalno fever or chills ENTno blurred vision, no double vision, no epistaxis, no sore throat Respiratoryno cough, no wheezing. She does have dyspnea on exertion Cardiacno palpitations, no chest pain, no syncope Deidra nausea, vomiting, diarrhea, melena, hematochezia GUno urinary retention, no urinary incontinence, no dysuria, no hematuria Musculoskeletalno joint pain, no muscle tenderness Skinno bruising, no rashes, no pruritus Neurono isolated weakness, no paresthesia, no weakness Psychno depression, no anxiety Physical Exam 2 Physical Exam: General-alert and oriented x3, no fever, no chills HEENT-head atraumatic and normocephalic, pupils equal and reactive to light, extraocular muscles intact Neck-no lymphadenopathy or thyromegaly, trachea midline Chest-faint bibasilar inspiratory rales. No rhonchi. No wheezing Cardiac-regular rate and rhythm, normal S1 and S2, grade 2/6 pansystolic blowing murmur Abdomen-normal bowel sounds, no hepatosplenomegaly Extremities-no cyanosis, clubbing. Chronic 2+ pitting edema below the knees bilaterally Neuro-cranial nerves II through XII intact, motor and sensory function within normal limits, strength symmetrical, no focal deficits Psych-normal affect, normal mood Results & Data Results & Data Vital Signs (Past 12 Hours) Vital Signs Temp Pulse Resp BP BP Pulse Ox O2 Del Method 01/01/25 11:27 36.4 C L 62 20 152/70 H 98 Nasal Cannula 01/01/25 08:17 36.6 C 68 20 137/56 L 92 Nasal Cannula 01/01/25 07:25 Nasal Cannula 01/01/25 04:00 36.7 C 67 20 170/65 H 93 Nasal Cannula O2 Flow Rate 01/01/25 11:27 3 01/01/25 08:17 3 01/01/25 07:25 2 01/01/25 04:00 3 Laboratory Results 01/01/25 07:09 01/01/25 07:09 PG Care Time/CCT Total # of Minutes Spent Total Time Spent with Patient: Total time spent is greater than 50% in coordination of care (as documented) at patient's floor/unit and/or counseling patient: Coding Level of Care Code 82849 SUB INP/OBS CARE 3/50MIN Diagnoses Acute diastolic CHF (congestive heart failure) I50.31 Acute respiratory failure with hypoxia J96.01 Paroxysmal atrial fibrillation I48.0 CML (chronic myelocytic leukemia) C92.10 HTN (hypertension) I10 Hypothyroidism in adult E03.9
[2025-01-01] MEDS: BOSUTINIB PO SCH ×2 (17:21→18:41)
[2025-01-01] MEDS ORDERED: BOSUTINIB PO SCH (18:30)
[2025-01-02 06:32] LABS: BUN Creatinine Ratio 17.7 (10-20); Calcium 8.6 mg/dl (8.6-10.3); Creatinine Clr Calc Pharmacy 40.5 ml/min; Potassium 3.7 mmol/L (3.5-5.1)
--- NOTE | 2025-01-02 08:24 | XRay Report ---
EXAM: XR chest 1V portable CLINICAL HISTORY: CHF TECHNIQUE: An X-ray image of the chest is obtained in 1 AP projection. COMPARISON: 12/28/2024. FINDINGS: Pulmonary Parenchyma: Bilateral homogeneous opacification mid and lower zones obscuring the costophrenic recesses. Thickening of mild effusion. Heart and Mediastinum: Cardiomegaly with bilateral hilar congestion. No mediastinal widening or masses. No hilar or mediastinal lymphadenopathy. Bony Thorax: Bony thorax appears intact without fractures or deformities. Soft Tissues: Soft tissues overlying the chest wall are unremarkable. IMPRESSION: 1. Bilateral homogeneous opacification of mid and lower zones obscuring the costophrenic recesses. Bilateral mild to moderate pleural effusion. 2. Cardiomegaly with hilar congestion. 3. Comparing the previous x-ray dated 12/28/2024 the findings show interval mild deterioration. Electronically signed by Juan Jose Chavez 01-02-2025 08:24 AM
--- NOTE | 2025-01-02 11:02 | CT Scan Report ---
CT OF THE CHEST WITHOUT IV CONTRAST CLINICAL HISTORY: CHF, bilateral pleural effusions. COMPARISON STUDY: Chest CT August 05, 2023. Chest radiograph performed earlier today. CT DOSE: 348.82 mGy.cm TECHNIQUE: Axial images of the chest were obtained without IV contrast. Images were reviewed in the axial, sagittal, and coronal planes. IV contrast was not administered for this examination. Automat ed exposure control was utilized for the study. A dose lowering technique was utilized adhering to t he principles of ALARA. FINDINGS: No enlarged axillary, mediastinal or hilar lymph nodes are present. There is a trace peric ardial effusion. The heart is mildly enlarged. There is moderate coronary artery calcification. There is no pneumothorax. Moderate left and small right pleural effusions are noted. Subpleural opacity fa vors atelectasis. There is significant left lower lobe volume loss. There is subtle interlobular sept al thickening. A 7 mm right lower lobe nodule on image [id number] of August 05 023. This is likely benign. Central airways are patent. Visualized portions of the upper abdomen are unremarkable on unenhanced exam. IMPRESSION: 1. Moderate left and small right pleural effusions. Associated subpleural opacities favor atelectasi s. 2. Cardiomegaly with a trace pericardial effusion. Moderate coronary artery calcification. 3. Suspected mild pulmonary edema. 4. No change in a 7 mm right lower lobe pulmonary nodule since CT of August 05, 2023. This is likely benign. ACT 112: Negative or not required by law. Electronically signed by: Azeem Hayward M.D. 01/02/2025 11:00 AM
--- NOTE | 2025-01-02 12:59 | Hospitalist Progress Note ---
Date of Service January 02, 2025 Assessment & Plan (1) Acute diastolic CHF (congestive heart failure): Plan: Parenteral Lasix has been decreased to once daily dosing. Continue to monitor intake and output. Serial chest x-ray. Cardiac echo reveals mild LVH with normal ejection fraction, moderate left atrial enlargement, moderately severe elevations of right ventricular systolic pressures, and mild mitral regurgitation. She has bilateral pleural effusions seen on chest x-ray and CT scan. Left thoracentesis has been ordered and will probably be done on January 05. Eliquis has been placed on hold (2) Acute respiratory failure with hypoxia: Plan: Supplemental oxygen per nasal cannula to maintain saturation greater than 90%. Wean off as tolerated. Incentive spirometry ordered to offset suspected basilar pulmonary atelectasis associated with the effusions (3) Paroxysmal atrial fibrillation: Plan: Currently in normal sinus rhythm. Telemetry. Continue metoprolol. Eliquis has been placed on hold for upcoming thoracentesis (4) CML (chronic myelocytic leukemia): Plan: bosutinib therapy. Stable (5) HTN (hypertension): Plan: She currently takes amlodipine, olmesartan, metoprolol. Metoprolol dosage was down titrated however due to mild bradycardia (6) Hypothyroidism in adult: Plan: Stable. Continue current thyroid replacement for now Plan Hopeful discharge to home after thoracentesis has been completed. Admission and Anticipated Discharge Date Admission Date: December 28, 2024 Subjective Alert and pleasant. No distress. She continues to diurese well with parenteral Lasix. Creatinine starting to rise however. Lasix has been decreased to once daily dosing. Chest CT scan reveals bilateral pleural effusions greater on the left. Left thoracentesis has been ordered. Eliquis has been placed on hold. Review of Systems 2 Review of Systems: Constitutionalno fever or chills ENTno blurred vision, no double vision, no epistaxis, no sore throat Respiratoryno cough, no wheezing. She does have dyspnea on exertion Cardiacno palpitations, no chest pain, no syncope Deidra nausea, vomiting, diarrhea, melena, hematochezia GUno urinary retention, no urinary incontinence, no dysuria, no hematuria Musculoskeletalno joint pain, no muscle tenderness Skinno bruising, no rashes, no pruritus Neurono isolated weakness, no paresthesia, no weakness Psychno depression, no anxiety Physical Exam 2 Physical Exam: General-alert and oriented x3, no fever, no chills HEENT-head atraumatic and normocephalic, pupils equal and reactive to light, extraocular muscles intact Neck-no lymphadenopathy or thyromegaly, trachea midline Chest-faint bibasilar inspiratory rales. No rhonchi. No wheezing Cardiac-regular rate and rhythm, normal S1 and S2, grade 2/6 pansystolic blowing murmur Abdomen-normal bowel sounds, no hepatosplenomegaly Extremities-no cyanosis, clubbing. Chronic 2+ pitting edema below the knees bilaterally Neuro-cranial nerves II through XII intact, motor and sensory function within normal limits, strength symmetrical, no focal deficits Psych-normal affect, normal mood Results & Data Results & Data Vital Signs (Past 12 Hours) Vital Signs Temp Pulse Resp BP Pulse Ox O2 Del Method O2 Flow Rate 01/02/25 11:03 36.6 C 69 20 127/71 91 Room Air 01/02/25 08:23 36.7 C 81 20 160/71 H 94 Nasal Cannula 2 01/02/25 08:15 Nasal Cannula 2 01/02/25 04:40 37.1 C 67 18 143/68 H 92 Nasal Cannula 1 Laboratory Results 01/01/25 07:09 01/02/25 05:43 PG Care Time/CCT Total # of Minutes Spent Total Time Spent with Patient: Total time spent is greater than 50% in coordination of care (as documented) at patient's floor/unit and/or counseling patient: Coding Level of Care Code 82290 SUB INP/OBS CARE 3/50MIN Diagnoses Acute diastolic CHF (congestive heart failure) I50.31 Acute respiratory failure with hypoxia J96.01 Paroxysmal atrial fibrillation I48.0 CML (chronic myelocytic leukemia) C92.10 HTN (hypertension) I10 Hypothyroidism in adult E03.9
[2025-01-03 07:03] LABS: BUN Creatinine Ratio 20.8 (10-20); Calcium 8.7 mg/dl (8.6-10.3); Creatinine Clr Calc Pharmacy 39.9 ml/min; Potassium 3.7 mmol/L (3.5-5.1)
--- NOTE | 2025-01-03 07:52 | Hospitalist Progress Note ---
Date of Service January 03, 2025 Assessment & Plan (1) Acute diastolic CHF (congestive heart failure): Plan: Parenteral Lasix has been decreased to once daily dosing. Continue to monitor intake and output. Serial chest x-ray. Cardiac echo reveals mild LVH with normal ejection fraction, moderate left atrial enlargement, moderately severe elevations of right ventricular systolic pressures, and mild mitral regurgitation. She has bilateral pleural effusions seen on chest x-ray and CT scan. Left thoracentesis has been ordered and will probably be done on January 05. Eliquis has been placed on hold Patient with considerable improvement clinically. Will check a repeat chest x- ray tomorrow to evaluate the pleural effusions. Continue to encourage the patient to ambulate as tolerated in the hallways Patient educated on use of incentive spirometer and encouraged to use it regularly throughout the day while awake (2) Acute respiratory failure with hypoxia: Plan: Supplemental oxygen per nasal cannula to maintain saturation greater than 90%. Wean off as tolerated. Incentive spirometry ordered to offset suspected basilar pulmonary atelectasis associated with the effusions Currently weaned down to 2 L/min via nasal cannula. (3) Paroxysmal atrial fibrillation: Plan: Continuous in normal sinus rhythm on telemetry. Continue metoprolol. Eliquis has been placed on hold for possible thoracentesis (4) CML (chronic myelocytic leukemia): Plan: Diagnosed in October 2022 and follows at [facility]. Last seen 11/24/[address] Junior Continues with Bosutinib therapy. Previously failed therapy with dasatinib and imatinib secondary to fluid retention. Patient did have diarrhea today. Will watch this as this is a side effect of tyrosine kinase inhibitors Will also watch routine labs per protocol. Bosutinib may also be contributing to fluid retention (5) HTN (hypertension): Plan: Continue amlodipine, olmesartan, metoprolol. Metoprolol dosage was down titrated however due to mild bradycardia (6) Hypothyroidism in adult: Plan: Continue current thyroid replacement for now at home dose (7) Pulmonary nodule: Plan: RLL 7 mm pulmonary nodule. Unchanged from prior CT. F/U per oncology at [facility] Plan Hopeful discharge to home after thoracentesis has been completed. Admission and Anticipated Discharge Date Admission Date: December 28, 2024 Supervising Physician Co-Signing Physician Notes Attending Attestation - Chart reviewed, care plan d/w POLLO Baldwinr. I agree w/ the rai components of his documentation. Brandon Qureshi MD Subjective Attending: Dr. Qureshi This is a 69-year-old female that was admitted 12/28/2024 for diastolic congestive heart failure and hypoxia. Furosemide dose is decreased secondary to increasing creatinine. Chest CT revealed bilateral pleural effusions left greater than right. Pulmonary has been asked to perform left thoracentesis. Anticoagulation is currently held. Last dose administered 01/03/2020 5 PM. Patient is doing much better. She is now down to 2 L/min by nasal cannula. She reports that she is not on home oxygen. She has been ambulating in the hallways. She is currently 8.5L negative with diuresis. She has no acute complaints Review of Systems 2 Review of Systems: A total of 10 systems was reviewed and is negative other than as listed in the HPI Physical Exam 2 Physical Exam: GENERAL : No acute distress EYES: No icterus, gaze conjugate NOSE: No evidence of epistaxis MOUTH: No lesions or candidiasis NECK: Supple LUNGS: Minimally decreased lung sounds bilaterally. CTA B/L, no wheezes, rales or rhonchi inspirational effort HEART: Regular, rate controlled. Telemetry reviewed. Patient is in normal sinus rhythm. ABDOMEN: Soft, NT, ND, BS Present EXTREMITIES: No LE edema, pedal pulses intact and equal bilaterally tibial region is sensitive to palpation bilaterally. NEURO: A&OX3 Results & Data Results & Data Vital Signs (Past 12 Hours) Vital Signs Temp Pulse Pulse Resp BP Pulse Ox O2 Del Method 01/03/25 07:00 81 01/03/25 04:00 36.7 C 75 18 148/70 H 94 Room Air 01/02/25 23:00 36.8 C 68 18 127/65 95 Nasal Cannula 01/02/25 21:57 69 01/02/25 21:57 Nasal Cannula O2 Flow Rate 01/03/25 07:00 01/03/25 04:00 01/02/25 23:00 2 01/02/25 21:57 01/02/25 21:57 1.5 Laboratory Results 01/01/25 07:09 01/03/25 06:05 Diagnostic Findings Chest X-Ray 01/02/25 07:28 EXAM: XR chest 1V portable CLINICAL HISTORY: CHF TECHNIQUE: An X-ray image of the chest is obtained in 1 AP projection. COMPARISON: 12/28/2024. FINDINGS: Pulmonary Parenchyma: Bilateral homogeneous opacification mid and lower zones obscuring the costophrenic recesses. Thickening of mild effusion. Heart and Mediastinum: Cardiomegaly with bilateral hilar congestion. No mediastinal widening or masses. No hilar or mediastinal lymphadenopathy. Bony Thorax: Bony thorax appears intact without fractures or deformities. Soft Tissues: Soft tissues overlying the chest wall are unremarkable. IMPRESSION: 1. Bilateral homogeneous opacification of mid and lower zones obscuring the costophrenic recesses. Bilateral mild to moderate pleural effusion. 2. Cardiomegaly with hilar congestion. 3. Comparing the previous x-ray dated 12/28/2024 the findings show interval mild deterioration. Electronically signed by Juan Jose Chavez 01-02-2025 08:[address] 01/02/25 09:47 CT OF THE CHEST WITHOUT IV CONTRAST CLINICAL HISTORY: CHF, bilateral pleural effusions. COMPARISON STUDY: Chest CT August 05, 2023. Chest radiograph performed earlier today. CT DOSE: 348.82 mGy.cm TECHNIQUE: Axial images of the chest were obtained without IV contrast. Images were reviewed in the axial, sagittal, and coronal planes. IV contrast was not administered for this examination. Automated exposure control was utilized for the study. A dose lowering technique was utilized adhering to the principles of ALARA. FINDINGS: No enlarged axillary, mediastinal or hilar lymph nodes are present. There is a trace pericardial effusion. The heart is mildly enlarged. There is moderate coronary artery calcification. There is no pneumothorax. Moderate left and small right pleural effusions are noted. Subpleural opacity favors atelectasis. There is significant left lower lobe volume loss. There is subtle interlobular septal thickening. A 7 mm right lower lobe nodule on image [address] of August 05, 2023. This is likely benign. Central airways are patent. Visualized portions of the upper abdomen are unremarkable on unenhanced exam. IMPRESSION: 1. Moderate left and small right pleural effusions. Associated subpleural opacities favor atelectasis. 2. Cardiomegaly with a trace pericardial effusion. Moderate coronary artery calcification. 3. Suspected mild pulmonary edema. 4. No change in a 7 mm right lower lobe pulmonary nodule since CT of August 05, 2023. This is likely benign. ACT 112: Negative or not required by law. Electronically signed by: Azeem Hayward M.D. 01/02/2025 11:00 AM PG Care Time/CCT Total # of Minutes Spent Total Time Spent with Patient: Total time spent is greater than 50% in coordination of care (as documented) at patient's floor/unit and/or counseling patient: Coding Level of Care Code 40574 SUB INP/OBS CARE 2/35MIN Diagnoses Acute diastolic CHF (congestive heart failure) I50.31 Acute respiratory failure with hypoxia J96.01 Paroxysmal atrial fibrillation I48.0 CML (chronic myelocytic leukemia) C92.10 HTN (hypertension) I10 Hypothyroidism in adult E03.9 Pulmonary nodule R91.1
[2025-01-03] MEDS: FUROSEMIDE 40 MG/4 ML VIAL IV SCH (08:18)
--- NOTE | 2025-01-04 07:39 | Hospitalist Progress Note ---
Date of Service January 04, 2025 Assessment & Plan (1) Acute diastolic CHF (congestive heart failure): Plan: Parenteral Lasix had been decreased to once daily dosing and was held this morning due to slight bump in creatinine. Continue to monitor intake and output. Chest x-ray this morning with mild decrease in bilateral pleural effusions Echocardiogram reveals mild LVH with normal ejection fraction, moderate left atrial enlargement, moderately severe elevations of right ventricular systolic pressures, and mild mitral regurgitation. Left thoracentesis has been ordered and requested for January 05. Eliquis has been placed on hold. Last dose administered 01/03/2020 5 PM. (2) Acute respiratory failure with hypoxia: Plan: Supplemental oxygen per nasal cannula to maintain saturation greater than 90%. Patient has been weaned off supplemental oxygen at rest. She is desaturated to 83% with ambulation. Will most likely need a two-step prior to discharge Continue Incentive spirometry Etiology appears to be strictly fluid overload with resultant pleural effusions (3) Paroxysmal atrial fibrillation: Plan: Continuous in normal sinus rhythm on telemetry. Continue metoprolol. Eliquis has been placed on hold for possible thoracentesis Patient has been in normal sinus rhythm with no tachyarrhythmias (4) CML (chronic myelocytic leukemia): Plan: Diagnosed in October 2022 and follows at [facility]. Last seen 11/24/[address] Junior Continues with Bosutinib therapy. Previously failed therapy with dasatinib and imatinib secondary to fluid retention. Patient did have diarrhea. Monitor as this is a side effect of tyrosine kinase inhibitors Will also watch routine labs per protocol. Bosutinib may also be contributing to fluid retention (5) HTN (hypertension): Plan: Continue amlodipine, olmesartan, metoprolol. Metoprolol dosage was down titrated however due to mild bradycardia (6) Hypothyroidism in adult: Plan: Continue current thyroid replacement for now at home dose (7) Pulmonary nodule: Plan: RLL 7 mm pulmonary nodule. Unchanged from prior CT. F/U per oncology at [facility] Plan Hopeful discharge to home after thoracentesis has been completed. Continue with hypoxia with ambulation. Recommend 2-step prior to discharge Admission and Anticipated Discharge Date Admission Date: December 28, 2024 Supervising Physician Co-Signing Physician Notes Attending Attestation - Chart reviewed, care plan d/w POLLO Lopez. I agree w/ the rai components of his documentation. Brandon Qureshi MD Subjective Attending: Dr. Qureshi This is a 69-year-old female that was admitted 12/28/2024 for diastolic congestive heart failure and hypoxia. Furosemide dose is decreased secondary to increasing creatinine. Chest CT revealed bilateral pleural effusions left greater than right. Pulmonary has been asked to perform left thoracentesis. Anticoagulation is currently held. Last dose administered 01/02/2025 PM. Patient has been weaned to room air at rest but desaturated to 83% with ambulation. She denies SOB. No chest pain or tightness. Furosemide held today Review of Systems 2 Review of Systems: A total of 10 systems was reviewed and is negative other than as listed in the HPI Physical Exam 2 Physical Exam: GENERAL : No acute distress EYES: No icterus, gaze conjugate NOSE: No evidence of epistaxis MOUTH: No lesions or candidiasis NECK: Supple LUNGS: Decreased breath sounds at the bilateral bases. Otherwise, CTA B/L, no wheezes, rales or rhonchi HEART: Regular, rate controlled ABDOMEN: Soft, NT, ND, BS Present EXTREMITIES: No LE edema, pedal pulses intact NEURO: A&OX3 Results & Data Results & Data Vital Signs (Past 12 Hours) Vital Signs Temp Pulse Pulse Resp BP BP Pulse Ox 01/04/25 07:00 66 01/04/25 03:53 36.7 C 68 18 134/63 94 01/03/25 23:30 36.7 C 71 18 117/62 94 01/03/25 23:14 18 95 01/03/25 22:01 95 H O2 Del Method O2 Flow Rate 01/04/25 07:00 01/04/25 03:53 Nasal Cannula 1 01/03/25 23:30 Nasal Cannula 1 01/03/25 23:14 Nasal Cannula 0.5 01/03/25 22:01 Laboratory Results 01/01/25 07:09 Diagnostic Findings Chest X-Ray 01/04/25 07:38 HISTORY: Bilateral pleural effusions. TECHNIQUE: Portable AP radiograph of the chest COMPARISON: Chest radiograph dated 01/02/2025. FINDINGS: Moderate pleural effusions appear mildly decreased in size since the prior study. There is vascular congestion. Bilateral lower lung opacities. Cardiomegaly. Left-sided aortic arch. Midline trachea. No acute osseous abnormality. environmental monitoring technician leads overlie the chest. Included upper abdomen is unremarkable. IMPRESSION: * Moderate pleural effusions appear mildly decreased in size since the prior study. Adjacent bilateral lower lung opacities may represent associated compressive atelectasis or pneumonia. * Cardiomegaly with vascular congestion suggesting CHF. Electronically signed by Dagoberto Lemons 01-04-2025 08:55 AM PG Care Time/CCT Total # of Minutes Spent Total Time Spent with Patient: Total time spent is greater than 50% in coordination of care (as documented) at patient's floor/unit and/or counseling patient: Coding Level of Care Code 88271 SUB INP/OBS CARE 2/35MIN Diagnoses Acute diastolic CHF (congestive heart failure) I50.31 Acute respiratory failure with hypoxia J96.01 Paroxysmal atrial fibrillation I48.0 CML (chronic myelocytic leukemia) C92.10 HTN (hypertension) I10 Hypothyroidism in adult E03.9 Pulmonary nodule R91.1
[2025-01-04 07:47] LABS: BUN Creatinine Ratio 22.3 (10-20); Calcium 8.6 mg/dl (8.6-10.3); Creatinine Clr Calc Pharmacy 38.1 ml/min; Magnesium 2.1 mg/dl (1.7-2.4); Potassium 3.5 mmol/L (3.5-5.1)
--- NOTE | 2025-01-04 08:55 | XRay Report ---
HISTORY: Bilateral pleural effusions. TECHNIQUE: Portable AP radiograph of the chest COMPARISON: Chest radiograph dated 01/02/2025. FINDINGS: Moderate pleural effusions appear mildly decreased in size since the prior study. There is vascular congestion. Bilateral lower lung opacities. Cardiomegaly. Left-sided aortic arch. Midline trachea. No acute osseous abnormality. color television console monitor leads overlie the chest. Included upper abdomen is unremarkable. IMPRESSION: * Moderate pleural effusions appear mildly decreased in size since the prior study. Adjacent bilateral lower lung opacities may represent associated compressive atelectasis or pneumonia. * Cardiomegaly with vascular congestion suggesting CHF. Electronically signed by Dagoberto Lemons 01-04-2025 08:55 AM
[2025-01-05 04:51] VITALS: O2SAT 95
[2025-01-05 09:51] LABS: Basophils # (auto) 0.08 K/uL (0.00-0.20); Basophils % (auto) 1.1 %; Eosinophils % (auto) 4.3 %; Hematocrit (blood only) 40.2 % (37.0-47.0); Hemoglobin 12.9 g/dl (12.0-16.0); Immature Granulocytes # (auto) 0.02 K/uL (0.01-0.20); Immature Granulocytes % (auto) 0.3 %; Lymphocytes # (auto) 0.59 K/uL (1.20-3.40); Lymphocytes % (auto) 8.4 %; Mean Corpuscular Hemoglobin 26.8 pg (25.0-34.0); Mean Corpuscular Hgb Conc 32.1 g/dL (32.0-36.0); Mean Corpuscular Volume 83.4 fL (80.0-100.0); Monocytes # (auto) 0.61 K/uL (0.11-0.59); Monocytes % (auto) 8.7 %; Neutrophils # (auto) 5.45 K/uL (1.40-6.50); Neutrophils % (auto) 77.2 %; Platelet Count 351 K/uL (130-400); RDW Coefficient of Variation 15.4 % (11.5-14.5); RDW Standard Deviation 47.1 fL (36.4-46.3); Red Blood Count 4.82 M/uL (4.20-5.40); White Blood Count 7.05 K/ul (4.8-10.8)
[2025-01-05 10:01] LABS: BUN Creatinine Ratio 21.5 (10-20); Calcium 9.1 mg/dl (8.6-10.3); Creatinine Clr Calc Pharmacy 34.6 ml/min; Potassium 3.7 mmol/L (3.5-5.1)
[2025-01-05 11:30] VITALS: RESP 16; TEMP 97.2
--- NOTE | 2025-01-05 11:34 | XRay Report ---
XR chest 1V not portable CLINICAL HISTORY: s/p left thora COMPARISON STUDY: 08/05/2023 FINDINGS: Stable prominent cardiomegaly with mild pulmonary vascular congestion. There is a small res idual right pleural effusion. No pleural effusion seen on the left. No pneumothorax. IMPRESSION: No pneumothorax. ACT 112: Negative or not required by law. Electronically signed by: Leonidas Lopez M.D. 01/05/2025 11:33 AM
--- NOTE | 2025-01-05 12:52 | Discharge Summary ---
Discharge Summary Date of Service January 05, 2025 Principal Dx & Hospital Course #1 = Principal Diagnosis (1) Acute diastolic CHF (congestive heart failure): Treated while hospitalized with parenteral Lasix therapy. At discharge Lasix will be increased to 40 mg twice a day. Metoprolol succinate has been switched over to metoprolol tartrate 50 mg twice daily. She underwent left sided thoracentesis earlier today, January 05, without complication. She is now on room air. Cardiac echo reveals mild LVH with normal ejection fraction, moderate left atrial enlargement, moderately severe elevations of right ventricular systolic pressures, and mild mitral regurgitation. Eliquis was placed on hold several days ago and will be restarted this evening. (2) Acute respiratory failure with hypoxia: Resolved. She is now on room air. Incentive spirometry was ordered to offset suspected basilar pulmonary atelectasis associated with the effusions (3) Paroxysmal atrial fibrillation: Currently in normal sinus rhythm. Telemetry. Continue metoprolol which has been switched from the succinate formulation to tartrate formulation. Eliquis was placed on hold for the thoracentesis and will be restarted this evening, January 05. (4) CML (chronic myelocytic leukemia): bosutinib therapy. Stable (5) HTN (hypertension): She currently takes amlodipine, olmesartan, metoprolol. Metoprolol dosage was down titrated however due to mild bradycardia and switch from the succinate formulation to tartrate. (6) Hypothyroidism in adult: Stable. Continue current thyroid replacement for now Plan Home today, January 05. Admission HPI Per Admitting Provider 69-year-old female with a history of diastolic congestive heart failure. For the past several days she has noticed dyspnea on exertion and orthopnea. She presents to the ED for evaluation with evidence of congestive heart failure. She has mild acute hypoxic respiratory failure and is currently requiring 2 L oxygen per nasal cannula. She refuses placement of Champagne catheter or pure wick. Intake and output needs to be followed closely nevertheless. She will be given intravenous Lasix. Cardiac echo will be obtained. Previous cardiac echo was done in July 2023. She denies palpitations, chest pain, syncope Discharge Exam General-alert and oriented x3, no fever, no chills HEENT-head atraumatic and normocephalic, pupils equal and reactive to light, extraocular muscles intact Neck-no lymphadenopathy or thyromegaly, trachea midline Chest-clear to auscultation and percussion. No inspiratory rales. No rhonchi. No wheezing Cardiac-regular rate and rhythm, normal S1 and S2, grade 2/6 pansystolic blowing murmur Abdomen-normal bowel sounds, no hepatosplenomegaly Extremities-no cyanosis, clubbing. Chronic pitting edema below the knees bilaterally has lessened with Lasix diuresis Neuro-cranial nerves II through XII intact, motor and sensory function within normal limits, strength symmetrical, no focal deficits Psych-normal affect, normal mood Discharge Plan Discharge Items Patient Disposition: Home - Self-Care Reason For Visit: CHF Discharge Diagnosis: Acute diastolic congestive heart failure with bilateral pleural effusions, acute hypoxic respiratory failure Activity: Resume your previous activity Non-emergency contact: Primary Care Provider Call non-emergency contact if: your symptoms worsen Follow-up/Referrals: Aristides Narayanan MD [Primary Care Provider] - Diet: Regular and Heart Healthy Addtl Attending Provider Instructions: Take Lasix 40 mg twice daily. Metoprolol succinate has been switched to metoprolol tartrate 50 mg twice daily. The dosage has been lowered slightly to alleviate low heart rate. New prescriptions have been sent to your pharmacy. All other medications remain the same. Resume taking Eliquis this evening. Pending Studies at Discharge: No Stand-Alone Forms: My [facility], Smoking Cessation Medications and DC Order Prescriptions: New metoprolol tartrate 50 mg Tablet 50 mg PO BID Qty: 60 0RF furosemide 40 mg tablet 40 mg PO BID Qty: 60 0RF Continued amlodipine-olmesartan 5-40 mg tablet 1 tab PO DAILY Qty: 30 2RF atorvastatin 40 mg tablet 40 mg PO HS Qty: 90 1RF Bosulif 400 mg tablet 400 mg PO QPM Rx Instructions: must administer with a meal/food. Taken at 6:30PM Eliquis 5 mg tablet 5 mg PO BID Qty: 60 11RF levothyroxine 150 mcg tablet 150 mcg PO DAILY Patient Comments: 150mcg 6 days 1 1/2 tabs once a week Discontinued furosemide 40 mg tablet 40 mg PO DAILY Qty: 30 5RF metoprolol succinate 25 mg tablet extended release 24 hr 75 mg PO BID 30 Days Qty: 180 6RF Discharge Orders: Discharge Order- CHF (Routine); Ordered 01/05/25 Ordered By: Dimitris Cates Admission Data Admit Date/Time: 12/28/24 15:24 Attending Provider: Dimitris Cates Admit Provider: Dimitris Cates Primary Care Provider: Aristides Narayanan Other Providers: Dimitris Cates Hospital Stay Data Consultations 12/28/24 14:41 ED Decision to Admit Stat Diagnostic Imagining Performed 01/02/25 09:47 CT chest diagnostic wo con Urgent 01/05/25 07:00 IR thoracentesis wo tube US Routine Pending Results Patient Have Any Pending Studies at Discharge: No Discharge Instructions Given to Patient (Per Discharging Provider) Take Lasix 40 mg twice daily. Metoprolol succinate has been switched to metoprolol tartrate 50 mg twice daily. The dosage has been lowered slightly to alleviate low heart rate. New prescriptions have been sent to your pharmacy. All other medications remain the same. Resume taking Eliquis this evening. Total Time Total Time Spent Total Time Spent (In Minutes): 45 minutes Coding Level of Care Code 21726 INP/OBS DISCH >30 MIN Diagnoses Acute diastolic CHF (congestive heart failure) I50.31 Acute respiratory failure with hypoxia J96.01 Paroxysmal atrial fibrillation I48.0 CML (chronic myelocytic leukemia) C92.10 HTN (hypertension) I10 Hypothyroidism in adult E03.9
[2025-01-05 13:31] VITALS: BP 139/63; PULSE 64
--- NOTE | 2025-01-05 15:00 | Ultrasound Report ---
ULTRASOUND-GUIDED LEFT THORACENTESIS CLINICAL HISTORY: Left pleural effusion PROCEDURE: Procedure and risks were explained. Informed consent was obtained. A final timeout was com pleted. The left posterior thorax was prepped and draped in sterile fashion. 1% lidocaine was utilize d for skin anesthesia. Utilizing ultrasound guidance, a 5 Telugu safety centesis catheter was advanced into the left pleural effusion. Ultrasound images were obtained. A total of 500 mL of yellow pleural fluid was removed and discarded. The catheter was removed and Band-Aid applied. The patient tolerated the procedure well. A chest x-ray will be obtained following the right thoracentesis. IMPRESSION: Ultrasound-guided left thoracentesis as above. Performed, dictated, and signed by Nehemias Moreira PA-C; to be co-signed by Dr. Leonidas Lopez. Electronically signed by: Leonidas Lopez M.D. 01/05/2025 4:10 PM
== END 2025-01-05 14:45 | disposition home or self-care (01) | DRG 291 ==
LOC: SUATTDRO → ED 13:02 → 2N 15:24 → SUATTDRO 15:24 → 2N 18:04

== ENCOUNTER 2025-06-24 12:08 | Inpatient (IN) ==
[2025-06-24 13:02] LABS: Hematocrit (blood only) 37.0 % (37.0-47.0); Hemoglobin 12.0 g/dl (12.0-16.0); Immature Granulocytes # (auto) 0.03 K/uL (0.01-0.20); Immature Granulocytes % (auto) 0.3 %; Mean Corpuscular Hemoglobin 26.5 pg (25.0-34.0); Mean Corpuscular Volume 81.7 fL (80.0-100.0); Platelet Count 328 K/uL (130-400); RDW Standard Deviation 47.8 fL (36.4-46.3); Red Blood Count 4.53 M/uL (4.20-5.40); White Blood Count 8.61 K/ul (4.8-10.8)
[2025-06-24 13:22] LABS: Alanine Aminotransferase 14.0 U/L (7-52); Albumin Globulin Ratio 1.1 (0.9-2); Alkaline Phosphatase 120.0 U/L (34-104); Anion Gap 10.0 (3-11); Bilirubin,Total 0.7 mg/dl (0.2-1.0); Blood Urea Nitrogen 39.0 mg/dl (6-23); Calcium 9.6 mg/dl (8.6-10.3); Carbon Dioxide 19.0 mmol/L (21-32); Chloride 112.0 mmol/L (98-107); Creatinine Clr Calc Pharmacy 28.9 ml/min; Globulin 3.8 gm/dl (2.5-4.0); Glucose 104.0 mg/dl (70-99(Fasting)); Potassium 4.1 mmol/L (3.5-5.1); Sodium 141.0 mmol/L (136-145); Total Protein 7.9 gm/dl (6.0-8.3)
[2025-06-24 13:31] LABS: INR 1.2 (0.9-1.1); Partial Thromboplastin Time 36 Seconds (21-31); Prothrombin Time 12.6 Seconds (9.0-12.0)
--- NOTE | 2025-06-24 13:51 | XRay Report ---
XR chest 1V portable CLINICAL HISTORY: Chest pain, nonspecific COMPARISON STUDY: 06/15/2025 FINDINGS: The heart is enlarged. There is persistent pulmonary vascular congestion with bilateral ple ural effusions and associated bibasilar atelectasis/consolidation. IMPRESSION: 1. Cardiomegaly and mild pulmonary vascular congestion 2. Slight interval increase in the bilateral pleural effusions with associated bibasilar atelectasis/ consolidation ACT 112: Negative or not required by law. Electronically signed by: Brett Dash M.D. 06/24/2025 1:50 PM
[2025-06-24 14:16] LABS: Influenza A virus by PCR Negative (Neg); Influenza B virus by PCR Negative (Neg); SARS CoV2 RNA(COVID-19) Ceph NEGATIVE (Negative)
[2025-06-24] MEDS: FUROSEMIDE 40 MG/4 ML VIAL IV ONE (14:23)
--- NOTE | 2025-06-24 15:00 | History & Physical Report ---
Date of Service June 24, 2025 Assessment & Plan (1) Acute on chronic heart failure with preserved ejection fraction: (2) Pleural effusion: (3) Hypoxia: Plan 70 year old female with HFpEF and CML presents with worsening shortness of breath Acute on chronic HFpEF / bilateral pleural effusions / hypoxia / moderate to severe pulmonary hypertension On room air at baseline, currently on 4LPm O2 Urine sodium > 70 2 hours after Lasix however given significant edema and possible vascular congestion causing worsening renal function will increase Lasix to 40mg IV BID with second dose today (she received this dose in December therefore if nothing has changed on her TTE if she cannot tolerate this it fits with bosutinib being the underlying issue) and monitor renal function closely. If renal function getting worse with diuretics which was the heart failure clinics suspicion then suspect her underlying cause may be the bosutinib and will have to consult oncology for their recommendations if Cr rising despite diuretics. Will hold Eliquis in case need for thoracentesis similar to December TTE December 2024 - LVEF 60-65%, mod-severe pulm HTN 59 mmHg, no change from 06/2023 (she had b/l pleural effusions in 06/2023 although they were much better at that time). She is due to repeat TTE per cardiology notes therefore will get this done as an inpatient EMMETT She really didn't have renal issues until after her December hospitalization and th e increased Lasix dosing since that time, if not renal vascular congestion my main concern would be her bosutinib but I'd like to prove it doesn't improve with diuretics first before having to change her CML medication again as her renal function initially improved with diuretics in December (although we were also holding her CML medication so possibly it was that and the same thing hopefully will occur again). Urine Protein/Cr ratio ordered Baseline Cr 1.13 in December. Hypertension Olmesartan switched to losartan per hospital formulary Continue amlodipine and metoprolol tartrate Lasix as above CML Holding bosutinib for now as possible cause of her pleural effusions Hypothyroidism TSH WNL in May 2025, continue levothyroxine 175 mcg PO daily VTE Prophylaxis - holding Eliquis due to possible need for thoracentesis pending clinically course, encourage ambulation Disposition - admit to med/tele Admission and Anticipated Discharge Date Admission Date: June 24, 2025 History of Present Illness Chief Complaint: Shortness of breath Primary Care Provider: MD Pattie Montelongo Barlett is a 70 year old female with heart failure with preserved ejection fraction and CML who presents to the ER with shortness of breath. She reports this has been ongoing for a couple of months but much worse since her diuretics were reduced due to concern for worsening azotemia. No chest pain. Having orthopnea but no PND. She feels her leg swelling is at baseline. She had a similar episode in December 2024 and bosutinib was placed on hold during the majority of that admission and her Cr was improving. She was receiving Lasix 40mg IV BID initially however on the last few days of admission was discontinued entirely due to rising Cr which does not really have appeared to have recovered since then. She was discharged on Lasix 40mg PO BID up from daily. Per oncology notes (02/2025) she was first diagnosed with CML 2022. Initially treated with imatinib for 2 months after developing a rash. Restarting caused pruritic and intermittent diarrhea. Dasatinib caused pleural effusions and prur itus. In August 2023 she was started on her current medication bosutinib. Allergies Allergy/AdvReac Type Severity Reaction Status Date / Time imatinib Allergy Intermediate horrible Unverified 06/24/25 15:07 rash and itching all over Home Medications Medication Instructions Recorded Confirmed Type bosutinib 400 mg tablet (Bosulif) 400 mg PO QPM 11/05/23 06/24/25 History metoprolol tartrate 50 mg tablet 50 mg PO BID #60 tabs 01/30/25 06/24/25 Rx atorvastatin 40 mg tablet 40 mg PO HS #90 tabs 04/22/25 06/24/25 Rx apixaban 5 mg tablet (Eliquis) 5 mg PO BID #60 tabs 06/11/25 06/24/25 Rx amlodipine 5 mg-olmesartan 40 mg 1 tab PO QAM 06/24/25 06/24/25 History tablet cholecalciferol (vitamin D3) 1,250 1,250 mcg PO WK 06/24/25 06/24/25 History mcg (50,000 unit) capsule furosemide 40 mg tablet 40 mg PO QAM 06/24/25 06/24/25 History levothyroxine 175 mcg capsule 175 mcg PO DAILYBB 06/24/25 06/24/25 History Past Med/Surg History Problem List (Updated 06/24/25 @ 18:50 by Brandon Espana MD) Acute on chronic heart failure with preserved ejection fraction Hypoxia (Acute) Pleural effusion (Acute) CHF (congestive heart failure) (Acute) Vitamin D deficiency Pulmonary hypertension Mitral regurgitation (HFpEF) heart failure with preserved ejection fraction Pulmonary nodule CHF exacerbation (Acute) Acute respiratory failure with hypoxia Acute diastolic CHF (congestive heart failure) Venous insufficiency Hypothyroidism Chronic anticoagulation Tricuspid regurgitation Edema Right lower lobe pulmonary nodule Pleural effusion, bilateral Pleural effusion on right Pleural effusion on left Pleural effusion (Acute) 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) Elevated WBC count Bilateral foot pain (Chronic) Right leg swelling (Acute) Right leg pain Right foot pain (Acute) Ankle pain, right (Acute) Hypercholesterolemia (Chronic) Hyperglycemia (Chronic) Medical History Paroxysmal atrial fibrillation CML (chronic myelocytic leukemia) Hypothyroidism in adult HTN (hypertension) Elevated TSH Atrial fibrillation with controlled ventricular rate Atrial fibrillation, new onset Superficial thrombophlebitis Hyperprolactinemia Herpes zoster Diverticulosis Carpal tunnel syndrome Surgical History History of hysteroscopy H/O oral surgery Family History Other Prostate cancer Denies family history of Ovarian cancer Breast cancer Lung cancer Colorectal cancer Social History Smoking Status: Never smoker Second Hand Exposure: No; Do You Dip or Chew Tobacco: No; Hx Alcohol Use: No Hx Substance Use: No Preferred Language: Occitan Communication Ability: Effective Pressing Machine Tender Required: No Beliefs That Will Affect Care: None marital status: Single Current Living Situation: Alone current occupational status: retired Feels Safe at Home: Yes Safety Concerns: Feels Safe At This Time Childhood Exposure to Second-Hand Smoke: No Diet: regular Dental Care, Regularly: Yes Physical Activity Frequency: Does not Exercise Seatbelt Use: always Sunscreen Use: Yes Assistive Devices: None Review of Systems Review of Systems: All systems reviewed & are unremarkable except as noted in HPI & below Physical Exam Constitutional: WD/WN, vitals as above ENMT: external ear and nose normal, oropharynx normal Respiratory: normal respiratory effort; no respiratory distress Auscultation: + diminished lung sounds (bibasal); no crackles Cardiovascular: Rate/Rhythm: regular rate and regular rhythm Heart Sounds: no murmur Extremities: + pedal edema (2+ b/l pitting equal) Gastrointestinal (Abdomen): normal bowel sounds, soft, nontender, no hepatosplenomegaly Musculoskeletal: no cyanosis or clubbing, extremities motor strength 5/5 Skin: no rashes, warm and dry (skin depigmentation over face and hands) Neurologic: moves all extremities and awake; not confused Psychiatric: A+Ox3, euthymic affect Results & Data Results & Data Vital Signs (Past 12 Hours) Vital Signs Temp Pulse Pulse Resp BP BP Pulse Ox 06/24/25 14:24 171/77 H 06/24/25 13:26 96 06/24/25 13:26 59 L 20 174/78 H 96 06/24/25 13:26 06/24/25 13:13 82 06/24/25 12:37 82 L 06/24/25 12:25 36.5 C 65 18 207/79 H 90 O2 Del Method O2 Flow Rate 06/24/25 14:24 06/24/25 13:26 06/24/25 13:26 06/24/25 13:26 Room Air 06/24/25 13:13 06/24/25 12:37 Room Air 0 06/24/25 12:25 Room Air Laboratory Results Abnormal lab results 06/24/25 Range/Units 12:48 RDW Std Deviation 47.8 H (36.4-46.3) fL RDW Coeff of Xuan 16.1 H (11.5-14.5) % Neut # (Auto) 7.00 H (1.40-6.50) K/uL Lymph # (Auto) 0.49 L (1.20-3.40) K/uL Dubois # (Auto) 0.85 H (0.11-0.59) K/uL PT 12.6 H (9.0-12.0) Seconds INR 1.2 H (0.9-1.1) APTT 36 H (21-31) Seconds Chloride 112 H (98-107) mmol/L Carbon Dioxide 19 L (21-32) mmol/L BUN 39 H (6-23) mg/dl Creatinine 1.98 H (0.6-1.2) mg/dl Glucose 104 H (70-99(Fasting)) mg/dl Alkaline Phosphatase 120 H (34-104) U/L Troponin I High Sens 23.5 H (0-14) pg/ml B-Natriuretic Peptide 305 H (0-100) pg/ml Diagnostic Findings XR chest 1V portable CLINICAL HISTORY: Chest pain, nonspecific COMPARISON STUDY: 06/15/2025 FINDINGS: The heart is enlarged. There is persistent pulmonary vascular congestion with bilateral pleural effusions and associated bibasilar atelectasis/consolidation. IMPRESSION: 1. Cardiomegaly and mild pulmonary vascular congestion 2. Slight interval increase in the bilateral pleural effusions with associated bibasilar atelectasis/consolidation Medications Administered ER Medications Given: Lasix 40mg IV ECG Rate (beats per minute): 61 Rhythm: sinus with SA Findings: no acute ischemic change Comparison ECG Date: from (December 28, 2024) Change: no significant change Code Status & VTE Plan Code Status Full VTE Prophylaxis Plan VTE Prophylaxis will be ordered: Yes PG Care Time/CCT Total # of Minutes Spent Total Time Spent with Patient: Total time spent is greater than 50% in coordination of care (as documented) at patient's floor/unit and/or counseling patient: Coding Level of Care Code 84551 INT INP/OBS CARE 3/75MIN Diagnoses Acute on chronic heart failure with preserved ejection fraction I50.33 Pleural effusion J90 Hypoxia R09.02
--- NOTE | 2025-06-24 15:38 | Emergency Department Note ---
Impression & Plan CHF (congestive heart failure), Pleural effusion, Hypoxia ED Provider Note Diagnosis: CHF exacerbation, pleural effusions, hypoxia Disposition: Admission CHIEF COMPLAINT: Shortness of breath HPI: Patient is a 70-year-old female presenting with complaint of worsening shortness of breath. Patient states symptoms have been worse over the past 1 weeks time but significantly more so in the past 24 hours. Patient states she feels like she cannot walk more than 10 steps without becoming dyspneic. Patient states increased lower extremity edema. Patient states she saw her primary care physician at the end of last week and her diuretic was moved from twice a day to once a day due to her kidney function. Patient denies any active chest pain today. Patient does not use oxygen at baseline and was found to be hypoxic upon triage today in the emergency room. PAST MEDICAL HISTORY: See Below PAST SURGICAL HISTORY: See Below SOCIAL HISTORY: See Below HOME MEDICATIONS: See Below ALLERGIES: See Below VITALS: See Below PHYSICAL EXAMINATION: GENERAL: Moderate distress EYE EXAM: Normal conjunctiva. OROPHARYNX: Moist mucus membranes. Grossly normal dentition. NECK: Supple, LUNGS: Clear to auscultation. Normal chest wall mechanics. HEART: NSR lower extremity edema, ABDOMEN: Abdomen soft, non-tender, normo-active bowel sounds, no masses, no rebound or guarding BACK: No CVA TTP. SKIN: No rashes and no bruising. UPPER EXTREMITIES: Upper extremities are grossly normal LOWER EXTREMITIES: Grossly normal, no edema. NEURO EXAM: A&O x3,, normal speech, moves all 4 extremities PSYCH: Cooperative MEDICAL DECISION MAKING: History obtained from: Patient ER Course: Patient is a 70-year-old female presenting with worsening shortness of breath. Patient found to be hypoxic today requiring nasal cannula oxygen support as high as 4 L nasal cannula. Patient has lower extremity edema. Patient's BNP is elevated. Patient on chest x-ray has significant bilateral pleural effusions. Patient given IV Lasix. Patient's EKG without signs of ischemia. Patient will be admitted to the hospitalist service for further treatment and evaluation. Labs (independently interpreted) are significant for: Elevated BNP, elevated troponin Imaging results (independently interpreted): Chest x-ray bilateral pleural effusions EKG interpretation (independently interpreted): Normal sinus rhythm no ST segment elevation or depression Medications given: IV Lasix Consultants: Hospitalist Chronic conditions affecting care: Congestive heart failure Triage Nursing notes reviewed and agree them. Vital Signs: reviewed and remarkable for: Hypoxia Shortness of breath Past Med/Surg History Problem List (Updated 06/24/25 @ 15:37 by Chandler Storey DO) Hypoxia (Acute) Pleural effusion (Acute) CHF (congestive heart failure) (Acute) Vitamin D deficiency Pulmonary hypertension Mitral regurgitation (HFpEF) heart failure with preserved ejection fraction Pulmonary nodule CHF exacerbation (Acute) Acute respiratory failure with hypoxia Acute diastolic CHF (congestive heart failure) Venous insufficiency Hypothyroidism Chronic anticoagulation Tricuspid regurgitation Edema Right lower lobe pulmonary nodule Pleural effusion, bilateral Pleural effusion on right Pleural effusion on left Pleural effusion (Acute) 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) Elevated WBC count Bilateral foot pain (Chronic) Right leg swelling (Acute) Right leg pain Right foot pain (Acute) Ankle pain, right (Acute) Hypercholesterolemia (Chronic) Hyperglycemia (Chronic) Medical History Paroxysmal atrial fibrillation CML (chronic myelocytic leukemia) Hypothyroidism in adult HTN (hypertension) Elevated TSH Atrial fibrillation with controlled ventricular rate Atrial fibrillation, new onset Superficial thrombophlebitis Hyperprolactinemia Herpes zoster Diverticulosis Carpal tunnel syndrome Surgical History History of hysteroscopy H/O oral surgery Family History Other Prostate cancer Denies family history of Ovarian cancer Breast cancer Lung cancer Colorectal cancer Social History Smoking Status: Never smoker Second Hand Exposure: No; Do You Dip or Chew Tobacco: No; Hx Alcohol Use: No Hx Substance Use: No Preferred Language: Maldivian Communication Ability: Effective Glass Carrier Required: No Beliefs That Will Affect Care: None marital status: Single Current Living Situation: Alone current occupational status: retired Feels Safe at Home: Yes Childhood Exposure to Second-Hand Smoke: No Diet: regular Dental Care, Regularly: Yes Physical Activity Frequency: Does not Exercise Seatbelt Use: always Sunscreen Use: Yes Assistive Devices: Glasses Allergies Allergies Allergy/AdvReac Type Severity Reaction Status Date / Time imatinib Allergy Intermediate horrible Unverified 06/24/25 15:07 rash and itching all over Home Meds Home Medications Medication Instructions Recorded Confirmed bosutinib 400 mg tablet (Bosulif) 400 mg PO QPM 11/05/23 06/24/25 amlodipine 5 mg-olmesartan 40 mg 1 tab PO QAM 06/24/25 06/24/25 tablet cholecalciferol (vitamin D3) 1,250 1,250 mcg PO WK 06/24/25 06/24/25 mcg (50,000 unit) capsule furosemide 40 mg tablet 40 mg PO QAM 06/24/25 06/24/25 levothyroxine 175 mcg capsule 175 mcg PO DAILYBB 06/24/25 06/24/25 Previous Rx's Medication Instructions Recorded metoprolol tartrate 50 mg tablet 50 mg PO BID #60 tabs 01/30/25 atorvastatin 40 mg tablet 40 mg PO HS #90 tabs 04/22/25 apixaban 5 mg tablet (Eliquis) 5 mg PO BID #60 tabs 06/11/25 Results & Data (ED) Vital Signs Vital Signs - 24 hr 06/24/25 12:25 06/24/25 12:37 06/24/25 13:06 Temperature 36.5 C Temperature Source Temporal Artery Scan Pulse Rate 65 59 L Pulse Rate [Apical] Pulse Rate from SpO2 Sensor 62 Respiratory Rate 18 27 H Respiratory Effort / Characteristics Non-Labored Respiratory Depth Normal Respiratory Pattern Regular Blood Pressure 207/79 H Blood Pressure [Left Arm] Blood Pressure Mean 121 Blood Pressure Mean [Left Arm] Pulse Oximetry 90 82 L 96 Oxygen Delivery Method Room Air Room Air Oxygen Flow Rate 0 Sepsis Recent Fever Within 48 Hours No Sepsis New/Unexplained Change in Mental Status N/A Sepsis Action Taken by Nursing No Action Required Oxygen Flow Rate - Titration 4 Pulse Oximetry Post Tiitration 96 06/24/25 13:13 06/24/25 13:26 06/24/25 13:26 Temperature Temperature Source Pulse Rate 82 Pulse Rate [Apical] 59 L Pulse Rate from SpO2 Sensor Respiratory Rate 20 Respiratory Effort / Characteristics Respiratory Depth Respiratory Pattern Blood Pressure Blood Pressure [Left Arm] 174/78 H Blood Pressure Mean Blood Pressure Mean [Left Arm] 110 Pulse Oximetry 96 Oxygen Delivery Method Room Air Nasal Cannula Oxygen Flow Rate 4 Sepsis Recent Fever Within 48 Hours Sepsis New/Unexplained Change in Mental Status Sepsis Action Taken by Nursing Oxygen Flow Rate - Titration Pulse Oximetry Post Tiitration 06/24/25 13:26 06/24/25 13:27 06/24/25 13:39 Temperature Temperature Source Pulse Rate 57 L 65 Pulse Rate [Apical] Pulse Rate from SpO2 Sensor 60 66 Respiratory Rate 19 25 H Respiratory Effort / Characteristics Respiratory Depth Respiratory Pattern Blood Pressure Blood Pressure [Left Arm] Blood Pressure Mean Blood Pressure Mean [Left Arm] Pulse Oximetry 96 96 96 Oxygen Delivery Method Oxygen Flow Rate Sepsis Recent Fever Within 48 Hours Sepsis New/Unexplained Change in Mental Status Sepsis Action Taken by Nursing Oxygen Flow Rate - Titration Pulse Oximetry Post Tiitration 06/24/25 13:48 06/24/25 13:51 06/24/25 14:06 Temperature Temperature Source Pulse Rate 65 64 63 Pulse Rate [Apical] Pulse Rate from SpO2 Sensor 67 61 62 Respiratory Rate 23 22 23 Respiratory Effort / Characteristics Respiratory Depth Respiratory Pattern Blood Pressure Blood Pressure [Left Arm] Blood Pressure Mean Blood Pressure Mean [Left Arm] Pulse Oximetry 95 95 96 Oxygen Delivery Method Oxygen Flow Rate Sepsis Recent Fever Within 48 Hours Sepsis New/Unexplained Change in Mental Status Sepsis Action Taken by Nursing Oxygen Flow Rate - Titration Pulse Oximetry Post Tiitration 06/24/25 14:15 06/24/25 14:21 06/24/25 14:24 Temperature Temperature Source Pulse Rate 67 76 Pulse Rate [Apical] Pulse Rate from SpO2 Sensor 66 73 Respiratory Rate 23 27 H Respiratory Effort / Characteristics Respiratory Depth Respiratory Pattern Blood Pressure Blood Pressure [Left Arm] 171/77 H Blood Pressure Mean Blood Pressure Mean [Left Arm] 108 Pulse Oximetry 95 94 Oxygen Delivery Method Oxygen Flow Rate Sepsis Recent Fever Within 48 Hours Sepsis New/Unexplained Change in Mental Status Sepsis Action Taken by Nursing Oxygen Flow Rate - Titration Pulse Oximetry Post Tiitration 06/24/25 14:36 06/24/25 14:39 06/24/25 14:48 Temperature Temperature Source Pulse Rate 66 61 Pulse Rate [Apical] Pulse Rate from SpO2 Sensor 66 63 Respiratory Rate 24 21 Respiratory Effort / Characteristics Respiratory Depth Respiratory Pattern Blood Pressure 200/72 H Blood Pressure [Left Arm] Blood Pressure Mean 139 Blood Pressure Mean [Left Arm] Pulse Oximetry 94 94 Oxygen Delivery Method Oxygen Flow Rate Sepsis Recent Fever Within 48 Hours Sepsis New/Unexplained Change in Mental Status Sepsis Action Taken by Nursing Oxygen Flow Rate - Titration Pulse Oximetry Post Tiitration Laboratory Data 06/24/25 12:48 06/24/25 12:48 Lab Results 06/24/25 06/24/25 06/24/25 Range/Units 12:48 13:32 14:28 WBC 8.61 (4.8-10.8) K/ul RBC 4.53 (4.20-5.40) M/uL Hgb 12.0 (12.0-16.0) g/dl Hct 37.0 (37.0-47.0) % MCV 81.7 (80.0-100.0) fL MCH 26.5 (25.0-34.0) pg MCHC 32.4 (32.0-36.0) g/dL RDW Std Deviation 47.8 H (36.4-46.3) fL RDW Coeff of Xuan 16.1 H (11.5-14.5) % Plt Count 328 (130-400) K/uL MPV 9.8 (9.4-12.4) fL Immature Gran % (Auto) 0.3 % Neut % (Auto) 81.3 % Lymph % (Auto) 5.7 % Monona % (Auto) 9.9 % Eos % (Auto) 2.1 % Baso % (Auto) 0.7 % Neut # (Auto) 7.00 H (1.40-6.50) K/uL Lymph # (Auto) 0.49 L (1.20-3.40) K/uL Monona # (Auto) 0.85 H (0.11-0.59) K/uL Eos # (Auto) 0.18 (0.00-0.50) K/uL Baso # (Auto) 0.06 (0.00-0.20) K/uL Immature Gran # (Auto) 0.03 (0.01-0.20) K/uL PT 12.6 H (9.0-12.0) Seconds INR 1.2 H (0.9-1.1) APTT 36 H (21-31) Seconds PTT Ratio 1.3 Sodium 141 (136-145) mmol/L Potassium 4.1 (3.5-5.1) mmol/L Chloride 112 H (98-107) mmol/L Carbon Dioxide 19 L (21-32) mmol/L Anion Gap 10 (3-11) BUN 39 H (6-23) mg/dl Creatinine 1.98 H (0.6-1.2) mg/dl Est Cr Clr Drug Dosing 28.9 ml/min eGFR 26.70 BUN/Creatinine Ratio 19.7 (10-20) Glucose 104 H (70-99(Fasting)) mg/dl Calcium 9.6 (8.6-10.3) mg/dl Total Bilirubin 0.7 (0.2-1.0) mg/dl AST 16 (13-39) U/L ALT 14 (7-52) U/L Alkaline Phosphatase 120 H (34-104) U/L Troponin I High Sens 23.5 H 22.9 H (0-14) pg/ml B-Natriuretic Peptide 305 H (0-100) pg/ml Total Protein 7.9 (6.0-8.3) gm/dl Albumin 4.1 (3.4-5.0) gm/dl Globulin 3.8 (2.5-4.0) gm/dl Albumin/Globulin Ratio 1.1 (0.9-2) SARS-CoV-2 (PCR) NEGATIVE (Negative) Influenza Type A (PCR) Negative (Neg) Influenza Type B (PCR) Negative (Neg) RSV (RT-PCR) Negative (Neg) Administered Medications Discontinued Medications Furosemide (Furosemide 40 Mg/4 Ml Vial) 40 mg IV ONE ONE Stop: 06/24/25 14:15 Last Admin: 06/24/25 14:23 Dose: 40 mg Documented By: CAP Imaging Data Radiologist's Impression: Chest X-Ray 06/24/25 12:29 XR chest 1V portable CLINICAL HISTORY: Chest pain, nonspecific COMPARISON STUDY: 06/15/2025 FINDINGS: The heart is enlarged. There is persistent pulmonary vascular congestion with bilateral pleural effusions and associated bibasilar atelectasis/consolidation. IMPRESSION: 1. Cardiomegaly and mild pulmonary vascular congestion 2. Slight interval increase in the bilateral pleural effusions with associated bibasilar atelectasis/consolidation ACT 112: Negative or not required by law. Electronically signed by: Brett Dash M.D. 06/24/2025 1:50 PM Discharge Plan Visit Data Chief Complaint: Shortness of Breath/Dyspnea Stated Complaint: SHORTNESS OF BREATH ED Provider: Chandler Storey Discharge Problem: CHF (congestive heart failure), Pleural effusion, Hypoxia Condition: Serious
--- NOTE | 2025-06-24 16:15 | Electrocardiogram Report ---
Test Reason : Blood Pressure : */* mmHG Vent. Rate : 61 BPM Atrial Rate : 61 BPM P-R Int : 196 ms QRS Dur : 92 ms QT Int : 416 ms P-R-T Axes : 47 40 53 degrees QTcB Int : 418 ms Normal sinus rhythm with sinus arrhythmia When compared with ECG of 28-Dec-2024 13:38, No significant change was found Confirmed by Prashanth Roberts ([id number] on 06/24/2025 4:15:08 PM Referred By: REFERRED SELF Confirmed By: Prashanth Roberts
[2025-06-24 16:24] LABS: Total Protein Urine Random 22.0 mg/dl (0-11.9)
[2025-06-24 16:29] LABS: Protein Creatinine Ratio Urine 0.6 (0-0.2)
--- NOTE | 2025-06-24 16:51 | Ultrasound Report ---
Clinical history: Acute renal injury Technique: Renal sonography was performed Findings: The kidneys are of normal size and echogenicity. The right kidney measures 9.3 cm in length and the left kidney measures 8 cm in length. There is no hydronephrosis or visualized hydroureter. There is a suspected 4 mm left renal calculus The urinary bladder appears unremarkable. Bilateral ureteral jets were seen. There appear to be bilateral pleural effusions. There is a small amount of ascites Impression: 1. Small nonobstructing left renal calculus 2. Bilateral pleural effusions 3. Small amount of ascites Electronically signed by Tomas Kruse 06-24-2025 4:50 PM
[2025-06-24] MEDS: FUROSEMIDE 40 MG/4 ML VIAL IV SCH (19:29)
[2025-06-24] MEDS ORDERED: APIXABAN 5 MG TABLET PO SCH (21:00)
[2025-06-24] MEDS: ATORVASTATIN 40 MG TAB PO SCH (22:32)
[2025-06-24] MEDS: METOPROLOL TARTRATE 50 MG TAB PO SCH (22:32)
[2025-06-25] MEDS: LEVOTHYROXINE SODIUM 175 MCG TABLET PO SCH (05:33)
[2025-06-25 07:22] LABS: Anion Gap 8.0 (3-11); Blood Urea Nitrogen 39.0 mg/dl (6-23); Calcium 8.8 mg/dl (8.6-10.3); Carbon Dioxide 21.0 mmol/L (21-32); Chloride 114.0 mmol/L (98-107); Creatinine Clr Calc Pharmacy 27.9 ml/min; Glucose 89.0 mg/dl (70-99(Fasting)); Potassium 3.9 mmol/L (3.5-5.1); Sodium 143.0 mmol/L (136-145)
[2025-06-25] MEDS: LOSARTAN POTASSIUM 50 MG TAB PO SCH (08:25)
[2025-06-25] MEDS ORDERED: NON-FORMULARY MEDICATION (Amlodipine-Olmesartan 5-40 mg tablet) PO SCH (09:00)
--- NOTE | 2025-06-25 11:24 | XCELERA ---
[id number]
--- NOTE | 2025-06-25 18:11 | Hospitalist Progress Note ---
Date of Service June 25, 2025 Assessment & Plan (1) Acute on chronic heart failure with preserved ejection fraction: (2) Pleural effusion: (3) Hypoxia: Plan 70 year old female with HFpEF and CML presents with worsening shortness of breath Acute on chronic HFpEF / bilateral pleural effusions / hypoxia / moderate to severe pulmonary hypertension I suspect her fluid retention and worsening renal function is primarily due to bosutinib, on discussion with the patient she has oncology follow up on so will hold for now and she can discuss this further at her follow up appointment. On room air at baseline, currently on 4LPM O2 Lasix 40mg IV BID Strict I&Os Daily weights Will continue hold Eliquis in case need for thoracentesis similar to December TTE - no significant change from December, ongoing high right ventricular systolic pressure, may need right heart cath if not previously performed EMMETT Suspect renal venous congestion +/- direct effect of bosutinib Urine Protein/Cr ratio 0.6 Baseline Cr 1.13 in December. Hypertension Olmesartan switched to losartan per hospital formulary Continue amlodipine and metoprolol tartrate Lasix as above CML Holding bosutinib for now as possible cause of her pleural effusions Hypothyroidism TSH WNL in May 2025, continue levothyroxine 175 mcg PO daily VTE Prophylaxis - holding Eliquis due to possible need for thoracentesis pending clinically course, encourage ambulation, last Eliquis dose 9/3 AM Disposition - admit to med/tele Admission and Anticipated Discharge Date Admission Date: June 24, 2025 Subjective No significant change in admission. Ongoing shortness of breath. Ongoing oxygen requirement. Orthopnea and leg swelling. Physical Exam Constitutional: WD/WN, vitals as above ENMT: external ear and nose normal, oropharynx normal Respiratory: normal respiratory effort; no respiratory distress Auscultation: + diminished lung sounds (bibasal); no crackles Cardiovascular: Rate/Rhythm: regular rate and regular rhythm Heart Sounds: no murmur Extremities: + pedal edema (2+ b/l pitting equal) Gastrointestinal (Abdomen): normal bowel sounds, soft, nontender, no hepatosplenomegaly Musculoskeletal: no cyanosis or clubbing, extremities motor strength 5/5 Skin: no rashes, warm and dry (skin depigmentation over face and hands) Neurologic: moves all extremities and awake; not confused Psychiatric: A+Ox3, euthymic affect Results & Data Results & Data Vital Signs (Past 12 Hours) Vital Signs Temp Pulse Pulse Resp BP BP Pulse Ox 06/25/25 16:36 36.6 C 63 18 166/73 H 91 06/25/25 14:40 95 06/25/25 14:19 60 06/25/25 12:54 06/25/25 12:05 36.4 C L 73 18 174/76 H 95 06/25/25 10:09 06/25/25 08:22 36.7 C 61 18 161/70 H 93 06/25/25 07:08 63 Pulse Ox Pulse Ox Pulse Ox O2 Del Method O2 Flow Rate O2 Flow Rate O2 Flow Rate 06/25/25 16:36 Nasal Cannula 4 06/25/25 14:40 06/25/25 14:19 06/25/25 12:54 94 92 89 L 4 4 06/25/25 12:05 Nasal Cannula 4 06/25/25 10:09 Nasal Cannula 4 06/25/25 08:22 Nasal Cannula 4 06/25/25 07:08 O2 Flow Rate 06/25/25 16:36 06/25/25 14:40 06/25/25 14:19 06/25/25 12:54 4 06/25/25 12:05 06/25/25 10:09 06/25/25 08:22 06/25/25 07:08 PG Care Time/CCT Total # of Minutes Spent Total Time Spent: 65 Total Time Spent with Patient: Total time spent is greater than 50% in coordination of care (as documented) at patient's floor/unit and/or counseling patient: Coding Level of Care Code 16889 SUB INP/OBS CARE 3/50MIN Diagnoses Acute on chronic heart failure with preserved ejection fraction I50.33 Pleural effusion J90 Hypoxia R09.02
[2025-06-26 06:35] LABS: Anion Gap 6.0 (3-11); Blood Urea Nitrogen 37.0 mg/dl (6-23); Calcium 8.6 mg/dl (8.6-10.3); Carbon Dioxide 24.0 mmol/L (21-32); Chloride 114.0 mmol/L (98-107); Creatinine Clr Calc Pharmacy 28.9 ml/min; Glucose 98.0 mg/dl (70-99(Fasting)); Potassium 4.0 mmol/L (3.5-5.1); Sodium 144.0 mmol/L (136-145)
[2025-06-26] MEDS ORDERED: ACETAMINOPHEN 325 MG TAB PO PRN (08:08)
[2025-06-26] MEDS ORDERED: ENOXAPARIN INJ 40 MG/0.4 ML SYR SQ SCH (09:00)
[2025-06-26] MEDS: ENOXAPARIN INJ 30 MG/0.3 ML SYR SQ SCH (09:08)
--- NOTE | 2025-06-26 09:15 | Hospitalist Progress Note ---
Date of Service June 26, 2025 Assessment & Plan (1) Acute on chronic heart failure with preserved ejection fraction: (2) Pleural effusion: (3) Hypoxia: Plan 70 year old female with HFpEF and CML presents with worsening shortness of breath Acute on chronic HFpEF / bilateral pleural effusions / hypoxia / severe pulmonary hypertension I suspect her fluid retention and worsening renal function is primarily due to bosutinib, on discussion with the patient she has oncology follow up on so will hold for now and she can discuss this further at her follow up appointment. On room air at baseline, currently on 4LPM O2 Strict I&Os - negative 770 for 8 hours yesterday, therefore approx 2310ml in 24 hours - Increase Lasix 40 -> 80mg IV BID Daily weights Will continue hold Eliquis (last dose 06/24) in case need for thoracentesis on Sunday similar to December as not significant improvement in O2 sats to date TTE - no significant change from December, ongoing high right ventricular systolic pressure, may need right heart cath if not previously performed Consider right heart cath as outpatient EMMETT Improving Suspect renal venous congestion +/- direct effect of bosutinib Urine Protein/Cr ratio 0.6 Baseline Cr 1.13 in December. Hypertension Olmesartan switched to losartan per hospital formulary Continue amlodipine and metoprolol tartrate Lasix as above CML Holding bosutinib for now as possible cause of fluid retention Hypothyroidism TSH WNL in May 2025, continue levothyroxine 175 mcg PO daily VTE Prophylaxis - holding Eliquis due to possible need for thoracentesis pending clinically course, encourage ambulation, last Eliquis dose 06/24 AM, start Lovenox 40mg SQ daily Disposition - continue on med/tele Admission and Anticipated Discharge Date Admission Date: June 24, 2025 Anticipated date of discharge: 06/29/25 Subjective Ongoing orthopnea, not significantly better but urinating a reasonable amount after Lasix. I&Os not more accurately recorded but not yet 24 hours of data. Physical Exam Constitutional: WD/WN, vitals as above ENMT: external ear and nose normal, oropharynx normal Respiratory: normal respiratory effort; no respiratory distress Auscultation: + diminished lung sounds (bibasal) and + crackles (bibasal) Cardiovascular: Rate/Rhythm: regular rate and regular rhythm Heart Sounds: + murmur (RUSB systolic) Extremities: + pedal edema (1+ b/l pitting equal) Gastrointestinal (Abdomen): normal bowel sounds, soft, nontender, no hepatosplenomegaly Skin: no rashes, warm and dry (skin depigmentation over face and hands) Neurologic: moves all extremities and awake; not confused Psychiatric: A+Ox3, euthymic affect Results & Data Results & Data Vital Signs (Past 12 Hours) Vital Signs Temp Pulse Pulse Resp BP BP Pulse Ox 06/26/25 07:43 36.8 C 64 20 149/51 H 93 06/26/25 04:00 36.5 C 72 18 151/71 H 93 06/25/25 23:53 36.7 C 84 18 120/65 92 06/25/25 21:49 61 O2 Del Method O2 Flow Rate 06/26/25 07:43 Nasal Cannula 4 06/26/25 04:00 Nasal Cannula 4 06/25/25 23:53 Nasal Cannula 4 06/25/25 21:49 PG Care Time/CCT Total # of Minutes Spent Total Time Spent with Patient: Total time spent is greater than 50% in coordination of care (as documented) at patient's floor/unit and/or counseling patient: Coding Level of Care Code 41292 SUB INP/OBS CARE 2/35MIN Diagnoses Acute on chronic heart failure with preserved ejection fraction I50.33 Pleural effusion J90 Hypoxia R09.02
[2025-06-26] MEDS: FUROSEMIDE 40 MG/4 ML VIAL IV SCH (16:56)
[2025-06-27 06:31] LABS: Anion Gap 8.0 (3-11); Blood Urea Nitrogen 34.0 mg/dl (6-23); Calcium 9.0 mg/dl (8.6-10.3); Carbon Dioxide 23.0 mmol/L (21-32); Chloride 114.0 mmol/L (98-107); Creatinine Clr Calc Pharmacy 31.7 ml/min; Glucose 99.0 mg/dl (70-99(Fasting)); Potassium 3.8 mmol/L (3.5-5.1); Sodium 145.0 mmol/L (136-145)
--- NOTE | 2025-06-27 13:02 | Hospitalist Progress Note ---
Date of Service June 27, 2025 Assessment & Plan (1) Acute on chronic heart failure with preserved ejection fraction: (2) Pleural effusion: (3) Hypoxia: Plan 70 year old female with HFpEF and CML presents with worsening shortness of breath Acute on chronic HFpEF / bilateral pleural effusions / hypoxia / severe pulmonary hypertension I suspect her fluid retention and worsening renal function is primarily due to bosutinib, on discussion with the patient she has oncology follow up on so will hold for now and she can discuss this further at her follow up appointment. On room air at baseline, currently on 4LPM O2 Strict I&Os - net 0ml 7am to 3pm and -ve 300ml 3pm-11pm, this was despite the increase Lasix dosing; possibly we are reaching most of the pulmonary edema coming off and left with mainly her pleural effusion which may need thoracentes is, will perform POCUS tomorrow Daily weights Will continue hold Eliquis (last dose 06/24) in case need for thoracentesis on Sunday similar to December as not significant improvement in O2 sats to date TTE - no significant change from December, ongoing high right ventricular systolic pressure, may need right heart cath if not previously performed Consider right heart cath as outpatient EMMETT Improving with diuresis + holding bosutinib Suspect renal venous congestion +/- direct effect of bosutinib Urine Protein/Cr ratio 0.6 Baseline Cr 1.13 in December. Hypertension Olmesartan switched to losartan per hospital formulary Continue amlodipine and metoprolol tartrate Lasix as above CML Holding bosutinib for now as possible cause of fluid retention Hypothyroidism TSH WNL in May 2025, continue levothyroxine 175 mcg PO daily VTE Prophylaxis - holding Eliquis due to possible need for thoracentesis pending clinically course, started Lovenox 40mg SQ daily (planned future hold on Sunday in case of thoracentesis) Disposition - continue on med/tele Admission and Anticipated Discharge Date Admission Date: June 24, 2025 Anticipated date of discharge: 06/29/25 Subjective Ongoing significant oxygen requirement, mild improvement in shortness of breath. She reports urinating frequently on the Lasix. No leg swelling improvement. No chest pain or palpitations. Physical Exam Respiratory: normal respiratory effort; no respiratory distress Auscultation: + diminished lung sounds (bibasal) and + crackles (bibasal) Cardiovascular: Rate/Rhythm: regular rate and regular rhythm Heart Sounds: + murmur (RUSB systolic) Extremities: + pedal edema (1+ b/l pitting equal) Psychiatric: A+Ox3, euthymic affect Results & Data Results & Data Vital Signs (Past 12 Hours) Vital Signs Temp Pulse Pulse Resp BP Pulse Ox O2 Del Method 06/27/25 10:34 Nasal Cannula 06/27/25 07:40 61 06/27/25 07:39 36.4 C L 68 18 151/75 H 90 Nasal Cannula 06/27/25 04:34 36.6 C 67 18 169/70 H 91 Nasal Cannula O2 Flow Rate 06/27/25 10:34 4 06/27/25 07:40 06/27/25 07:39 4 06/27/25 04:34 4 PG Care Time/CCT Total # of Minutes Spent Total Time Spent with Patient: Total time spent is greater than 50% in coordination of care (as documented) at patient's floor/unit and/or counseling patient: Coding Level of Care Code 90586 SUB INP/OBS CARE 2/35MIN Diagnoses Acute on chronic heart failure with preserved ejection fraction I50.33 Pleural effusion J90 Hypoxia R09.02
[2025-06-28 07:16] LABS: Anion Gap 8.0 (3-11); Blood Urea Nitrogen 32.0 mg/dl (6-23); Calcium 8.7 mg/dl (8.6-10.3); Carbon Dioxide 27.0 mmol/L (21-32); Chloride 109.0 mmol/L (98-107); Creatinine Clr Calc Pharmacy 35.4 ml/min; Glucose 99.0 mg/dl (70-99(Fasting)); Potassium 3.8 mmol/L (3.5-5.1); Sodium 144.0 mmol/L (136-145)
--- NOTE | 2025-06-28 08:21 | XRay Report ---
XR chest 1V portable CLINICAL HISTORY: pleural effusions, pulmonary edema re-eval COMPARISON STUDY: Chest CT March 30, 2020. Chest radiograph June 24, 2025. FINDINGS: There is no pneumothorax. Moderate right and small left pleural effusions are similar to pr ior exam. There are suspected bibasilar opacities. Cardiomegaly is again noted. Mild interstitial pul monary edema persists. IMPRESSION: 1. Cardiomegaly with mild interstitial pulmonary edema, similar to prior exam. 2. No significant change in moderate right and small left pleural effusions with associated bibasilar opacities. ACT 112: Negative or not required by law. Electronically signed by: Azeem Hayward M.D. 06/28/2025 8:19 AM
[2025-06-28] MEDS: ENOXAPARIN INJ 40 MG/0.4 ML SYR SQ SCH (08:50)
--- NOTE | 2025-06-28 10:10 | Hospitalist Progress Note ---
Date of Service June 28, 2025 Assessment & Plan (1) Acute on chronic heart failure with preserved ejection fraction: (2) Pleural effusion: (3) Hypoxia: Plan 70 year old female with HFpEF and CML presents with worsening shortness of breath Acute on chronic HFpEF / bilateral pleural effusions / hypoxia / severe pulmonary hypertension I suspect her fluid retention and worsening renal function is primarily due to bosutinib, on discussion with the patient she has oncology follow up on so will hold for now and she can discuss this further at her follow up appointment. On room air at baseline, currently on 4LPM O2 Strict I&Os - not at goal -ve 500ml, will add metolazone 2.5mg PO and switch Lasix to Bumex 4mg IV BID, additional metolazone dose in afternoon if still not increasing urine output substantially, diuresis may improve as her renal fun ction gets better too. ?thoracentesis Sunday if needed at all as still plenty more diuresis possible with medications based on POCUS exam and CXR today Daily standing weights TTE - no significant change from December, ongoing high right ventricular systolic pressure, may need right heart cath if not previously performed Consider right heart cath as outpatient EMMETT Improving with diuresis + holding bosutinib Suspect renal venous congestion +/- direct effect of bosutinib Urine Protein/Cr ratio 0.6 Baseline Cr 1.13 in December. Hypertension Olmesartan switched to losartan per hospital formulary Continue amlodipine and metoprolol tartrate Lasix as above CML Holding bosutinib for now as possible cause of fluid retention Hypothyroidism TSH WNL in May 2025, continue levothyroxine 175 mcg PO daily VTE Prophylaxis - holding Eliquis due to possible need for thoracentesis pending clinically course, started Lovenox 40mg SQ daily Disposition - continue on med/tele Admission and Anticipated Discharge Date Admission Date: June 24, 2025 Anticipated date of discharge: 07/02/25 Subjective Not significant change in oxygen requirement and subjective improvement only because she has been on oxygen but not from admission to now. I&Os -ve 500ml yesterday. Physical Exam Physical Exam: POCUS - significant B lines everywhere except superior posteriorly, pleural effusion mod-large to mid chest, no significant change from 06/25 Respiratory: normal respiratory effort; no respiratory distress Auscultation: + diminished lung sounds (bibasal) and + crackles (bibasal) Cardiovascular: Rate/Rhythm: regular rate and regular rhythm Heart Sounds: + murmur Extremities: + pedal edema Psychiatric: A+Ox3, euthymic affect Results & Data Results & Data Vital Signs (Past 12 Hours) Vital Signs Temp Pulse Pulse Resp BP Pulse Ox O2 Del Method 06/28/25 08:08 36.6 C 74 20 153/66 H 92 Nasal Cannula 06/28/25 07:38 55 L 06/28/25 04:12 36.5 C 56 L 16 169/73 H 94 Nasal Cannula 06/27/25 22:43 36.4 C L 63 16 107/53 L 95 Nasal Cannula O2 Flow Rate 06/28/25 08:08 06/28/25 07:38 06/28/25 04:12 4 06/27/25 22:43 4 PG Care Time/CCT Total # of Minutes Spent Total Time Spent with Patient: Total time spent is greater than 50% in coordination of care (as documented) at patient's floor/unit and/or counseling patient: Coding Level of Care Code 04521 SUB INP/OBS CARE 3/50MIN Diagnoses Acute on chronic heart failure with preserved ejection fraction I50.33 Pleural effusion J90 Hypoxia R09.02
[2025-06-28] MEDS: BUMETANIDE 4 MG in SYRINGE 0 ML IV SCH (16:39)
[2025-06-29] MEDS: CHOLECALCIFEROL 125 MCG (5,000 UNITS) TAB PO SCH (08:23)
[2025-06-29 08:33] LABS: Anion Gap 6.0 (3-11); Blood Urea Nitrogen 36.0 mg/dl (6-23); Calcium 8.8 mg/dl (8.6-10.3); Carbon Dioxide 31.0 mmol/L (21-32); Chloride 105.0 mmol/L (98-107); Creatinine Clr Calc Pharmacy 31.5 ml/min; Glucose 100.0 mg/dl (70-99(Fasting)); Potassium 3.4 mmol/L (3.5-5.1); Sodium 142.0 mmol/L (136-145)
--- NOTE | 2025-06-29 11:21 | Hospitalist Progress Note ---
Date of Service June 29, 2025 Assessment & Plan (1) Acute on chronic heart failure with preserved ejection fraction: (2) Pleural effusion: (3) Hypoxia: Plan 70 year old female with HFpEF and CML presents with worsening shortness of breath Acute on chronic HFpEF / bilateral pleural effusions / hypoxia / severe pulmonary hypertension I suspect her fluid retention and worsening renal function is primarily due to bosutinib, on discussion with the patient she has oncology follow up on so will hold for now and she can discuss this further at her follow up appointment. On room air at baseline, currently on 4LPM O2 Strict I&Os - subjectively patient urinating much more than what is being recorded, bump in creatinine however suggests it was a little too much yesterday so will hold off the metolazone today and just use Bumex but I think we are heading towards thoracentesis (probably Sunday) in order to be able to take her off oxygen Daily standing weights - weight is down from standing weight 84.8 on 06/26 to 81 today so appears we are moving in the right direction but she remains significantly symptomatic and hypoxic TTE - no significant change from December, ongoing high right ventricular systolic pressure Consider right heart cath as outpatient EMEMTT Improving generally with diuresis + holding bosutinib, slight bump today reflects significant increase in diuretics yesterday with bumex and metolazone given, I would expect it to have continued to improve with the right degree of diuresis Suspect renal venous congestion +/- direct effect of bosutinib Urine Protein/Cr ratio 0.6 Baseline Cr 1.13 in December Hypertension Olmesartan switched to losartan per hospital formulary Continue amlodipine and metoprolol tartrate Lasix as above CML Holding bosutinib for now as possible cause of fluid retention Hypothyroidism TSH WNL in May 2025, continue levothyroxine 175 mcg PO daily VTE Prophylaxis - holding Eliquis due to possible need for thoracentesis pending clinically course, continue Lovenox 40mg SQ daily Disposition - continue on med/tele Admission and Anticipated Discharge Date Admission Date: June 24, 2025 Subjective Patient reports urinating a lot but nothing recorded between 7am and 3pm yesterday despite patient recollection she urinated multiple times during this time. No significant change in shortness of breath and she remains on 4LPM O2. Physical Exam Respiratory: normal respiratory effort; no respiratory distress Auscultation: + diminished lung sounds (bibasal) and + crackles (bibasal) Cardiovascular: Rate/Rhythm: regular rate and regular rhythm Heart Sounds: + murmur Extremities: + pedal edema Psychiatric: A+Ox3, euthymic affect Results & Data Results & Data Vital Signs (Past 12 Hours) Vital Signs Temp Pulse Pulse Resp BP BP Pulse Ox 06/29/25 11:08 36.6 C 51 L 16 138/79 94 06/29/25 10:22 06/29/25 08:45 37.0 C 59 L 16 173/72 H 90 06/29/25 07:12 52 L 06/29/25 03:12 36.5 C 63 16 136/70 93 O2 Del Method O2 Flow Rate 06/29/25 11:08 Room Air 4 06/29/25 10:22 Nasal Cannula 4 06/29/25 08:45 Nasal Cannula 4 06/29/25 07:12 06/29/25 03:12 Nasal Cannula 4 PG Care Time/CCT Total # of Minutes Spent Total Time Spent with Patient: Total time spent is greater than 50% in coordination of care (as documented) at patient's floor/unit and/or counseling patient: Coding Level of Care Code 23703 SUB INP/OBS CARE 2/35MIN Diagnoses Acute on chronic heart failure with preserved ejection fraction I50.33 Pleural effusion J90 Hypoxia R09.02
[2025-06-29] MEDS: POTASSIUM CHLORIDE CRTAB 20 MEQ TABCR PO STA (17:42)
[2025-06-30 09:31] LABS: Anion Gap 9.0 (3-11); Blood Urea Nitrogen 42.0 mg/dl (6-23); Calcium 9.3 mg/dl (8.6-10.3); Carbon Dioxide 30.0 mmol/L (21-32); Chloride 102.0 mmol/L (98-107); Creatinine Clr Calc Pharmacy 25.9 ml/min; Glucose 136.0 mg/dl (70-99(Fasting)); Magnesium 2.2 mg/dl (1.7-2.4); Potassium 3.5 mmol/L (3.5-5.1); Sodium 141.0 mmol/L (136-145)
--- NOTE | 2025-06-30 10:55 | XRay Report ---
XR chest 1V not portable CLINICAL HISTORY: s/p rt thora COMPARISON STUDY: 06/28/2025 FINDINGS: Stable mild cardiomegaly with pulmonary vascular congestion. There is a trace right pleural effusion, improved. No pneumothorax. There is a small left pleural effusion and consolidation at the left lung base, increased. IMPRESSION: No pneumothorax seen. ACT 112: Negative or not required by law. Electronically signed by: Leonidas Lopez M.D. 06/30/2025 10:53 AM
--- NOTE | 2025-06-30 12:57 | Ultrasound Report ---
ULTRASOUND-GUIDED RIGHT THORACENTESIS CLINICAL HISTORY: right pleural effusion PROCEDURE: Procedure and risks were explained. Informed consent was obtained. A final timeout was com pleted. The right posterior thorax was prepped and draped in sterile fashion. 1% lidocaine was utiliz ed for skin anesthesia. Utilizing ultrasound guidance, a 5 Persian safety centesis catheter was advanced into the right pleura l effusion. Ultrasound images were obtained. A total of 800 mL of richardson pleural fluid was removed an d sent to the lab. The catheter was removed and Band-Aid applied. The patient tolerated the procedure well. A chest x-ray will be obtained post procedure. Vital signs will be monitored postprocedure. IMPRESSION: Ultrasound-guided right thoracentesis as above. Performed, dictated, and signed by Nehemias Moreira PA-C; to be co-signed by Dr. Leonidas Lopez. Electronically signed by: Leonidas Lopez M.D. 06/30/2025 4:17 PM
--- NOTE | 2025-06-30 14:36 | Hospitalist Progress Note ---
Date of Service June 30, 2025 Assessment & Plan (1) Acute on chronic heart failure with preserved ejection fraction: (2) Pleural effusion: (3) Hypoxia: Plan 70 year old female with HFpEF and CML presents with worsening shortness of breath Acute on chronic HFpEF / bilateral pleural effusions / hypoxia / severe pulmonary hypertension I suspect her fluid retention and worsening renal function is primarily due to bosutinib, on discussion with the patient she has oncology follow up on so will hold for now and she can discuss this further at her follow up appointment. On room air at baseline, currently on 4LPM O2 -> weaned to 2LPM O2 at rest after thoracentesis Strict I&Os - subjectively patient urinating much more than what is being recorded, bump in creatinine again suggest probably over diuresis with the metolazone and bumex but also net UO poor prior to this with lack of B lines on POCUS therefore went for thoracentesis of right lung today. Given ongoing O2 requirement with continue to hold Eliquis in case thoracentesis needs to be performed on the left side Daily standing weights - weight is down from standing weight 84.8kg 06/26 to 81.6kg 06/30 TTE - no significant change from December, ongoing high right ventricular systolic pressure Follow up with cardiology to consider right heart cath as outpatient EMMETT Was improving with diuresis + holding bosutinib, worsening last 2 days reflects significant increase in diuretics 06/28 with bumex and metolazone given, I would expect it to have continued to improve with the right degree of diuresis but will hold diuretics currently until it starts to trend down again Suspect renal venous congestion +/- direct effect of bosutinib Urine Protein/Cr ratio 0.6 Baseline Cr 1.13 in December - I suspect she can get back to this off bosutinib Hypertension Olmesartan switched to losartan per hospital formulary Continue amlodipine and metoprolol tartrate Diuretics as above CML Holding bosutinib for now as possible cause of fluid retention Hypothyroidism TSH WNL in May 2025, continue levothyroxine 175 mcg PO daily VTE Prophylaxis - holding Eliquis due to possible need for thoracentesis of left side pending clinically course, continue Lovenox 40mg SQ daily Disposition - continue on med/tele Admission and Anticipated Discharge Date Admission Date: June 24, 2025 Subjective Patient seen pre and post thoracentesis. Feels mildly improved with this but still on 4LPM O2 when seen but able to be weaned to 2LPm O2. Still very short of breath on short walks to the bathroom. Physical Exam Constitutional: WD/WN, vitals as above ENMT: external ear and nose normal, oropharynx normal Respiratory: normal respiratory effort; no respiratory distress Auscultation: + diminished lung sounds (bibasal) and + crackles (bibasal) Cardiovascular: Rate/Rhythm: regular rate and regular rhythm Heart Sounds: + murmur Extremities: + pedal edema Musculoskeletal: no cyanosis or clubbing, extremities motor strength 5/5 Skin: no rashes, warm and dry (skin depigmentation over face and hands) Results & Data Results & Data Vital Signs (Past 12 Hours) Vital Signs Temp Pulse Pulse Resp BP BP Pulse Ox 06/30/25 11:01 36.4 C L 56 L 18 133/71 95 06/30/25 08:50 36.7 C 62 18 127/71 97 06/30/25 08:00 06/30/25 07:49 56 L 06/30/25 02:46 36.7 C 62 18 143/69 H 95 O2 Del Method O2 Flow Rate 06/30/25 11:01 Nasal Cannula 4 06/30/25 08:50 Nasal Cannula 4 06/30/25 08:00 Room Air 06/30/25 07:49 06/30/25 02:46 Nasal Cannula 4 PG Care Time/CCT Total # of Minutes Spent Total Time Spent with Patient: Total time spent is greater than 50% in coordination of care (as documented) at patient's floor/unit and/or counseling patient: Coding Level of Care Code 74830 SUB INP/OBS CARE 2/35MIN Diagnoses Acute on chronic heart failure with preserved ejection fraction I50.33 Pleural effusion J90 Hypoxia R09.02
[2025-06-30] MEDS: LOPERAMIDE HCL 2 MG CAP PO STA (20:03)
[2025-07-01 07:05] LABS: Anion Gap 10.0 (3-11); Blood Urea Nitrogen 47.0 mg/dl (6-23); Calcium 9.3 mg/dl (8.6-10.3); Carbon Dioxide 28.0 mmol/L (21-32); Chloride 102.0 mmol/L (98-107); Creatinine Clr Calc Pharmacy 23.6 ml/min; Glucose 109.0 mg/dl (70-99(Fasting)); Potassium 4.1 mmol/L (3.5-5.1); Sodium 140.0 mmol/L (136-145)
--- NOTE | 2025-07-01 16:06 | Pulmonary Consultation ---
Date of Consultation July 01, 2025 Assessment & Plan (1) Acute on chronic heart failure with preserved ejection fraction: (2) Pleural effusion: (3) Hypoxia: (4) Pulmonary hypertension: Plan Patient without clear parenchymal pulmonary disease at this present time. She would benefit from an outpatient diagnostic workup related to pulmonary hypertension including a sleep study, PFTs and an HRCT once she is euvolemic. I would also recommend a tertiary referral to pulmonary hypertension center such as for right heart catheterization to establish whether she truly has precapillary pulmonary hypertension. My suspicion is that the patient has pulmonary hypertension related to CML which would be a rather rare cause, but is possible. TKI's and hyperviscosity syndrome related to CML can both cause pulmonary hypertension. Having said th at, I do suspect there is an element of diastolic heart failure as typically pleural effusions are not seen with pulmonary hypertension. Prior liver ultrasound to 05/14 did not reveal any evidence of liver disease that would suggest hepatopulmonary hypertension. Patient denies any platypnea. Her prior thoracentesis in July 2023 reveals an exudative effusion without evidence of malignancy on cytology. Unfortunately, pleural fluid studies were not sent on yesterday's thoracentesis. We can monitor chest imaging as an outpatient and repeat an imaging as above and if recurrent effusion is noted, would recommend thoracentesis with pleural fluid studies and cytology. I think she is stable for discharge at this time from a pulmonary perspective. History of Present Illness Reason for Consultation: Pulmonary hypertension Attending Physician: Brandon Qureshi MD History of Present Illness 70-year-old female with a past medical history of CML, atrial fibrillation and bilateral pleural effusions who presented to the hospital with increasing shortness of breath. She was previously seen by me on inpatient consult service in July 2023. At that time she underwent a thoracentesis. Prior pleural fluid studies revealed an exudate with unremarkable pleural triglyceride levels. Her previous pleural effusion was felt to be related to possible Dasatinib and congestive heart failure. Pleural fluid cytology at that time was negative for malignancy. Patient underwent a thoracentesis by interventional radiology 06/30/2025 with removal of 800 mL of pleural fluid on the right. Postprocedure chest x-ray revealed small left pleural effusion, consolidation of the left lung base and trace right pleural effusion. CT chest imaging 03/30/2025 revealed vascular congestion, moderate coronary artery calcifications, bilateral effusions, dependent atelectasis and a 7 mm pulmonary nodule. No evidence of ILD seen. EKG this admission reveals a normal sinus rhythm with sinus arrhythmia. Patient has chronic shortness of breath with mild to moderate exertion. This is improved since her thoracentesis and being diuresed in the hospital. She was requiring low-flow oxygen. 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 Denies any occupational exposures. No significant smoking history. Minimal secondhand smoke exposure. She denies any connective tissue disorders personally or in her family. She does suffer from vitiligo which she attributes to her CML therapies. She denies any sicca symptoms, dysphagia, telangiectasias or Raynaud's phenomenon. Patient's sister is being worked up for chronic dyspnea, but does not have a formal diagnosis of ILD or pulmonary hypertension. Allergies Allergy/AdvReac Type Severity Reaction Status Date / Time imatinib Allergy Intermediate horrible Unverified 06/24/25 15:07 rash and itching all over Home Medications Medication Instructions Recorded Confirmed Type bosutinib 400 mg tablet (Bosulif) 400 mg PO QPM 11/05/23 06/24/25 History metoprolol tartrate 50 mg tablet 50 mg PO BID #60 tabs 01/30/25 06/24/25 Rx atorvastatin 40 mg tablet 40 mg PO HS #90 tabs 04/22/25 06/24/25 Rx apixaban 5 mg tablet (Eliquis) 5 mg PO BID #60 tabs 06/11/25 06/24/25 Rx amlodipine 5 mg-olmesartan 40 mg 1 tab PO QAM 06/24/25 06/24/25 History tablet cholecalciferol (vitamin D3) 1,250 1,250 mcg PO WK 06/24/25 06/24/25 History mcg (50,000 unit) capsule furosemide 40 mg tablet 40 mg PO QAM 06/24/25 06/24/25 History levothyroxine 175 mcg capsule 175 mcg PO DAILYBB 06/24/25 06/24/25 History Patient History Medical History Paroxysmal atrial fibrillation CML (chronic myelocytic leukemia) Hypothyroidism in adult HTN (hypertension) Elevated TSH Atrial fibrillation with controlled ventricular rate Atrial fibrillation, new onset Superficial thrombophlebitis Hyperprolactinemia Herpes zoster Diverticulosis Carpal tunnel syndrome Surgical History History of hysteroscopy H/O oral surgery Family History Other Prostate cancer Denies family history of Ovarian cancer Breast cancer Lung cancer Colorectal cancer Social History Smoking Status: Never smoker Second Hand Exposure: No; Do You Dip or Chew Tobacco: No; Hx Alcohol Use: No Hx Substance Use: No Preferred Language: Mohawk Communication Ability: Effective Cork Wirer Required: No Beliefs That Will Affect Care: None marital status: Single Current Living Situation: Alone current occupational status: retired Feels Safe at Home: Yes Childhood Exposure to Second-Hand Smoke: No Diet: regular Dental Care, Regularly: Yes Physical Activity Frequency: Does not Exercise Seatbelt Use: always Sunscreen Use: Yes Assistive Devices: None Review of Systems 2 Review of Systems: All systems reviewed & are unremarkable except as noted in HPI & below Physical Exam Physical Exam: Constitutional: Patient appears to be of their stated age. Patient is in no apparent distress. Patient is well-developed. Eyes: Pupils are equal round and reactive to light. Conjunctivae are normal. Anicteric sclera. Ears nose, mouth and throat: Mallampati class 2. Normal posterior oropharynx. Uvula is midline. Neck: Trachea is midline. Visual inspection is normal. Respiratory: Clear to auscultation bilaterally. No use of accessory muscles. No significant clubbing noted. Cardiovascular: Regular rate and rhythm. No murmurs. No edema. Gastrointestinal: Normal bowel sounds, soft, nontender and nondistended. No hepatosplenomegaly noted. Musculoskeletal: No cyanosis. Patient is able to move all extremities. Strength is 5 out of 5 in the upper and lower extremities. Skin: Vitiligo noted over face and hands. Neurologic: No obvious focal neurological deficits seen. Psychiatric: Alert and oriented x3 with a euthymic affect. Results & Data Results & Data Vital Signs (Past 12 Hours) Vital Signs Temp Pulse Pulse Pulse Pulse Pulse Resp 07/01/25 12:03 36.5 C 57 L 16 07/01/25 11:51 72 89 71 07/01/25 08:33 36.8 C 64 20 07/01/25 08:00 07/01/25 07:20 71 Resp Resp Resp BP Pulse Ox Pulse Ox Pulse Ox 07/01/25 12:03 117/64 92 07/01/25 11:51 18 18 18 96 86 L 07/01/25 08:33 116/55 L 92 07/01/25 08:00 07/01/25 07:20 Pulse Ox O2 Del Method O2 Flow Rate O2 Flow Rate 07/01/25 12:03 Room Air 07/01/25 11:51 90 2 07/01/25 08:33 Nasal Cannula 2 07/01/25 08:00 Nasal Cannula 2 07/01/25 07:20 PG Care Time/CCT Total # of Minutes Spent Total Time Spent with Patient: Total time spent is greater than 50% in coordination of care (as documented) at patient's floor/unit and/or counseling patient: Coding Level of Care Code 27612 INT INP/OBS CARE 2/55MIN Diagnoses Acute on chronic heart failure with preserved ejection fraction I50.33 Pleural effusion J90 Hypoxia R09.02 Pulmonary hypertension I27.20
--- NOTE | 2025-07-01 20:57 | Hospitalist Progress Note ---
Date of Service July 01, 2025 Assessment & Plan (1) Acute on chronic heart failure with preserved ejection fraction: (2) Pleural effusion: (3) Hypoxia: (4) Stage 3b chronic kidney disease: (5) EMMETT (acute kidney injury): (6) Pulmonary hypertension: (7) Right-sided congestive heart failure: Plan 70yo female with chronic HFpEF/right-sided CHF, pulmonary HTN, and CML. Presented with worsening shortness of breath. #acute on chronic HFpEF / acute/chronic right-sided CHF - -certainly the Bosutinib can cause fluid retention/effusions but should not cause pulmonary HTN directly -etiology of worsening pulm HTN/right-sided CHF uncertain -no primary lung disease -no h/o VTE/PEs -no severe BARRY -patient has lost 9-10kg of weight since admission -diuretics currently on hold due to EMMETT -follows with Ms Cunningham Hailey in CHF clinic -diuretic dosing at discharge? -was on lasix 40mg daily at home; bumex 1mg BID at discharge? will send message to Ms Hart -pulmonary consult requested due to pulmonary HTN; appreciate their assistance & recs #pleural effusions - -s/p IR guided thoracentesis yesterday with 800cc of fluid removed -no complicating pneumothorax -unfortunately fluid was not sent for analysis -but likely transudative in setting of CHF -left sided effusion - likely too small to tap at this time #EMMETT - -starting in December 2024 creatinine ranged 1.4 to 1.7 -then in May 2025 creatinine sam to 1.9 to 2.2 -after diuresis creatinine improved to 1.5, now back to 2.2 today -hold diuretics -hold ARB -repeat BMP am #Hypertension - -Olmesartan switched to losartan per hospital formulary, but place on hold due to CKD/EMMETT -Continue amlodipine and metoprolol tartrate -hold diuretics today #CML - -Holding Bosutinib due to concern for contributing to fluid retention -has upcoming appt with heme/onc shortly after discharge #Hypothyroidism - -TSH WNL in May 2025 -continue levothyroxine 175 mcg PO daily #pulmonary HTN - -severe on echo this admission (PA pressure >60mmHg) -etiology? -[facility]m consult requested and recs appreciated -will need tertiary care referral/work-up (right heart cath, etc) -2-step -- needs 2 liters NC O2 with ambulation -see discussion above #PAF - -resume Eliquis in am d/c home in am tomorrow if BMP is stable care d/w Dr Gutierrez from pulmonary Admission and Anticipated Discharge Date Admission Date: June 24, 2025 Subjective tele overnight - NSR patient asks if she can d/c home today she is still requiring 2 liters of NC O2 discussed getting 2-step and having pulmonary see her for the worsening pulmonary HTN, etc. she reports that overall her breathing is much better in comparison to admission underwent thoracentesis yesterday and tolerated this well Review of Systems Review of Systems: cv - no chest pain or tightness pulm - no cough GI - no abd pain; +stool Physical Exam Physical Exam: gen - NAD, pleasant neck - no JVD mouth - MMM heart - RRR, s1 s2, 2/6 systolic murmur LSB lungs - CTA b/l, mildly decreased BS L base, minimally decreased BS R base, no rales abd - soft NT ND BS+ ext - trace edema, pulses 2+ b/l feet Results & Data Results & Data Vital Signs (Past 12 Hours) Vital Signs Temp Pulse Pulse Pulse Pulse Pulse Resp 07/01/25 19:39 36.7 C 64 18 07/01/25 16:43 57 L 07/01/25 16:22 36.6 C 58 L 20 07/01/25 12:03 36.5 C 57 L 16 07/01/25 11:51 72 89 71 Resp Resp Resp BP Pulse Ox Pulse Ox Pulse Ox 07/01/25 19:39 111/67 94 07/01/25 16:43 07/01/25 16:22 124/65 93 07/01/25 12:03 117/64 92 07/01/25 11:51 18 18 18 96 86 L Pulse Ox O2 Del Method O2 Flow Rate O2 Flow Rate 07/01/25 19:39 Nasal Cannula 2 07/01/25 16:43 07/01/25 16:22 Nasal Cannula 1 07/01/25 12:03 Room Air 07/01/25 11:51 90 2 Laboratory Results Laboratory Results - last 24 hr 07/01/25 06:02 Sodium 140 Potassium 4.1 Chloride 102 Carbon Dioxide 28 Anion Gap 10 BUN 47 H Creatinine 2.28 H Est Cr Clr Drug Dosing 23.6 eGFR 22.54 BUN/Creatinine Ratio 20.6 H Glucose 109 H Calcium 9.3 Diagnostic Findings 2-step ambulatory o2 test - needs 2 liters of NC O2 with activity (sats 86% in RA with walking) normal o2 sats in room air at rest PG Care Time/CCT Total # of Minutes Spent Total Time Spent with Patient: Total time spent is greater than 50% in coordination of care (as documented) at patient's floor/unit and/or counseling patient: Coding Level of Care Code 93582 SUB INP/OBS CARE 3/50MIN Diagnoses Acute on chronic heart failure with preserved ejection fraction I50.33 Pleural effusion J90 Hypoxia R09.02 Stage 3b chronic kidney disease N18.32 EMMETT (acute kidney injury) N17.9 Pulmonary hypertension I27.20 Right-sided congestive heart failure I50.810
[2025-07-02 06:51] LABS: Anion Gap 8.0 (3-11); Blood Urea Nitrogen 61.0 mg/dl (6-23); Calcium 8.6 mg/dl (8.6-10.3); Carbon Dioxide 30.0 mmol/L (21-32); Chloride 101.0 mmol/L (98-107); Creatinine Clr Calc Pharmacy 20.8 ml/min; Glucose 103.0 mg/dl (70-99(Fasting)); Potassium 3.7 mmol/L (3.5-5.1); Sodium 139.0 mmol/L (136-145)
[2025-07-02 09:04] VITALS: RESP 16
[2025-07-02 13:51] LABS: Creatinine Clr Calc Pharmacy 20.4 ml/min
[2025-07-02 14:54] VITALS: TEMP 97.7; O2SAT 98
[2025-07-02 15:51] VITALS: BP 133/71; PULSE 67
--- NOTE | 2025-07-02 15:52 | Discharge Summary ---
Discharge Summary Date of Service July 02, 2025 Principal Dx & Hospital Course #1 = Principal Diagnosis (1) Acute on chronic heart failure with preserved ejection fraction: (2) Pleural effusion: (3) Hypoxia: (4) Stage 3b chronic kidney disease: (5) EMMETT (acute kidney injury): (6) Pulmonary hypertension: (7) Right-sided congestive heart failure: Plan 70yo female with chronic HFpEF/right-sided CHF, pulmonary HTN, and CML. Presented with worsening shortness of breath. #acute on chronic HFpEF / acute/chronic right-sided CHF - -certainly the Bosutinib can cause fluid retention/effusions but should not cause pulmonary HTN directly -etiology of worsening pulm HTN/right-sided CHF uncertain -no primary lung disease -no h/o VTE/PEs -no severe BARRY -patient has lost 9-10kg of weight since admission -diuretics currently on hold due to EMMETT -follows with Ms Marisa Hart in CHF clinic -diuretic dosing at discharge? -was on lasix 40mg daily at home; bumex 1mg BID at discharge? will send message to Ms Hart -pulmonary consult requested due to pulmonary HTN; appreciate their assistance & recs #pleural effusions - -s/p IR guided thoracentesis yesterday with 800cc of fluid removed -no complicating pneumothorax -unfortunately fluid was not sent for analysis -but likely transudative in setting of CHF -left sided effusion - likely too small to tap at this time #EMMETT - -starting in December 2024 creatinine ranged 1.4 to 1.7 -then in May 2025 creatinine sam to 1.9 to 2.2 -after diuresis creatinine improved to 1.5, now back to 2.2 today -hold diuretics -hold ARB -repeat BMP am #Hypertension - -Olmesartan switched to losartan per hospital formulary, but place on hold due to CKD/EMMETT -Continue amlodipine and metoprolol tartrate -hold diuretics today #CML - -Holding Bosutinib due to concern for contributing to fluid retention -has upcoming appt with heme/onc shortly after discharge #Hypothyroidism - -TSH WNL in May 2025 -continue levothyroxine 175 mcg PO daily #pulmonary HTN - -severe on echo this admission (PA pressure >60mmHg) -etiology? -[facility] Pulm consult requested and recs appreciated -will need tertiary care referral/work-up (right heart cath, etc) -2-step -- needs 2 liters NC O2 with ambulation -see discussion above #PAF - -resume Eliquis in am d/c home in am tomorrow if BMP is stable care d/w Dr Gutierrez from pulmonary Admission HPI Per Admitting Provider Pattie Ackerman is a 70 year old female with heart failure with preserved ejection fraction and CML who presents to the ER with shortness of breath. She reports this has been ongoing for a couple of months but much worse since her diuretics were reduced due to concern for worsening azotemia. No chest pain. Having orthopnea but no PND. She feels her leg swelling is at baseline. She had a similar episode in December 2024 and bosutinib was placed on hold during the majority of that admission and her Cr was improving. She was receiving Lasix 40mg IV BID initially however on the last few days of admission was discontinued entirely due to rising Cr which does not really have appeared to have recovered since then. She was discharged on Lasix 40mg PO BID up from daily. Per oncology notes (02/2025) she was first diagnosed with CML 2022. Initially treated with imatinib for 2 months after developing a rash. Restarting caused pruritic and intermittent diarrhea. Dasatinib caused pleural effusions and pruritus. In August 2023 she was started on her current medication bosutinib. Discharge Exam gen - NAD, pleasant neck - no JVD mouth - MMM heart - RRR, s1 s2, 2/6 systolic murmur LSB lungs - CTA b/l, mildly decreased BS L base, minimally decreased BS R base, no rales abd - soft NT ND BS+ ext - trace edema, pulses 2+ b/l feet Discharge Plan Discharge Items Patient Disposition: Home - Self-Care Reason For Visit: ACUTE ON CHRONIC Congestive Heart Failure Discharge Diagnosis: 1. acute on chronic congestive heart failure (right-sided congestive heart failure) 2. pulmonary hypertension 3. pleural effusions - removal of right-sided fluid collection by radiology 4. chronic kidney disease 5. acute kidney injury (rise in creatinine) due to diuretics 6. hypothyroidism 7. history of atrial fibrillation 8. CML Activity: Resume your previous activity Activity Comment: gradually increase activity as tolerated Non-emergency contact: Primary Care Provider and Specialist Call non-emergency contact if: you have any medication questions, your symptoms worsen and you have a fever Follow-up/Referrals: ProAristides MD [Primary Care Provider] - 07/09/25 10:30 am Ken Gutierrez MD [Physician] - 07/14/25 12:45 pm Barbara Hart PA-C [Physician Toy Department Manager] - 07/07/25 10:30 am Diet: Heart Healthy Fluids: 1800ml (7 cups) Ambulatory Orders: Basic Metabolic Panel (Routine) Timeframe: [id number] Location: Determined by Patient Ordered By: Brandon Irving Attending Provider Instructions: Ms Ackerman, You were hospitalized due to shortness of breath from fluid build-up in the lungs. The fluid build-up was due to congestive heart failure. You lost about 15-20 pounds of fluid weight while here with improvement in your symptoms. Echocardiogram showed that the right side of your heart is weak, and that you have a condition called pulmonary hypertension that has been getting worse over time. See handouts. You also had thoracentesis procedure on the right lung to remove a pocket of fluid. In the midst of taking IV diuretics your kidney function level increased to a high of 2.6. This should improve over the next few days. Pulmonary saw you in consult and recommended a consult with the pulmonary hypertension clinic at [facility]. This will be arranged for you. Likely due to the pulmonary hypertension you need to use 2 liters of oxygen at home with activity/ambulation. Ok to remove the oxygen when sitting or sleeping. Be sure to take the oxygen with you when you leave your house. Other recommendations - 1. stop your amlodipine-olmesartan medicine for now 2. stop your furosemide 3. DO NOT TAKE ANY diuretic medicine today, 07/02 - or tomorrow, 07/03 4. on the AM of Sunday, 07/04, take bumetanide 1mg x 1; this is your new diuretic 5. on Sunday AM, 07/05, please come to [facility] to get a blood draw to recheck your kidney function; I will call you with the results. Do not take the bumetanide on Sunday until I call you with the results of your blood work 6. check your weight every morning on the same scale and keep a log of your weights 7. limit total fluid intake to about 1800ml each day Follow-up - see separate section Return to [facility] if - -you have fever over 100 degrees -you have worsening shortness of breath -you have chest pains -you have dizziness or lightheadedness -any other concerns It was our pleasure to care for you! -Brandon Irving Needle Leader Provider Instructions: Congestive Heart Failure Instructions: Call 911 and go to the Emergency Room if: * You have tightness or pain in your chest that does not go away with rest or Nitroglycerin * You are very short of breath even with rest Call your doctor if any of the following symptoms or problems start or get worse: * Shortness of breath or difficulty breathing * Wake up at night short of breath * Chest pain * Cough * Swelling of your hands, fee, or legs * More fatigued or tired with your normal activity * Palpitations - sudden fast heart beats WEIGHT * Weigh yourself every morning after using the bathroom. * Use the same scale. * Wear the same amount of clothing. * Write your weight down on your chart. * Call your doctor if you gain more than 2-3 pounds in 1-2 days. MEDICATIONS * Use this discharge instruction sheet for instructions. * Take your medications at the time your doctor ordered. * Do not skip a dose of your medicines. * If you miss a dose of medicine, take as soon as possible, but DO NOT DOUBLE A DOSE. * Read your medicine information when you get home. * Know all of the side effects of your medicine. * Call your doctor's office if you have any side effects. * Be sure all of your doctors know what medicine and herbs you take (including cold, flu, and herbal medicine). * Pain Medicine: If you do not get relief from your pain, please call your doctor for help. Take the following with you to your follow-up doctor appointments: * Weight Chart * Medication List * List of questions Do not drink excessive alcohol, beer or wine. Pending Studies at Discharge: No Stand-Alone Forms: My [facility], Smoking Cessation Medications and DC Order Prescriptions: New bumetanide 1 mg tablet 1 mg PO DIRECTED Qty: 30 2RF (DME) Oxygen Home Liters Per Minute See Rx Instructions .ROUTE .MEDSUPPLY Qty: 1 0RF Rx Instructions: 2 liters of oxygen with activity/ambulation Continued metoprolol tartrate 50 mg tablet 50 mg PO BID Qty: 60 5RF atorvastatin 40 mg tablet 40 mg PO HS Qty: 90 1RF Eliquis 5 mg tablet 5 mg PO BID Qty: 60 11RF cholecalciferol (vitamin D3) 1,250 mcg (50,000 unit) capsule 1,250 mcg PO WK Rx Instructions: Sunday levothyroxine 175 mcg capsule 175 mcg PO DAILYBB Held Bosulif 400 mg tablet 400 mg PO QPM Hold Instructions: hold UNLESS your oncologist advises to resume Rx Instructions: must administer with a meal/food. Taken at 6:30PM amlodipine-olmesartan 5-40 mg tablet 1 tab PO QAM Hold Instructions: hold Discontinued furosemide 40 mg tablet 40 mg PO QAM Discharge Orders: Discharge Order (Routine); Ordered 07/02/25 Ordered By: Brandon Jenkins/Other Patient Handouts: Pulmonary Hypertension, ED Right-Sided Heart Failure Admission Data Admit Date/Time: 06/24/25 14:59 Attending Provider: Brandon Qureshi Admit Provider: Brandon Espana Primary Care Provider: Aristides Narayanan Other Providers: Brandon Espana; Ken Gutierrez Hospital Stay Data Consultations 06/24/25 14:19 ED Decision to Admit Stat 07/01/25 09:49 Consult Pulmonology Routine Diagnostic Imagining Performed 06/24/25 15:26 US Renal Bladder [US renal/blad retro comp] Stat 06/30/25 IR thoracentesis wo tube US Routine Pending Results Patient Have Any Pending Studies at Discharge: No Discharge Instructions Given to Patient (Per Discharging Provider) Ms Ackerman, Hector were hospitalized due to shortness of breath from fluid build-up in the lungs. The fluid build-up was due to congestive heart failure. You lost about 15-20 pounds of fluid weight while here with improvement in your symptoms. Echocardiogram showed that the right side of your heart is weak, and that you have a condition called pulmonary hypertension that has been getting worse over time. See handouts. You also had thoracentesis procedure on the right lung to remove a pocket of fluid. In the midst of taking IV diuretics your kidney function level increased to a high of 2.6. This should improve over the next few days. Pulmonary saw you in consult and recommended a consult with the pulmonary hypertension clinic at [facility]. This will be arranged for you. Likely due to the pulmonary hypertension you need to use 2 liters of oxygen at home with activity/ambulation. Ok to remove the oxygen when sitting or sleeping. Be sure to take the oxygen with you when you leave your house. Other recommendations - 1. stop your amlodipine-olmesartan medicine for now 2. stop your furosemide 3. DO NOT TAKE ANY diuretic medicine today, 07/02 - or tomorrow, 07/03 4. on the AM of Sunday, 07/04, take bumetanide 1mg x 1; this is your new diuretic 5. on Sunday AM, 07/05, please come to [facility] to get a blood draw to recheck your kidney function; I will call you with the results. Do not take the bumetanide on Sunday until I call you with the results of your blood work 6. check your weight every morning on the same scale and keep a log of your weights 7. limit total fluid intake to about 1800ml each day Follow-up - see separate section Return to [facility] if - -you have fever over 100 degrees -you have worsening shortness of breath -you have chest pains -you have dizziness or lightheadedness -any other concerns It was our pleasure to care for you! -Brandon Qureshi Coding Diagnoses Acute on chronic heart failure with preserved ejection fraction I50.33 Pleural effusion J90 Hypoxia R09.02 Stage 3b chronic kidney disease N18.32 EMMETT (acute kidney injury) N17.9 Pulmonary hypertension I27.20 Right-sided congestive heart failure I50.810
== END 2025-07-02 17:58 | disposition home or self-care (01) | DRG 291 ==
LOC: ED 12:08 → EDINP 12:08 → SUATTDRO 14:59 → OBSVTOIN 14:59 → 2W 15:53

== ENCOUNTER 2025-09-08 20:15 | Inpatient (IN) ==
[2025-09-08 20:58] LABS: Hematocrit (blood only) 39.5 % (37.0-47.0); Hemoglobin 12.6 g/dL (12.0-16.0); Immature Granulocytes # (auto) 0.03 K/uL (0.01-0.20); Immature Granulocytes % (auto) 0.4 %; Mean Corpuscular Hemoglobin 26.4 pg (25.0-34.0); Mean Corpuscular Volume 82.6 fL (80.0-100.0); Platelet Count 318 K/uL (130-400); RDW Standard Deviation 54.4 fL (36.4-46.3); Red Blood Count 4.78 M/uL (4.20-5.40); White Blood Count 7.62 K/ul (4.8-10.8)
[2025-09-08 21:27] LABS: INR 1.3 (0.9-1.1); Partial Thromboplastin Time 31 Seconds (21-31); Prothrombin Time 13.2 Seconds (9.0-12.0)
[2025-09-08 21:31] LABS: Alanine Aminotransferase 8.0 U/L (7-52); Albumin Globulin Ratio 0.9 (0.9-2); Albumin Level 3.6 gm/dl (3.4-5.0); Alkaline Phosphatase 93.0 U/L (34-104); Anion Gap 10.0 (3-11); Bilirubin,Total 0.6 mg/dl (0.2-1.0); Blood Urea Nitrogen 77.0 mg/dl (6-23); Calcium 9.1 mg/dl (8.6-10.3); Carbon Dioxide 16.0 mmol/L (21-32); Chloride 112.0 mmol/L (98-107); Creatinine Clr Calc Pharmacy 9.9 ml/min; Globulin 3.9 gm/dl (2.5-4.0); Glucose 107.0 mg/dl (70-99(Fasting)); Potassium 4.6 mmol/L (3.5-5.1); Sodium 138.0 mmol/L (136-145); Total Protein 7.5 gm/dl (6.0-8.3)
--- NOTE | 2025-09-08 21:48 | XRay Report ---
Exam(s): XR CXR 1 VIEW EXAM: XR Chest, 1 View CLINICAL HISTORY: Chest pain, nonspecific. TECHNIQUE: Frontal view of the chest. COMPARISON: 09/02/2025. FINDINGS: Heart is normal size. Mild pulmonary vascular congestion. Development of a posterior layering moderate right pleural effusion with associated basilar atelectasis versus infiltrate. Decreased left pleural effusion. Improved aeration left lung base with residual atelectasis versus infiltrate. Apical scarring. Bones are osteopenic and unchanged. IMPRESSION: Development of a posterior layering moderate right pleural effusion with associated basilar atelectasis versus infiltrate. Decreased left pleural effusion. Improved aeration left lung base with residual atelectasis versus infiltrate. Electronically signed by: Torin Mark M.D. 09/08/25 21:47 PM
[2025-09-08] MEDS: SODIUM CHLORIDE 0.9% 500 ML IV ONE (23:01)
--- NOTE | 2025-09-08 23:11 | Emergency Department Note ---
Impression & Plan Acute renal failure, Pleural effusion on left, Pleural effusion on right, Edema ED Provider Note NAME: KEISHA DUQUE AGE: 70 SEX: F : 1955 ARRIVES VIA: Walk-In INFORMANT: Patient, ED PROVIDER(S): Sari Monzon MD CHIEF COMPLAINT: Fatigue, reduced urination HPI: This is 70-year-old female with history of CML currently on chemotherapy presenting for fatigue, nausea, vomiting, decreased appetite. Patient notes that she was recently hospital and had a pleurocentesis. She notes that she has significantly improved symptoms a few days after being discharged and then worsening since then. She notes feeling very weak, tired with no appetite. She is only been urinating 1 time a day despite taking the diuretics. She notes no energy otherwise. No chest pain or shortness of breath associate with this. She has a chronic nausea and vomiting and diarrhea that is unchanged. She is not eating due to this nausea and vomiting. No dysuria. No fevers or chills. ROS: See above HPI for pertinent positives & negatives. A total of 10 systems reviewed and were otherwise negative. PAST MEDICAL HISTORY: See Below PAST SURGICAL HISTORY: See Below FAMILY HISTORY: See Below SOCIAL HISTORY: See Below HOME MEDICATIONS: See Below ALLERGIES: See Below VITALS: See Below PHYSICAL EXAMINATION: General: Chronic ill-appearing Head: Normocephalic and atraumatic Eyes: Normal inspection, extraocular muscles intact Ear, nose, throat: Normal external exam Neck: Normal range of motion Respiratory: lungs clear to auscultation bilaterally Cardiovascular: Regular rate/rhythm, no murmur GI: Nondistended, soft, nontender, no guarding or rebound Extremities: nontender, moves all extremities Neuro: The patient awake and alert, appropriately conversive, no focal deficits, symmetric faces Skin: Warm, dry, and intact MEDICAL DECISION MAKING: This is a 70-year-old female presenting for fatigue, nausea/vomiting. Patient been chronically nauseous and vomiting with diarrhea. She appears somewhat dehydrated despite having 2+ pitting edema. -Screening blood work reveals no leukocytosis or anemia - Significant EMMETT is noted with creatinine going from 1.95 to 5.33. This was would explain patient's oliguria -Chest x-ray reveals development of posterior layering moderate right pleural effusion and decrease in the left pleural effusion -Will require admission for the significant EMMETT, oliguria and pleural effusion. Will trial 500 cc bolus for rehydration -Care discussed Dr. Ivory for admission Differential diagnosis: Failure to thrive, deconditioning, renal failure, SBO, bladder outlet obstruction Independent History obtained from: 2 sisters Diagnostics interpreted by me: ECG: None Cardiac Monitoring: An order was placed for continuous cardiac monitoring. The monitor shows a rate of 60 with sinus rhythm. Past Med/Surg History Problem List (Updated 09/08/25 @ 23:11 by Sari Monzon MD) Acute renal failure (Acute) Encounter for monitoring diuretic therapy Vaccination hesitancy by patient Right-sided congestive heart failure EMMETT (acute kidney injury) Stage 3b chronic kidney disease Acute on chronic heart failure with preserved ejection fraction Hypoxia (Acute) Pleural effusion (Acute) CHF (congestive heart failure) (Acute) Vitamin D deficiency Mitral regurgitation (HFpEF) heart failure with preserved ejection fraction Pulmonary nodule CHF exacerbation (Acute) Acute respiratory failure with hypoxia Acute diastolic CHF (congestive heart failure) Venous insufficiency Hypothyroidism Chronic anticoagulation Tricuspid regurgitation Edema (Acute) Right lower lobe pulmonary nodule Pleural effusion, bilateral Pleural effusion on right (Acute) Pleural effusion on left (Acute) Pleural effusion (Acute) 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) Elevated WBC count Bilateral foot pain (Chronic) Right leg swelling (Acute) Right leg pain Right foot pain (Acute) Ankle pain, right (Acute) Hypercholesterolemia (Chronic) Hyperglycemia (Chronic) Medical History Paroxysmal atrial fibrillation CML (chronic myelocytic leukemia) Hypothyroidism in adult HTN (hypertension) Elevated TSH Atrial fibrillation with controlled ventricular rate Atrial fibrillation, new onset Superficial thrombophlebitis Hyperprolactinemia Herpes zoster Diverticulosis Carpal tunnel syndrome Surgical History History of hysteroscopy H/O oral surgery Family History Other Prostate cancer Denies family history of Ovarian cancer Breast cancer Lung cancer Colorectal cancer Social History Smoking Status: Never smoker Second Hand Exposure: No; Do You Dip or Chew Tobacco: No; Hx Alcohol Use: No Hx Substance Use: No Preferred Language: Romanian Communication Ability: Effective Commercial Representative Required: No Beliefs That Will Affect Care: None marital status: Single Current Living Situation: Family current occupational status: retired Feels Safe at Home: Yes Childhood Exposure to Second-Hand Smoke: No Diet: regular Dental Care, Regularly: Yes Physical Activity Frequency: Does not Exercise Seatbelt Use: always Sunscreen Use: Yes Assistive Devices: None Allergies Allergies Allergy/AdvReac Type Severity Reaction Status Date / Time imatinib Allergy Intermediate horrible Unverified 07/28/25 11:19 rash and itching all over Home Meds Home Medications Medication Instructions Recorded Confirmed bosutinib 400 mg tablet (Bosulif) 400 mg PO QPM 11/05/23 07/28/25 cholecalciferol (vitamin D3) 1,250 1,250 mcg PO WK 06/24/25 07/28/25 mcg (50,000 unit) capsule Previous Rx's Medication Instructions Recorded atorvastatin 40 mg tablet 40 mg PO HS #90 tabs 04/22/25 apixaban 5 mg tablet (Eliquis) 5 mg PO BID #60 tabs 06/11/25 Oxygen Home #1 ea 07/02/25 levothyroxine 175 mcg capsule 175 mcg PO DAILYBB #90 caps 07/13/25 metoprolol tartrate 50 mg tablet 50 mg PO BID #60 tabs 08/06/25 amlodipine 5 mg-olmesartan 40 mg 1 tab PO QAM #90 tabs 08/17/25 tablet bumetanide 1 mg tablet 2 mg (2 x 1 mg) PO DAILY #60 tabs 08/18/25 Results & Data (ED) Vital Signs Vital Signs - 24 hr 09/08/25 20:20 09/08/25 21:17 09/08/25 21:17 Temperature 37 C Temperature Source Temporal Artery Scan Pulse Rate 69 Pulse Rate [Apical] 61 Pulse Rhythm Regular Pulse Rhythm [Apical] Regular Pulse Strength Normal Pulse Strength [Apical] Normal Respiratory Rate 20 18 Respiratory Effort / Characteristics Non-Labored Spontaneous Respiratory Depth Normal Normal Respiratory Pattern Regular Blood Pressure 135/67 Blood Pressure [Right Arm] 138/54 L Blood Pressure Mean 89 Blood Pressure Mean [Right Arm] 82 Blood Pressure Position Sitting Pulse Oximetry 92 93 93 Oxygen Delivery Method Room Air Room Air Room Air Sepsis Recent Fever Within 48 Hours No Sepsis New/Unexplained Change in Mental Status N/A Sepsis Action Taken by Nursing No Action Required 09/08/25 22:22 Temperature Temperature Source Pulse Rate 68 Pulse Rate [Apical] Pulse Rhythm Pulse Rhythm [Apical] Pulse Strength Pulse Strength [Apical] Respiratory Rate Respiratory Effort / Characteristics Respiratory Depth Respiratory Pattern Blood Pressure Blood Pressure [Right Arm] Blood Pressure Mean Blood Pressure Mean [Right Arm] Blood Pressure Position Pulse Oximetry Oxygen Delivery Method Sepsis Recent Fever Within 48 Hours Sepsis New/Unexplained Change in Mental Status Sepsis Action Taken by Nursing Laboratory Data 09/08/25 20:40 09/08/25 20:40 Lab Results 09/08/25 Range/Units 20:40 WBC 7.62 (4.8-10.8) K/ul RBC 4.78 (4.20-5.40) M/uL Hgb 12.6 (12.0-16.0) g/dL Hct 39.5 (37.0-47.0) % MCV 82.6 (80.0-100.0) fL MCH 26.4 (25.0-34.0) pg MCHC 31.9 L (32.0-36.0) g/dL RDW Std Deviation 54.4 H (36.4-46.3) fL RDW Coeff of Xuan 17.9 H (11.5-14.5) % Plt Count 318 (130-400) K/uL MPV 10.8 (9.4-12.4) fL Immature Gran % (Auto) 0.4 % Neut % (Auto) 76.5 % Lymph % (Auto) 9.4 % Sierra % (Auto) 10.6 % Eos % (Auto) 2.6 % Baso % (Auto) 0.5 % Neut # (Auto) 5.82 (1.40-6.50) K/uL Lymph # (Auto) 0.72 L (1.20-3.40) K/uL Sierra # (Auto) 0.81 H (0.11-0.59) K/uL Eos # (Auto) 0.20 (0.00-0.50) K/uL Baso # (Auto) 0.04 (0.00-0.20) K/uL Immature Gran # (Auto) 0.03 (0.01-0.20) K/uL PT 13.2 H (9.0-12.0) Seconds INR 1.3 H (0.9-1.1) APTT 31 (21-31) Seconds PTT Ratio 1.1 Sodium 138 (136-145) mmol/L Potassium 4.6 (3.5-5.1) mmol/L Chloride 112 H (98-107) mmol/L Carbon Dioxide 16 L (21-32) mmol/L Anion Gap 10 (3-11) BUN 77 H (6-23) mg/dl Creatinine 5.33 H* (0.6-1.2) mg/dl Est Cr Clr Drug Dosing 9.9 ml/min eGFR 8.14 BUN/Creatinine Ratio 14.4 (10-20) Glucose 107 H (70-99(Fasting)) mg/dl Calcium 9.1 (8.6-10.3) mg/dl Total Bilirubin 0.6 (0.2-1.0) mg/dl AST 12 L (13-39) U/L ALT 8 (7-52) U/L Alkaline Phosphatase 93 (34-104) U/L Troponin I High Sens 29.0 H (0-14) pg/ml Total Protein 7.5 (6.0-8.3) gm/dl Albumin 3.6 (3.4-5.0) gm/dl Globulin 3.9 (2.5-4.0) gm/dl Albumin/Globulin Ratio 0.9 (0.9-2) Administered Medications Sodium Chloride (Nss) 500 mls @ 999 mls/hr IV .Q31M ONE Stop: 09/08/25 23:26 Last Admin: 09/08/25 23:01 Dose: 999 mls/hr Documented By: [facility] Imaging Data Radiologist's Impression: Chest X-Ray 09/08/25 20:27 Exam(s): XR CXR 1 VIEW EXAM: XR Chest, 1 View CLINICAL HISTORY: Chest pain, nonspecific. TECHNIQUE: Frontal view of the chest. COMPARISON: 09/02/2025. FINDINGS: Heart is normal size. Mild pulmonary vascular congestion. Development of a posterior layering moderate right pleural effusion with associated basilar atelectasis versus infiltrate. Decreased left pleural effusion. Improved aeration left lung base with residual atelectasis versus infiltrate. Apical scarring. Bones are osteopenic and unchanged. IMPRESSION: Development of a posterior layering moderate right pleural effusion with associated basilar atelectasis versus infiltrate. Decreased left pleural effusion. Improved aeration left lung base with residual atelectasis versus infiltrate. Electronically signed by: Torin Mark M.D. 09/08/25 21:47 PM Discharge Plan Visit Data Chief Complaint: Vomiting Stated Complaint: FATIGUE, VOMITING, NO APPETITE SINCE END LAST WK ED Provider: Sari Monzon Discharge Problem: Acute renal failure, Pleural effusion on left, Pleural effusion on right, Edema Patient Disposition: Admitted As Inpatient Condition: Fair Prescriptions Prescriptions: No Action atorvastatin 40 mg tablet 40 mg PO HS Qty: 90 1RF Eliquis 5 mg tablet 5 mg PO BID Qty: 60 11RF levothyroxine 175 mcg capsule 175 mcg PO DAILYBB Qty: 90 3RF metoprolol tartrate 50 mg tablet 50 mg PO BID Qty: 60 5RF amlodipine-olmesartan 5-40 mg tablet 1 tab PO QAM Qty: 90 3RF bumetanide 1 mg tablet 2 mg PO DAILY Qty: 60 3RF Hold Instructions: hold until after blood work and cardio visit. Bosulif 400 mg tablet 400 mg PO QPM Hold Instructions: hold UNLESS your oncologist advises to resume Rx Instructions: must administer with a meal/food. Taken at 6:30PM cholecalciferol (vitamin D3) 1,250 mcg (50,000 unit) capsule 1,250 mcg PO WK Rx Instructions: Sunday (DME) Oxygen Home Liters Per Minute See Rx Instructions .ROUTE .MEDSUPPLY Qty: 1 0RF Rx Instructions: 2 liters of oxygen with activity/ambulation Referrals Referrals: Aristides Narayanan MD [Primary Care Provider] - Discharge Problem: Acute renal failure Qualifiers: Acute renal failure type: unspecified Qualified Code(s): N17.9 - Acute kidney failure, unspecified
[2025-09-09] MEDS ORDERED: ACETAMINOPHEN 325 MG TAB PO PRN (01:00)
[2025-09-09] MEDS ORDERED: ONDANSETRON INJ 2 MG/ML 2 ML VIAL IV PRN (01:00)
[2025-09-09] MEDS: LACTATED RINGER'S 1,000 ML IV SCH (01:18)
[2025-09-09 01:43] LABS: Base Excess VBG -11.0 mEq/L; HCO3 VBG 15 mmol/L; Oxygen Saturation VBG < 60.0 %; PCO2 VBG 35 mmHg (38-50); PO2 VBG 29 mmHg; pH VBG 7.25 (7.36-7.41)
[2025-09-09 01:58] LABS: Appearance Urine Clear (Clear); Bacteria Urine Automated None Seen (None Seen); Cast Urine Automated >20 /lpf (0-2); Epithelial Cell Urine Auto 0-2 /hpf (0-2); Glucose Urine UA Negative (Negative); RBC Urine Automated 0-2 /hpf (0-2); WBC Urine Automated 0-5 /hpf (0-5)
[2025-09-09 02:04] LABS: Creatine Kinase 56.0 U/L (26-192); Magnesium 2.6 mg/dl (1.7-2.4)
--- NOTE | 2025-09-09 02:06 | History & Physical Report ---
Date of Service September 08, 2025 Assessment & Plan (1) Acute renal failure: (2) Pleural effusion: (3) CML (chronic myelocytic leukemia): (4) Pulmonary hypertension: (5) Paroxysmal atrial fibrillation: (6) Hypothyroidism: (7) Hypercholesterolemia: Plan 70yo female with history of CML on Bosutinib (TKI) therapy, paroxysmal atrial fibrillation on Apixaban anticoagulation presenting with one week of generalized weakness and fatigue as well as nausea and decreased oral intake. #Acute renal failure - patient with progressive decline in renal function since 09/2023. At that time her baseline Cr was appx 1. Since then has steadily declined. During her last hospital admission her presenting Cr was 1.93 which peaked at 2.64 following aggressive diuresis. Patient's ARB, diuretics and Bosutinib were placed on hold. Some improvement in her Cr on repeat labs - on 07/28/25 Cr was 1.95. Presenting today with acute on chronic renal failure - Cr of 5.33. Patient with metabolic acidosis as well with HCO3=16. pH=7.25. Likely multifactorial - volume depletion in the setting of diuretic use, vomiting, chronic diarrhea and decreased oral intake. Medication effects with Olmesartan, Bumex. Recent thoracenteses performed outpatient, patient reports having 2L of pleural fluid removed recently (1L from each lung) - question post- thoracentesis circulatory dysfunction? -Admit to PCU -Place Champagne catheter -Strict intake/output monitoring -Daily standing weights -Check urine microscopy -Check creatinine kinase -Will hold potentially nephrotoxic agents - Bumex, Olmesartan, Bosutinib for now -Gentle volume expansion with LR at 100mL/hr x 2L ordered -Repeat CXR in AM to evaluate effusions -NaHCO3 650mg po TID x 3 days -BMP q 8 hours -If no improvement in renal function or decline in UOP will need Nephrology consultation #Pleural effusions - recurrent. Noted on CXR performed in the ER. Patient with adequate oxygenation now on room air. Likely secondary to Bosutinib therapy -Hold Bosutinib -Repeat CXR in the AM -Closely monitor oxygenation -Patient will likely benefit from thoracentesis prior to discharge. She is on Apixaban anticoagulation - 5mg po BID. Last taken 09/08/25 AM dose. Will hold Apixaban for now. #CML - patient follows with Oncology. She is on Bosutinib therapy. Concern that this medication is contributing to patient's recurrent pleural effusions, possibly contributing to patient's pulmonary hypertension -Hold Bosutinib for now #Pulmonary hypertension - patient is currently undergoing workup for pulmonary hypertension. Most recent echocardiogram performed on 09/02/25 with RVSP 50- 60mmHg -Keep followup appointment with [facility] [place] [facility] [place]. Leonidas Thompson #Hypothyroidism - TSH normal in May -Repeat TSH -Continue Synthroid 175mcg po daily #Elevated troponin - chronic. Patient denies chest pain -Repeat troponin with AM labs -EKG now -Telemetry monitoring #Paroxysmal atrial fibrillation - rate controlled. Patient on anticoagulation with Apixaban -Continue Metoprolol 50mg po BID -Hold Apixaban for now for possible thoracentesis during hospital stay #Hypertension -Hold Bumex -Hold Olmesartann -Continue Amlodipine - will increase from 5mg po daily to 10mg po daily -Continue Metoprolol 50mg po BID -Monitor #Hyperlipidemia -Continue Atorvastatin 40mg po qHS F/E/N - LR at 100mL/hr x 2L, BMP q 8 hours to assess renal function and electrolytes, Renal diet for now Ppx - SCDs Code - Full Dispo - Admit to PCU Admission and Anticipated Discharge Date Admission Date: September 08, 2025 History of Present Illness Chief Complaint: Fatigue, vomiting, po intolerance Primary Care Provider: Aristides Narayanan MD Pattie Ackerman is a 70yo female with history of CML on Bosutinib (tyrosine kinase inhibitor), paroxysmal atrial fibrillation on Apixaban anticoagulation, Hypothyroidism and HFpEF presenting with fatigue, nausea, vomiting and poor oral intake. Patient with history of CML originally diagnosed in October 2022. She was treated with Imatinib x 2 months which was discontinued due to development of a pruritic rash. Imatinib was tried again but again caused pruritis and rash. She was then tried on Dasatinib which caused her a pruritic rash as well as pleural effusions therefore this medication was discontinued. She was tried again on Dasatinib and again developed dyspnea, volume overload and pleural effusions requiring drainage (drained 08/08/2023 - 800mL serous fluid from LEFT- Pathology NEGATIVE for malignancy). Patient then started on Bosutinib in 08/2023 and has been taking this medication since. Patient was recently admitted to [facility] from 06/24 - 07/02/25 after presenting with shortness of breath and orthopnea. Prior to this hospitalization her diuretics were reduced due to worsening renal function. An echocardiogram was performed and patient was found to have severe pulmonary hypertension with PA pressure > 60mmHg. Patient was diuresed 9-10 kg and unfortunately developed an EMMETT - thought to be secondary to overdiuresis. She had a thoracentesis performed on 07/01/25 with 800mL of fluid removed from the RIGHT lung. Patient's Bosutinib was placed on hold as was her Amlodipine/Olmesartan. She was ultimately discharged home on 07/02/25 with instruction to resume her Bumex on 07/04. She had a 2-step oxygen test performed and patient qualified for 2L O2 with ambulation/activity. Hematology/Oncology on 07/06/25 and her Bosutinib was resumed. Heart Failure on 07/07/25 - she is to continue on Bumex 1gm po daily. Dry weight estimated to be appx 175#. Pulmonary on 07/14/25. Patient was referred to [facility] [place] [facility] [facility] for further workup such as right heart catheterization. Heart Failure again on 07/23/25 and her Amlodipine/Olmesartan was resumed. Cardiology on 07/28/25 She was seen by Pulmonary Hypertension Clinic at [facility] on 08/20/25 - Dr. Leonidas Thompson - in summary feels that patient's PH likely in part due to recurrent pleural effusions likely from Bosutinib therapy. He recommends discontinuation of this medication if feasible with reevaluation with echocardiogram in 3 months -Six minute walk test 08/20/25 - walked 270 feet in 6 minutes on room air with O2 of 84% - resting saturation 90% -Spirometry 08/20/25 with no obstructive defect, no significant bronchodilator response, low FVC possibly due to restrictive pathology, moderately impaired diffusion capacity -CT imaging with bilateral pleural effusions -Repeat echo 09/03/2025 with mild LVH, Grade I dysfunction, borderline RV enlargement, mildly dilated LA, RA, moderate MR, RVSP of 50-60mmHg Reports having an outpatient thoracentesis performed on 09/04/25 with one liter removed and again on 09/07/25 with one liter removed. She presents today with one week of fatigue, nausea, vomiting and po intolerance. Also reports decreased urination over the last week - urinates only a small amount once daily. She has chronic diarrhea which is unchanged - no blood. Vomits 1-2 times daily - no blood. Chronic bilateral LE edema - unchanged. Denies pain, redness. No abdominal pain or distention. No chest pain, palpitations. She reports weight loss of approximately 10 pounds in the last two weeks Continues to take her medications as prescribed Allergies Allergy/AdvReac Type Severity Reaction Status Date / Time imatinib Allergy Intermediate horrible Unverified 07/28/25 11:19 rash and itching all over Home Medications Medication Instructions Recorded Confirmed Type bosutinib 400 mg tablet (Bosulif) 400 mg PO QPM 11/05/23 09/08/25 History atorvastatin 40 mg tablet 40 mg PO HS #90 tabs 04/22/25 09/08/25 Rx apixaban 5 mg tablet (Eliquis) 5 mg PO BID #60 tabs 06/11/25 09/08/25 Rx cholecalciferol (vitamin D3) 1,250 1,250 mcg PO WK 06/24/25 09/08/25 History mcg (50,000 unit) capsule Oxygen Home #1 ea 07/02/25 07/28/25 Rx levothyroxine 175 mcg capsule 175 mcg PO DAILYBB #90 caps 07/13/25 09/08/25 Rx metoprolol tartrate 50 mg tablet 50 mg PO BID #60 tabs 08/06/25 09/08/25 Rx amlodipine 5 mg-olmesartan 40 mg 1 tab PO QAM #90 tabs 08/17/25 09/08/25 Rx tablet bumetanide 1 mg tablet 2 mg (2 x 1 mg) PO DAILY #60 tabs 08/18/25 09/08/25 Rx Past Med/Surg History Problem List (Updated 09/09/25 @ 01:44 by Teri Ivory DO) Acute renal failure (Acute) Encounter for monitoring diuretic therapy Vaccination hesitancy by patient Right-sided congestive heart failure EMMETT (acute kidney injury) Stage 3b chronic kidney disease Acute on chronic heart failure with preserved ejection fraction Hypoxia (Acute) Pleural effusion (Acute) CHF (congestive heart failure) (Acute) Vitamin D deficiency Mitral regurgitation (HFpEF) heart failure with preserved ejection fraction Pulmonary nodule CHF exacerbation (Acute) Acute respiratory failure with hypoxia Acute diastolic CHF (congestive heart failure) Venous insufficiency Hypothyroidism Chronic anticoagulation Tricuspid regurgitation Edema (Acute) Right lower lobe pulmonary nodule Pleural effusion, bilateral Bilateral foot pain (Chronic) Right leg swelling (Acute) Right leg pain Right foot pain (Acute) Hypercholesterolemia (Chronic) Hyperglycemia (Chronic) Medical History (Updated 09/09/25 @ 01:44 by Teri Ivory DO) Pulmonary hypertension Paroxysmal atrial fibrillation CML (chronic myelocytic leukemia) Hypothyroidism in adult HTN (hypertension) Superficial thrombophlebitis Hyperprolactinemia Herpes zoster Diverticulosis Carpal tunnel syndrome Surgical History History of hysteroscopy H/O oral surgery Family History Other Prostate cancer Denies family history of Ovarian cancer Breast cancer Lung cancer Colorectal cancer Social History Smoking Status: Never smoker Second Hand Exposure: No; Do You Dip or Chew Tobacco: No; Hx Alcohol Use: No Hx Substance Use: No Preferred Language: [place] Verdean Communication Ability: Effective Exercise Instruct Required: No Beliefs That Will Affect Care: None marital status: Single Current Living Situation: Family current occupational status: retired Feels Safe at Home: Yes Childhood Exposure to Second-Hand Smoke: No Diet: regular Dental Care, Regularly: Yes Physical Activity Frequency: Does not Exercise Seatbelt Use: always Sunscreen Use: Yes Assistive Devices: None Review of Systems Review of Systems: All systems reviewed & are unremarkable except as noted in HPI & below Physical Exam Physical Exam: General: patient resting comfortably, NAD, chronically ill in appearance, AA&O x 4 Skin: warm, dry, intact, no rashes or lesions HEENT: NC/AT, PERRL, EOMI, anicteric sclera, conjunctiva without injection, external ear normal to inspection and nontender, nares patent, moist mucus membranes, dentition intact, no oropharyngeal lesions, neck supple, trachea midline, no LAD, no thyromegaly, no JVD Heart: +S1/S2, irregularly irregular, no m/r/g Lungs: equal air entry bilaterally, no rales/rhonchi/wheezes, diminished breath sounds in bilateral bases Abd: +BS, soft, NT/ND, no masses/organomegaly/ascites Ext: warm, 2+ pulses in UE/LE bilaterally, no clubbing/cyanosis, chronic bilateral LE edema, non-pitting Neuro: nonfocal, patient AA&O x 4, speech intact, no facial droop, moving all extremities on command with equal strength 5/5 Results & Data Results & Data Vital Signs (Past 12 Hours) Vital Signs Temp Pulse Pulse Resp BP BP Pulse Ox 09/09/25 00:27 09/08/25 22:22 68 09/08/25 21:17 93 09/08/25 21:17 61 18 138/54 L 93 09/08/25 20:20 37 C 69 20 135/67 92 O2 Del Method 09/09/25 00:27 Room Air 09/08/25 22:22 09/08/25 21:17 Room Air 09/08/25 21:17 Room Air 09/08/25 20:20 Room Air Laboratory Results Laboratory Results WBC 7.62 K/ul (4.8-10.8) 09/08/25 20:40 RBC 4.78 M/uL (4.20-5.40) 09/08/25 20:40 Hgb 12.6 g/dL (12.0-16.0) 09/08/25 20:40 Hct 39.5 % (37.0-47.0) 09/08/25 20:40 MCV 82.6 fL (80.0-100.0) 09/08/25 20:40 MCH 26.4 pg (25.0-34.0) 09/08/25 20:40 MCHC 31.9 g/dL (32.0-36.0) L 09/08/25 20:40 RDW Std Deviation 54.4 fL (36.4-46.3) H 09/08/25 20:40 RDW Coeff of Xuan 17.9 % (11.5-14.5) H 09/08/25 20:40 Plt Count 318 K/uL (130-400) 09/08/25 20:40 MPV 10.8 fL (9.4-12.4) 09/08/25 20:40 Immature Gran % (Auto) 0.4 % 09/08/25 20:40 Neut % (Auto) 76.5 % 09/08/25 20:40 Lymph % (Auto) 9.4 % 09/08/25 20:40 [place] % (Auto) 10.6 % 09/08/25 20:40 Eos % (Auto) 2.6 % 09/08/25 20:40 Baso % (Auto) 0.5 % 09/08/25 20:40 Neut # (Auto) 5.82 K/uL (1.40-6.50) 09/08/25 20:40 Lymph # (Auto) 0.72 K/uL (1.20-3.40) L 09/08/25 20:40 [place] # (Auto) 0.81 K/uL (0.11-0.59) H 09/08/25 20:40 Eos # (Auto) 0.20 K/uL (0.00-0.50) 09/08/25 20:40 Baso # (Auto) 0.04 K/uL (0.00-0.20) 09/08/25 20:40 Immature Gran # (Auto) 0.03 K/uL (0.01-0.20) 09/08/25 20:40 PT 13.2 Seconds (9.0-12.0) H 09/08/25 20:40 INR 1.3 (0.9-1.1) H 09/08/25 20:40 APTT 31 Seconds (21-31) 09/08/25 20:40 PTT Ratio 1.1 09/08/25 20:40 Sodium 138 mmol/L (136-145) 09/08/25 20:40 Potassium 4.6 mmol/L (3.5-5.1) 09/08/25 20:40 Chloride 112 mmol/L (98-107) H 09/08/25 20:40 Carbon Dioxide 16 mmol/L (21-32) L 09/08/25 20:40 Anion Gap 10 (3-11) 09/08/25 20:40 BUN 77 mg/dl (6-23) H 09/08/25 20:40 Creatinine 5.33 mg/dl (0.6-1.2) H* 09/08/25 20:40 Est Cr Clr Drug Dosing 9.9 ml/min 09/08/25 20:40 eGFR 8.14 09/08/25 20:40 BUN/Creatinine Ratio 14.4 (10-20) 09/08/25 20:40 Glucose 107 mg/dl (70-99(Fasting)) H 09/08/25 20:40 Calcium 9.1 mg/dl (8.6-10.3) 09/08/25 20:40 Total Bilirubin 0.6 mg/dl (0.2-1.0) 09/08/25 20:40 AST 12 U/L (13-39) L 09/08/25 20:40 ALT 8 U/L (7-52) 09/08/25 20:40 Alkaline Phosphatase 93 U/L (34-104) 09/08/25 20:40 Troponin I High Sens 26.6 pg/ml (0-14) H 09/08/25 22:33 Total Protein 7.5 gm/dl (6.0-8.3) 09/08/25 20:40 Albumin 3.6 gm/dl (3.4-5.0) 09/08/25 20:40 Globulin 3.9 gm/dl (2.5-4.0) 09/08/25 20:40 Albumin/Globulin Ratio 0.9 (0.9-2) 09/08/25 20:40 Impressions Chest X-Ray 09/08/25 20:27 Exam(s): XR CXR 1 VIEW EXAM: XR Chest, 1 View CLINICAL HISTORY: Chest pain, nonspecific. TECHNIQUE: Frontal view of the chest. COMPARISON: 09/02/2025. FINDINGS: Heart is normal size. Mild pulmonary vascular congestion. Development of a posterior layering moderate right pleural effusion with associated basilar atelectasis versus infiltrate. Decreased left pleural effusion. Improved aeration left lung base with residual atelectasis versus infiltrate. Apical scarring. Bones are osteopenic and unchanged. IMPRESSION: Development of a posterior layering moderate right pleural effusion with associated basilar atelectasis versus infiltrate. Decreased left pleural effusion. Improved aeration left lung base with residual atelectasis versus infiltrate. Electronically signed by: Torin Mark M.D. 09/08/25 21:47 PM Code Status & VTE Plan VTE Prophylaxis Plan VTE Prophylaxis will be ordered: Yes PG Care Time/CCT Total # of Minutes Spent Total Time Spent with Patient: Total time spent is greater than 50% in coordination of care (as documented) at patient's floor/unit and/or counseling patient: Coding Level of Care Code 69250 INT INP/OBS CARE 3/75MIN Diagnoses Acute renal failure N17.9 Acute renal failure type: unspecified Pleural effusion J90 CML (chronic myelocytic leukemia) C92.10 Pulmonary hypertension I27.20 Paroxysmal atrial fibrillation I48.0 Hypothyroidism E03.9 Hypercholesterolemia E78.00 (1) Acute renal failure Acute renal failure type: unspecified Qualified Code(s): N17.9 - Acute kidney failure, unspecified
[2025-09-09 02:20] LABS: Thyroid Stimulating Hormone 0.593 uIu/ml (0.300-4.500)
[2025-09-09] MEDS: LEVOTHYROXINE SODIUM 175 MCG TABLET PO SCH (05:44)
[2025-09-09 06:15] LABS: Hematocrit (blood only) 33.1 % (37.0-47.0); Hemoglobin 10.6 g/dL (12.0-16.0); Mean Corpuscular Hemoglobin 26.3 pg (25.0-34.0); Mean Corpuscular Volume 82.1 fL (80.0-100.0); Platelet Count 244 K/uL (130-400); RDW Standard Deviation 53.3 fL (36.4-46.3); Red Blood Count 4.03 M/uL (4.20-5.40); White Blood Count 6.88 K/ul (4.8-10.8)
[2025-09-09 07:40] LABS: Anion Gap 9.0 (3-11); Blood Urea Nitrogen 80.0 mg/dl (6-23); Calcium 8.7 mg/dl (8.6-10.3); Carbon Dioxide 15.0 mmol/L (21-32); Chloride 117.0 mmol/L (98-107); Creatinine Clr Calc Pharmacy 10.8 ml/min; Glucose 93.0 mg/dl (70-99(Fasting)); Potassium 4.5 mmol/L (3.5-5.1); Sodium 141.0 mmol/L (136-145)
--- NOTE | 2025-09-09 08:03 | XRay Report ---
EXAM: XR chest 1V portable CLINICAL HISTORY: Assess pleural fluid. TECHNIQUE: An X-ray image of the chest is obtained in AP projection. COMPARISON: 09/02/2025 CR. FINDINGS: Pulmonary Parenchyma: Homogeneous opacification of right mid and lower zones with blunting of right costophrenic angle. Small atelectatic bands traversing in the left lower zone. Minimal pleural reaction causing the blunting of left costophrenic angle. Heart and Mediastinum: Heart size could not be properly assessed. No mediastinal widening or masses. No hilar or mediastinal lymphadenopathy. Bony Thorax: Bony thorax appears intact without fractures or deformities. Soft Tissues: Soft tissues overlying the chest wall are unremarkable. IMPRESSION: 1. New, homogeneous opacification of right mid and lower zones with blunting of right costophrenic angle. Mild to moderate pleural effusion. 2. Interval regressed, small atelectatic band traversing in the left lower zone. 3. Minimal pleural reaction causing the blunting of left costophrenic angle. Pleural thickening (stable). Electronically signed by Juan Jose Chavez 09-09-2025 08:02 AM
[2025-09-09] MEDS: SODIUM BICARBONATE 650 MG TAB PO SCH (08:38)
[2025-09-09] MEDS: METOPROLOL TARTRATE 50 MG TAB PO SCH (08:39)
--- NOTE | 2025-09-09 11:46 | Hospitalist Progress Note ---
Date of Service September 09, 2025 Assessment & Plan (1) Acute renal failure: (2) Pleural effusion: (3) CML (chronic myelocytic leukemia): (4) Pulmonary hypertension: (5) Paroxysmal atrial fibrillation: (6) Hypothyroidism: (7) Hypercholesterolemia: Plan 70yo female with history of CML on Bosutinib (TKI) therapy, paroxysmal atrial fibrillation on Apixaban anticoagulation presenting with one week of generalized weakness and fatigue as well as nausea and decreased oral intake. #Acute renal failure - patient with progressive decline in renal function since 09/2023. At that time her baseline Cr was appx 1. Since then has steadily declined. During her last hospital admission her presenting Cr was 1.93 which peaked at 2.64 following aggressive diuresis. Patient's ARB, diuretics and Bosutinib were placed on hold. Some improvement in her Cr on repeat labs - on 07/28/25 Cr was 1.95. Presenting with acute on chronic renal failure - Cr of 5.33. Patient with metabolic acidosis as well with HCO3=16. pH=7.25. Likely multifactorial - volume depletion in the setting of diuretic use, vomiting, chronic diarrhea and decreased oral intake. Medication effects with Olmesartan, Bumex. Recent thoracenteses performed outpatient, patient reports having 2L of pleural fluid removed recently (1L from each lung) - question post- thoracentesis circulatory dysfunction? -Started on IV Fluids -Will hold potentially nephrotoxic agents - Bumex, Olmesartan, Bosutinib for now -Repeat CXR to evaluate effusions -NaHCO3 650mg po TID x 3 days -BMP q 8 hours -There has been a slight improvement in renal function, creatinine now 4.8 #Pleural effusions - recurrent. Noted on CXR performed in the ER. Patient with adequate oxygenation now on room air. Likely secondary to Bosutinib therapy -Hold Bosutinib -Repeat CXR in the AM -Closely monitor oxygenation -Patient will likely benefit from thoracentesis prior to discharge. She is on Apixaban anticoagulation - 5mg po BID. Last taken 09/08/25 AM dose. Will hold Apixaban for now. #CML - patient follows with Oncology. She is on Bosutinib therapy. Concern that this medication is contributing to patient's recurrent pleural effusions, possibly contributing to patient's pulmonary hypertension -Hold Bosutinib for now #Pulmonary hypertension - patient is currently undergoing workup for pulmonary hypertension. Most recent echocardiogram performed on 09/02/25 with RVSP 50-60mmHg -Keep followup appointment with [facility] Clinic at [facility] [place] - Dr. Leonidas Thompson #Hypothyroidism - TSH normal in May -Repeat TSH -Continue Synthroid 175mcg po daily #Elevated troponin - chronic. Patient denies chest pain -Repeat troponin with AM labs -EKG now -Telemetry monitoring #Paroxysmal atrial fibrillation - rate controlled. Patient on anticoagulation with Apixaban -Continue Metoprolol 50mg po BID -Hold Apixaban for now for possible thoracentesis during hospital stay #Hypertension Blood pressure is under good control -Hold Bumex -Hold Olmesartann -Continue Amlodipine - -Continue Metoprolol 50mg po BID -Monitor #Hyperlipidemia -Continue Atorvastatin 40mg po qHS F/E/N - LR at 100mL/hr x 2L, BMP q 8 hours to assess renal function and electrolytes, Renal diet for now Ppx - SCDs, Heparin SC Code - Full Dispo - Admit to PCU Admission and Anticipated Discharge Date Admission Date: September 08, 2025 Subjective Patient seen and examined, lying quietly in bed, says she has poor appetite but slightly improved Review of Systems 2 Review of Systems: The patient is awake, alert and oriented 3, well developed and well nourished, normocephalic and atraumatic, lying in bed and in no acute distress. HEENT--PERRL, EOMI, mucous membranes and oropharynx mildly dry Neck--supple. No JVD. No bruits. Thyroid normal, trachea midline, no adenopathy. Heart--normal S1 and S2. No murmurs, rubs or gallops. Lungs--clear bilaterally, no respiratory distress, no accessory muscle use. Abdomen--normal bowel sounds and soft. Extremities--no cyanosis or clubbing. No edema. Dermatologic--normal skin turgor, normal color, no abnormal lymph nodes, no rash. Neurologic--cranial nerves II through XII grossly intact. Rheumatologic--normal range of motion. Psychiatric--normal affect. Results & Data Results & Data Vital Signs (Past 12 Hours) Vital Signs Temp Pulse Resp BP BP Pulse Ox O2 Del Method 09/09/25 10:54 97.7 F 74 17 119/61 92 Nasal Cannula 09/09/25 08:00 Nasal Cannula 09/09/25 07:39 97.3 F L 59 L 18 114/57 L 91 Nasal Cannula 09/09/25 03:21 97.3 F L 72 18 115/58 L 92 Nasal Cannula 09/09/25 01:00 97.7 F 68 20 145/74 H 91 Room Air 09/09/25 01:00 Nasal Cannula 09/09/25 00:27 Room Air O2 Flow Rate 09/09/25 10:54 2 09/09/25 08:00 2 09/09/25 07:39 09/09/25 03:21 2.0 09/09/25 01:00 09/09/25 01:00 2 09/09/25 00:27 PG Care Time/CCT Total # of Minutes Spent Total Time Spent with Patient: Total time spent is greater than 50% in coordination of care (as documented) at patient's floor/unit and/or counseling patient: Coding Level of Care Code 09465 SUB INP/OBS CARE 2/35MIN Diagnoses Acute renal failure N17.9 Acute renal failure type: unspecified Pleural effusion J90 CML (chronic myelocytic leukemia) C92.10 Pulmonary hypertension I27.20 Paroxysmal atrial fibrillation I48.0 Hypothyroidism E03.9 Hypercholesterolemia E78.00 Time Spent (min) 35 (1) Acute renal failure Acute renal failure type: unspecified Qualified Code(s): N17.9 - Acute kidney failure, unspecified
[2025-09-09 13:03] LABS: Anion Gap 10.0 (3-11); Blood Urea Nitrogen 71.0 mg/dl (6-23); Calcium 8.8 mg/dl (8.6-10.3); Carbon Dioxide 17.0 mmol/L (21-32); Chloride 114.0 mmol/L (98-107); Creatinine Clr Calc Pharmacy 11.7 ml/min; Glucose 104.0 mg/dl (70-99(Fasting)); Potassium 4.2 mmol/L (3.5-5.1); Sodium 141.0 mmol/L (136-145)
[2025-09-09] MEDS: HEPARIN SOD 5,000 UNIT/0.5 ML VIAL SQ SCH (13:55)
[2025-09-09] MEDS: ATORVASTATIN 40 MG TAB PO SCH (20:31)
[2025-09-09 21:27] LABS: Anion Gap 9.0 (3-11); Blood Urea Nitrogen 66.0 mg/dl (6-23); Calcium 8.7 mg/dl (8.6-10.3); Carbon Dioxide 16.0 mmol/L (21-32); Chloride 116.0 mmol/L (98-107); Creatinine Clr Calc Pharmacy 12.3 ml/min; Glucose 100.0 mg/dl (70-99(Fasting)); Potassium 4.4 mmol/L (3.5-5.1); Sodium 141.0 mmol/L (136-145)
--- NOTE | 2025-09-09 21:54 | Electrocardiogram Report ---
Test Reason : Blood Pressure : */* mmHG Vent. Rate : 75 BPM Atrial Rate : 75 BPM P-R Int : 224 ms QRS Dur : 94 ms QT Int : 386 ms P-R-T Axes : * 68 60 degrees QTcB Int : 431 ms Sinus rhythm with marked sinus arrhythmia with 1st degree A-V block Otherwise normal ECG When compared with ECG of 24-Jun-2025 12:40, No significant change was found Confirmed by Mainor Olivares ([id number]) on 09/09/2025 9:53:55 PM Referred By: REFERRED SELF Confirmed By: Mainor Olivares
[2025-09-10 06:15] LABS: Anion Gap 8.0 (3-11); Blood Urea Nitrogen 66.0 mg/dl (6-23); Calcium 8.7 mg/dl (8.6-10.3); Carbon Dioxide 17.0 mmol/L (21-32); Chloride 118.0 mmol/L (98-107); Creatinine Clr Calc Pharmacy 14.0 ml/min; Glucose 92.0 mg/dl (70-99(Fasting)); Potassium 4.5 mmol/L (3.5-5.1); Sodium 143.0 mmol/L (136-145)
--- NOTE | 2025-09-10 10:16 | Hospitalist Progress Note ---
Date of Service September 10, 2025 Assessment & Plan (1) Acute renal failure: (2) Pleural effusion: (3) CML (chronic myelocytic leukemia): (4) Pulmonary hypertension: (5) Paroxysmal atrial fibrillation: (6) Hypothyroidism: (7) Hypercholesterolemia: Plan 70yo female with history of CML on Bosutinib (TKI) therapy, paroxysmal atrial fibrillation on Apixaban anticoagulation presenting with one week of generalized weakness and fatigue as well as nausea and decreased oral intake. #Acute renal failure - patient with progressive decline in renal function since 09/2023. At that time her baseline Cr was appx 1. Since then has steadily declined. During her last hospital admission her presenting Cr was 1.93 which peaked at 2.64 following aggressive diuresis. Patient's ARB, diuretics and Bosutinib were placed on hold. Some improvement in her Cr on repeat labs - on 07/28/25 Cr was 1.95. Presenting with acute on chronic renal failure - Cr of 5.33. Patient with metabolic acidosis as well with HCO3=16. pH=7.25. Likely multifactorial - volume depletion in the setting of diuretic use, vomiting, chronic diarrhea and decreased oral intake. Medication effects with Olmesartan, Bumex. Recent thoracenteses performed outpatient, patient reports having 2L of pleural fluid removed recently (1L from each lung) - question post- thoracentesis circulatory dysfunction? -Started on IV Fluids -Will hold potentially nephrotoxic agents - Bumex, Olmesartan, Bosutinib for now -Repeat CXR to evaluate effusions -NaHCO3 650mg po TID x 3 days -BMP q 8 hours -There has been a slight improvement in renal function, creatinine now 3.77 #Pleural effusions - recurrent. Noted on CXR performed in the ER. Patient with adequate oxygenation now on room air. Likely secondary to Bosutinib therapy -Hold Bosutinib -Repeat CXR in the AM -Closely monitor oxygenation -Patient will likely benefit from thoracentesis prior to discharge. She is on Apixaban anticoagulation - 5mg po BID. Last taken 09/08/25 AM dose. Will hold Apixaban for now. consult IR for thoracentesis #CML - patient follows with Oncology. She is on Bosutinib therapy. Concern that this medication is contributing to patient's recurrent pleural effusions, possibly contributing to patient's pulmonary hypertension -Hold Bosutinib for now #Pulmonary hypertension - patient is currently undergoing workup for pulmonary hypertension. Most recent echocardiogram performed on 09/02/25 with RVSP 50-60mmHg -Keep followup appointment with PH Clinic at [facility] [place] - Dr. Leonidas Thompson #Hypothyroidism - TSH normal in May -Repeat TSH -Continue Synthroid 175mcg po daily #Elevated troponin - chronic. Patient denies chest pain -Repeat troponin with AM labs -EKG now -Telemetry monitoring #Paroxysmal atrial fibrillation - rate controlled. Patient on anticoagulation with Apixaban -Continue Metoprolol 50mg po BID -Hold Apixaban for now for possible thoracentesis during hospital stay #Hypertension Blood pressure is under good control -Hold Bumex -Hold Olmesartann -Continue Amlodipine - -Continue Metoprolol 50mg po BID -Monitor #Hyperlipidemia -Continue Atorvastatin 40mg po qHS Ppx - SCDs, Heparin SC Code - Full Dispo - hopefully d/c in the next 48 hrs Admission and Anticipated Discharge Date Admission Date: September 08, 2025 Subjective Patient seen and examined, lying quietly in bed, says she has poor appetite but slightly improved Review of Systems Review of Systems: All systems reviewed are negative, apart from the ones contained in the history. Physical Exam Physical Exam: The patient is awake, alert and oriented 3, well developed and well nourished, normocephalic and atraumatic, lying in bed and in no acute distress. HEENT--PERRL, EOMI, mucous membranes and oropharynx mildly dry Neck--supple. No JVD. No bruits. Thyroid normal, trachea midline, no adenopathy. Heart--normal S1 and S2. No murmurs, rubs or gallops. Lungs--clear bilaterally, no respiratory distress, no accessory muscle use. Abdomen--normal bowel sounds and soft. Extremities--no cyanosis or clubbing. No edema. Dermatologic--normal skin turgor, normal color, no abnormal lymph nodes, no rash. Neurologic--cranial nerves II through XII grossly intact. Rheumatologic--normal range of motion. Psychiatric--normal affect. Results & Data Results & Data Vital Signs (Past 12 Hours) Vital Signs Temp Pulse Pulse Resp BP Pulse Ox O2 Del Method 09/10/25 07:34 97.5 F L 64 19 136/55 L 91 Nasal Cannula 09/10/25 03:44 97.7 F 78 17 124/66 91 Nasal Cannula 09/09/25 23:55 98.1 F 77 17 138/58 L 91 Nasal Cannula 09/09/25 23:44 57 L 09/09/25 23:25 Nasal Cannula O2 Flow Rate 09/10/25 07:34 4 09/10/25 03:44 4 09/09/25 23:55 4 09/09/25 23:44 09/09/25 23:25 4 PG Care Time/CCT Total # of Minutes Spent Total Time Spent with Patient: Total time spent is greater than 50% in coordination of care (as documented) at patient's floor/unit and/or counseling patient: Coding Level of Care Code 10712 SUB INP/OBS CARE 2/35MIN Diagnoses Acute renal failure N17.9 Acute renal failure type: unspecified Pleural effusion J90 CML (chronic myelocytic leukemia) C92.10 Pulmonary hypertension I27.20 Paroxysmal atrial fibrillation I48.0 Hypothyroidism E03.9 Hypercholesterolemia E78.00 Time Spent (min) 35 (1) Acute renal failure Acute renal failure type: unspecified Qualified Code(s): N17.9 - Acute kidney failure, unspecified
[2025-09-11 05:09] LABS: Anion Gap 7.0 (3-11); Blood Urea Nitrogen 58.0 mg/dl (6-23); Calcium 8.7 mg/dl (8.6-10.3); Carbon Dioxide 19.0 mmol/L (21-32); Chloride 116.0 mmol/L (98-107); Creatinine Clr Calc Pharmacy 16.7 ml/min; Glucose 93.0 mg/dl (70-99(Fasting)); Potassium 4.4 mmol/L (3.5-5.1); Sodium 142.0 mmol/L (136-145)
--- NOTE | 2025-09-11 05:42 | Electrocardiogram Report ---
Test Reason : Blood Pressure : */* mmHG Vent. Rate : 63 BPM Atrial Rate : 63 BPM P-R Int : 192 ms QRS Dur : 88 ms QT Int : 394 ms P-R-T Axes : 109 46 69 degrees QTcB Int : 403 ms Sinus rhythm with Premature atrial complexes Otherwise normal ECG When compared with ECG of 24-Jun-2025 12:40, Premature atrial complexes are now Present Confirmed by Mainor Olivares ([id number]) on 09/11/2025 5:42:23 AM Referred By: REFERRED SELF Confirmed By: Mainor Olivares
--- NOTE | 2025-09-11 09:08 | Hospitalist Progress Note ---
Date of Service September 11, 2025 Assessment & Plan (1) Acute renal failure: (2) Pleural effusion: (3) CML (chronic myelocytic leukemia): (4) Pulmonary hypertension: (5) Paroxysmal atrial fibrillation: (6) Hypothyroidism: (7) Hypercholesterolemia: Plan 70yo female with history of CML on Bosutinib (TKI) therapy, paroxysmal atrial fibrillation on Apixaban anticoagulation presenting with one week of generalized weakness and fatigue as well as nausea and decreased oral intake. #Acute renal failure - patient with progressive decline in renal function since 09/2023. At that time her baseline Cr was appx 1. Since then has steadily declined. During her last hospital admission her presenting Cr was 1.93 which peaked at 2.64 following aggressive diuresis. Patient's ARB, diuretics and Bosutinib were placed on hold. Some improvement in her Cr on repeat labs - on 07/28/25 Cr was 1.95. Presenting with acute on chronic renal failure - Cr of 5.33. Patient with metabolic acidosis as well with HCO3=16. pH=7.25. Likely multifactorial - volume depletion in the setting of diuretic use, vomiting, chronic diarrhea and decreased oral intake. Medication effects with Olmesartan, Bumex. Recent thoracenteses performed outpatient, patient reports having 2L of pleural fluid removed recently (1L from each lung) - question post- thoracentesis circulatory dysfunction? -Started on IV Fluids -Will hold potentially nephrotoxic agents - Bumex, Olmesartan, Bosutinib for now -Repeat CXR to evaluate effusions -NaHCO3 650mg po TID x 3 days -BMP q 8 hours -There has been a slight improvement in renal function, creatinine now 3.77 #Pleural effusions - recurrent. Noted on CXR performed in the ER. Patient with adequate oxygenation now on room air. Likely secondary to Bosutinib therapy -Hold Bosutinib -Repeat CXR in the AM -Closely monitor oxygenation -Patient will likely benefit from thoracentesis prior to discharge. She is on Apixaban anticoagulation - 5mg po BID. Last taken 09/08/25 AM dose. Will hold Apixaban for now. consult IR for thoracentesis, possibly today #CML - patient follows with Oncology. She is on Bosutinib therapy. Concern that this medication is contributing to patient's recurrent pleural effusions, possibly contributing to patient's pulmonary hypertension -Hold Bosutinib for now #Pulmonary hypertension - patient is currently undergoing workup for pulmonary hypertension. Most recent echocardiogram performed on 09/02/25 with RVSP 50-60mmHg -Keep followup appointment with PH Clinic at [facility] [place] - Dr. Leonidas Thompson #Hypothyroidism - TSH normal in May -Repeat TSH -Continue Synthroid 175mcg po daily #Elevated troponin - chronic. Patient denies chest pain -Repeat troponin with AM labs -EKG now -Telemetry monitoring #Paroxysmal atrial fibrillation - rate controlled. Patient on anticoagulation with Apixaban -Continue Metoprolol 50mg po BID -Hold Apixaban for now for possible thoracentesis during hospital stay #Hypertension Blood pressure is under good control -Hold Bumex -Hold Olmesartann -Continue Amlodipine - -Continue Metoprolol 50mg po BID -Monitor #Hyperlipidemia -Continue Atorvastatin 40mg po qHS Deconditioning Will consult PT/OT Ppx - SCDs, Heparin SC Code - Full Dispo - hopefully d/c in the next 24 hrs Admission and Anticipated Discharge Date Admission Date: September 08, 2025 Subjective Patient seen and examined, lying quietly in bed, says she has poor appetite but slightly improved, still somewhat weak Review of Systems Review of Systems: All systems reviewed are negative, apart from the ones contained in the history. Physical Exam Physical Exam: The patient is awake, alert and oriented 3, well developed and well nourished, normocephalic and atraumatic, lying in bed and in no acute distress. HEENT--PERRL, EOMI, mucous membranes and oropharynx mildly dry Neck--supple. No JVD. No bruits. Thyroid normal, trachea midline, no adenop athy. Heart--normal S1 and S2. No murmurs, rubs or gallops. Lungs--clear bilaterally, no respiratory distress, no accessory muscle use. Abdomen--normal bowel sounds and soft. Extremities--no cyanosis or clubbing. No edema. Dermatologic--normal skin turgor, normal color, no abnormal lymph nodes, no rash. Neurologic--cranial nerves II through XII grossly intact. Rheumatologic--normal range of motion. Psychiatric--normal affect. Results & Data Results & Data Vital Signs (Past 12 Hours) Vital Signs Temp Pulse Pulse Resp BP Pulse Ox O2 Del Method 09/11/25 08:10 97.5 F L 58 L 19 152/68 H 93 Oxymask 09/11/25 07:41 Oxymask 09/11/25 03:47 97.5 F L 55 L 17 149/54 H 90 Oxymask 09/11/25 02:32 Oxymask 09/10/25 23:44 98.1 F 60 17 135/55 L 90 Nasal Cannula 09/10/25 23:11 72 O2 Flow Rate 09/11/25 08:10 6.0 09/11/25 07:41 6 09/11/25 03:47 6 09/11/25 02:32 6 09/10/25 23:44 6 09/10/25 23:11 PG Care Time/CCT Total # of Minutes Spent Total Time Spent with Patient: Total time spent is greater than 50% in coordination of care (as documented) at patient's floor/unit and/or counseling patient: Coding Level of Care Code 14775 SUB INP/OBS CARE 2/35MIN Diagnoses Acute renal failure N17.9 Acute renal failure type: unspecified Pleural effusion J90 CML (chronic myelocytic leukemia) C92.10 Pulmonary hypertension I27.20 Paroxysmal atrial fibrillation I48.0 Hypothyroidism E03.9 Hypercholesterolemia E78.00 Time Spent (min) 35 (1) Acute renal failure Acute renal failure type: unspecified Qualified Code(s): N17.9 - Acute kidney failure, unspecified
--- NOTE | 2025-09-11 09:49 | XRay Report ---
XR chest 1V not portable CLINICAL HISTORY: s/p rt thora COMPARISON STUDY: 09/09/2025 FINDINGS: Stable cardiomegaly with pulmonary vascular congestion. There is a small to moderate left p leural effusion and consolidation at the left lower lung, increased. There is a trace right pleural e ffusion, improved. No pneumothorax seen. IMPRESSION: No pneumothorax seen. Otherwise as described. ACT 112: Negative or not required by law. Electronically signed by: Leonidas Lopez M.D. 09/11/2025 9:47 AM
--- NOTE | 2025-09-11 12:37 | Ultrasound Report ---
ULTRASOUND-GUIDED RIGHT THORACENTESIS CLINICAL HISTORY: Right pleural effusion PROCEDURE: Procedure and risks were explained. Informed consent was obtained. A final timeout was com pleted. The right posterior thorax was prepped and draped in sterile fashion. 1% lidocaine was utiliz ed for skin anesthesia. Utilizing ultrasound guidance, a 5 Turkish safety centesis catheter was advanced into the right pleura l effusion. Ultrasound images were obtained. A total of 1000 mL of pleural fluid was removed and disc arded. The catheter was removed and Band-Aid applied. The patient tolerated the procedure well. A suzanne st x-ray will be obtained and vital signs will be monitored postprocedure. IMPRESSION: Ultrasound-guided right thoracentesis as above. Performed, dictated, and signed by Nehemias Moreira PA-C; to be co-signed by Dr. Leonidas Lopez. Electronically signed by: Leonidas Lopez M.D. 09/11/2025 2:06 PM
[2025-09-11 21:27] VITALS: RESP 18
[2025-09-12 06:31] LABS: Hematocrit (blood only) 33.0 % (37.0-47.0); Hemoglobin 10.5 g/dL (12.0-16.0); Mean Corpuscular Hemoglobin 26.3 pg (25.0-34.0); Mean Corpuscular Volume 82.5 fL (80.0-100.0); Platelet Count 256 K/uL (130-400); RDW Standard Deviation 54.1 fL (36.4-46.3); Red Blood Count 4.00 M/uL (4.20-5.40); White Blood Count 5.08 K/ul (4.8-10.8)
[2025-09-12 06:54] LABS: Anion Gap 7.0 (3-11); Blood Urea Nitrogen 46.0 mg/dl (6-23); Calcium 8.4 mg/dl (8.6-10.3); Carbon Dioxide 20.0 mmol/L (21-32); Chloride 117.0 mmol/L (98-107); Creatinine Clr Calc Pharmacy 22.0 ml/min; Glucose 93.0 mg/dl (70-99(Fasting)); Potassium 4.4 mmol/L (3.5-5.1); Sodium 144.0 mmol/L (136-145)
[2025-09-12 07:55] VITALS: TEMP 97.7
--- NOTE | 2025-09-12 10:39 | Discharge Summary ---
Date of Service September 12, 2025 Admission HPI Per Admitting Provider Pattie Ackerman is a 70yo female with history of CML on Bosutinib (tyrosine kinase inhibitor), paroxysmal atrial fibrillation on Apixaban anticoagulation, Hypothyroidism and HFpEF presenting with fatigue, nausea, vomiting and poor oral intake. Patient with history of CML originally diagnosed in October 2022. She was treated with Imatinib x 2 months which was discontinued due to development of a pruritic rash. Imatinib was tried again but again caused pruritis and rash. She was then tried on Dasatinib which caused her a pruritic rash as well as pleural effusions therefore this medication was discontinued. She was tried again on Dasatinib and again developed dyspnea, volume overload and pleural effusions requiring drainage (drained 08/08/2023 - 800mL serous fluid from LEFT- Pathology NEGATIVE for malignancy). Patient then started on Bosutinib in 08/2023 and has been taking this medication since. Patient was recently admitted to [facility] from 06/24 - 07/02/25 after presenting with shortness of breath and orthopnea. Prior to this hospitalization her diuretics were reduced due to worsening renal function. An echocardiogram was performed and patient was found to have severe pulmonary hypertension with PA pressure > 60mmHg. Patient was diuresed 9-10 kg and unfortunately developed an EMMETT - thought to be secondary to overdiuresis. She had a thoracentesis performed on 07/01/25 with 800mL of fluid removed from the RIGHT lung. Patient's Bosutinib was placed on hold as was her Amlodipine/Olmesartan. She was ultimately discharged home on 07/02/25 with instruction to resume her Bumex on 07/04. She had a 2-step oxygen test performed and patient qualified for 2L O2 with ambulation/activity. Hematology/Oncology on 07/06/25 and her Bosutinib was resumed. Heart Failure on 07/07/25 - she is to continue on Bumex 1gm po daily. Dry weight estimated to be appx 175#. Pulmonary on 07/14/25. Patient was referred to [facility] [facility] for further workup such as right heart catheterization. Heart Failure again on 07/23/25 and her Amlodipine/Olmesartan was resumed. Cardiology on 07/28/25 She was seen by Pulmonary Hypertension Clinic at [facility] on 08/20/25 - Dr. Leonidas Thompson - in summary feels that patient's PH likely in part due to recurrent pleural effusions likely from Bosutinib therapy. He recommends discontinuation of this medication if feasible with reevaluation with echocardiogram in 3 months -Six minute walk test 08/20/25 - walked 270 feet in 6 minutes on room air with O2 of 84% - resting saturation 90% -Spirometry 08/20/25 with no obstructive defect, no significant bronchodilator response, low FVC possibly due to restrictive pathology, moderately impaired diffusion capacity -CT imaging with bilateral pleural effusions -Repeat echo 09/03/2025 with mild LVH, Grade I dysfunction, borderline RV enlargement, mildly dilated LA, RA, moderate MR, RVSP of 50-60mmHg Reports having an outpatient thoracentesis performed on 09/04/25 with one liter removed and again on 09/07/25 with one liter removed. She presents today with one week of fatigue, nausea, vomiting and po intolerance. Also reports decreased urination over the last week - urinates only a small amount once daily. She has chronic diarrhea which is unchanged - no blood. Vomits 1-2 times daily - no blood. Chronic bilateral LE edema - unchanged. Denies pain, redness. No abdominal pain or distention. No chest pain, palpitations. She reports weight loss of approximately 10 pounds in the last two weeks Continues to take her medications as prescribed Admission Exam (Per Admitting) Constitutional The patient is awake, alert and oriented 3, well developed and well nourished, normocephalic and atraumatic, lying in bed and in no acute distress. HEENT--PERRL, EOMI, mucous membranes and oropharynx mildly dry Neck--supple. No JVD. No bruits. Thyroid normal, trachea midline, no adenopathy. Heart--normal S1 and S2. No murmurs, rubs or gallops. Lungs--clear bilaterally, no respiratory distress, no accessory muscle use. Abdomen--normal bowel sounds and soft. Extremities--no cyanosis or clubbing. No edema. Dermatologic--normal skin turgor, normal color, no abnormal lymph nodes, no rash. Neurologic--cranial nerves II through XII grossly intact. Rheumatologic--normal range of motion. Psychiatric--normal affect. Discharge Data Consultations 09/08/25 22:56 ED Decision to Admit Stat Hospital Course (1) Acute renal failure: (2) Pleural effusion: (3) CML (chronic myelocytic leukemia): (4) Pulmonary hypertension: (5) Paroxysmal atrial fibrillation: (6) Hypothyroidism: (7) Hypercholesterolemia: Plan 70yo female with history of CML on Bosutinib (TKI) therapy, paroxysmal atrial fibrillation on Apixaban anticoagulation presenting with one week of generalized weakness and fatigue as well as nausea and decreased oral intake. #Acute renal failure - patient with progressive decline in renal function since 09/2023. At that time her baseline Cr was appx 1. Since then has steadily declined. During her last hospital admission her presenting Cr was 1.93 which peaked at 2.64 following aggressive diuresis. Patient's ARB, diuretics and Bosutinib were placed on hold. Some improvement in her Cr on repeat labs - on 07/28/25 Cr was 1.95. Presenting with acute on chronic renal failure - Cr of 5.33. Patient with metabolic acidosis as well with HCO3=16. pH=7.25. Likely multifactorial - volume depletion in the setting of diuretic use, vomiting, chronic diarrhea and decreased oral intake. Medication effects with Olmesartan, Bumex. Recent thoracenteses performed outpatient, patient reports having 2L of pleural fluid removed recently (1L from each lung) - question post- thoracentesis circulatory dysfunction? -Started on IV Fluids -Will hold potentially nephrotoxic agents - Bumex, Olmesartan, Bosutinib for now -Repeat CXR to evaluate effusions -NaHCO3 650mg po TID x 3 days -BMP q 8 hours -There has been a lot of improvement in renal function, creatinine now 2.44 -Will discharge her today -Will increase the dose of her Amlodpine to 10mg daily -Discontinue Olmersatan #Pleural effusions - recurrent. Noted on CXR performed in the ER. Patient with adequate oxygenation now on room air. Likely secondary to Bosutinib therapy -Now s/p Thoracentesis with removal of 1L of fluid -Hold Bosutinib, to resume after follow up with hematology #CML - patient follows with Oncology. She is on Bosutinib therapy. Concern that this medication is contributing to patient's recurrent pleural effusions, possibly contributing to patient's pulmonary hypertension -Hold Bosutinib for now #Pulmonary hypertension - patient is currently undergoing workup for pulmonary hypertension. Most recent echocardiogram performed on 09/02/25 with RVSP 50-60mmHg -Keep followup appointment with [facility] [place] [facility] Dr. Leonidas Thompson #Hypothyroidism - TSH normal in May -Repeat TSH -Continue Synthroid 175mcg po daily #Elevated troponin - chronic. Patient denies chest pain -Repeat troponin with AM labs -EKG now -Telemetry monitoring #Paroxysmal atrial fibrillation - rate controlled. Patient on anticoagulation with Apixaban -Continue Metoprolol 50mg po BID -continue Apixaban #Hypertension Blood pressure is under good control -Hold Bumex -Hold Olmesartann -Continue Amlodipine, now 10mg daily Stop Olmersatan -Continue Metoprolol 50mg po BID -Monitor #Hyperlipidemia -Continue Atorvastatin 40mg po qHS Deconditioning Will consult PT/OT Ppx - SCDs, Heparin SC Code - Full Dispo - hopefully d/c in the next 24 hrs Coding Level of Care Code 61829 INP/OBS DISCH >30 MIN Diagnoses Acute renal failure N17.9 Acute renal failure type: unspecified Pleural effusion J90 CML (chronic myelocytic leukemia) C92.10 Pulmonary hypertension I27.20 Paroxysmal atrial fibrillation I48.0 Hypothyroidism E03.9 Hypercholesterolemia E78.00 Time Spent (min) 35
[2025-09-12 12:20] VITALS: BP 157/62; O2SAT 94
[2025-09-12 12:59] VITALS: PULSE 72
== END 2025-09-12 13:18 | disposition home or self-care (01) | DRG 683 ==
LOC: SUATTDRO → ED 20:15 → 4W 23:35 → SUATTDRO 23:35 → 4W 09-09 00:27